=== PATIENT | male | born 1930 | race Caucasian/White ===

== ENCOUNTER 2016-06-22 15:04 | Inpatient (IN) | payer OTHER ==
--- NOTE | 2016-06-22 15:18 | PDOC ---
History of Present Illness - General History Source: Patient Exam Limitations: No Limitations - History of Present Illness Initial Comments: 06/22/16 16:40 Patient is a 85 year old male with a significant past medical history of DM and hypertension who presents to the ED via EMS with complaint of hypoglycemia. As per EMS patient was found to have BGM of 23 after D10 patient went up to 66 BGM. As per EMS, patient was found tachycardic at 120, diaphoretic, unresponsive and BP was fine. after glucose pt was feeling improved and seem at baseline. Patient is A&OX3 in the ED.. As per family, they ran out of blood sugar test strips, so they could not monitor his sugar for a couple of days. Patient reports dry cough and SOB for 1 week. He also reports dizziness. He reports bilateral leg swelling for 3 days. He denies nausea, vomiting, diarrhea, constipation or abdominal pain. SH: former smoker PCP - [facility] <Amber Álvarez - Last Filed: 06/22/16 16:40> <Franky Forte - Last Filed: 06/22/16 17:32> - General Chief Complaint: Blood Sugar Problem Stated Complaint: HYPOGLYCEMIA Time Seen by Provider: 06/22/16 15:18 Past History <Amber Álvarez - Last Filed: 06/22/16 16:40> - Past Medical History Diabetes: Yes HTN: Yes Hypercholesterolemia: Yes - Psycho/Social/Smoking Cessation Hx Suicidal Ideation: No Smoking History: Never smoked <Franky Forte - Last Filed: 06/22/16 17:32> - Past Medical History Allergies/Adverse Reactions: Allergies Allergy/AdvReac Type Severity Reaction Status Date / Time No Known Allergies Allergy Verified 06/22/16 15:18 Home Medications: Ambulatory Orders Enalapril Maleate 5 mg PO DAILY 06/22/16 Glipizide [Glipizide Xl] 10 mg PO DAILY 06/22/16 Insulin Detemir [Levemir Flextouch] 20 unit SQ DAILY 06/22/16 Metformin HCl [Metformin HCl ER] 1,000 mg PO BID 06/22/16 Simvastatin 40 mg PO HS 06/22/16 Review of Systems - Review of Systems Able to Perform ROS?: Yes Comments:: 06/22/16 16:40 CONSTITUTIONAL: No reported: Fever, Chills, Diaphoresis, Generalized Weakness, Malaise, Loss of Appetite HEENT: No reported: Rhinorrhea, Nasal Congestion, Throat Pain, Throat Swelling, Difficulty Swallowing, Mouth Swelling, Ear Pain, Eye Pain, Visual Changes CARDIOVASCULAR: No reported: Chest Pain, Syncope, Palpitations, Irregular Heart Rate, Lightheadedness, Peripheral Edema RESPIRATORY: Reported: cough, sob No reported: SOB with Exertion, Orthopnea, Wheezing, Stridor, Hemoptysis GASTROINTESTINAL: No reported: Abdominal pain, Abdominal Distension, Nausea, Vomiting, Diarrhea, Constipation, Melena, Hematochezia GENITOURINARY: No reported: Dysuria, Frequency, Urgency, Hesitancy, Flank Pain, Genital Pain MUSCULOSKELETAL: Reported: leg swelling No reported: Myalgia, Arthralgia, Joint Swelling, Back pain, Neck Pain SKIN: No reported: Rash, Itching, Pallor HEMEATOLOGIC/IMMUNOLOGIC: No reported: Easy Bleeding, Easy Bruising, Lymphadenopathy, Frequent infections ENDOCRINE: No reported: Unexplained Weight Gain, Unexplained Weight Loss, Heat Intolerance , Cold Intolerance NEUROLOGIC: No reported: Headache, Focal Weakness, Paresthesias, Vertigo, Lightheadedness, Unsteady Gait, Seizure, Mental Status Changes, Incontinence PSYCHIATRIC: No reported: Anxiety, Depression <Amber Álvarez - Last Filed: 06/22/16 16:40> *Physical Exam - Vital Signs Last Vital Signs Temp Pulse Resp BP Pulse Ox 97.3 F L 100 H 18 140/90 93 L 06/22/16 15:16 06/22/16 15:16 06/22/16 15:16 06/22/16 15:16 06/22/16 15:16 - Physical Exam Comments: 06/22/16 16:41 GENERAL: The patient is awake, alert, and fully oriented, Nontoxic - in no acute distress. HEAD: Normocephalic, atraumatic. EYES: extraocular movements intact, sclera anicteric, conjunctiva clear. ENT: Normal voice, Moist mucous membranes. NECK: Normal range of motion, supple LUNGS: rales at the bases r>l HEART: Regular rate and rhythm, normal S1 and S2 without murmur, rub or gallop. ABDOMEN: Soft, nontender, normoactive bowel sounds. No guarding, no rebound. No CVA tenderness +dependent edema in the lower back EXTREMITIES: Normal range of motion, +1 pitting edema in the LE, +2x2cm wound with clean margins on L toe without discharge, warmth, induration, slightly erytyemadous. NEUROLOGICAL: No facial assymetry, Normal speech, moving all 4 extrmitiesi spontaneously and symmetrically PSYCH: Normal mood, normal affect. SKIN: Warm, Dry, normal turgor, <Amber Álvarez - Last Filed: 06/22/16 16:40> - Vital Signs Last Vital Signs Temp Pulse Resp BP Pulse Ox 97.3 F L 100 H 18 140/90 93 L 06/22/16 15:16 06/22/16 15:16 06/22/16 15:16 06/22/16 15:16 06/22/16 15:16 <Franky Forte - Last Filed: 06/22/16 17:32> Heart Score/ECG Review - ECG Impressions Comment:: 06/22/16 17:30 Twelve-lead EKG was performed and reviewed by me. There is normal sinus rhythm with a normal rate. Rate of 99 low voltaege qrs, no signs of electrical alternans abnormal r wave progression <Franky Forte - Last Filed: 06/22/16 17:32> ED Treatment Course - LABORATORY CBC & Chemistry Diagram: 06/22/16 15:19 06/22/16 15:19 - ADDITIONAL ORDERS Additional order review: Laboratory Results 06/22/16 06/22/16 06/22/16 15:19 15:19 15:19 INR 1.26 H Sodium 135 L Potassium 3.5 Chloride 96 L Carbon Dioxide 30 Anion Gap 9 BUN 15 Creatinine 1.0 Creat Clearance w eGFR > 60 Random Glucose 72 L Calcium 7.4 L Total Bilirubin 0.6 AST 23 ALT 16 Alkaline Phosphatase 193 H Creatine Kinase 238 Troponin I 0.02 Total Protein 6.8 Albumin 2.9 L TSH 8.13 H Urine Color Yellow Urine Appearance Clear Urine pH 6.0 Ur Specific [place] 1.010 Urine Protein Negative Urine Glucose (UA) 1+ H Urine Ketones Negative Urine Blood Negative Urine Nitrite Negative Urine Bilirubin Negative Urine Urobilinogen 4.0 e.u/dl Ur Leukocyte Esterase Negative 06/22/16 15:19 RBC 3.95 L MCV 89.5 MCHC 33.0 RDW 14.7 MPV 9.2 Neutrophils % 71.9 Lymphocytes % 16.3 Monocytes % 10.3 H Eosinophils % 1.0 Basophils % 0.5 <Amber Álvarez - Last Filed: 06/22/16 16:40> - LABORATORY CBC & Chemistry Diagram: 06/22/16 15:19 06/22/16 15:19 <Franky Forte - Last Filed: 06/22/16 17:32> Medical Decision Making - Medical Decision Making 06/22/16 16:35 Documentation prepared by MINESH Oneill, acting as medical device sales consultant for Franky Forte MD. <Amber Álvarez - Last Filed: 06/22/16 16:40> - Medical Decision Making 06/22/16 15:33 85y M hx of htn, IDDM, HL, presenting with hypoglycemia. The patient was having a nonproductive cough/lema for about a week w/o and fever/chills, today the pt was found unresponsive, diaphoretic with bgm of 25 by EMS, was gven D10 withimporvement to 66, and received d50 here in the ED. pt is currently alert/ oriented and denies any complaints. pt does have edema in the LE as well as some dependent edema on his lower back. pts vitals noted for hypoxia to 93% no RA, some mild rales noted on his pulm exam suspect hypoglycemia secondary to insulin use in setting of not checking his blood suguar. his hypoxia/rales --> chf, renal failure, will ck labs to r/o anemia, metabolic dernagement, acs will place on quality assurance monitor body 06/22/16 16:53 pt just had an episode of hypoglycemia, bgm in th e50s was diaphoretic, confused pt was given d50 with improvement of sypmtoms will feed the ptaient pts labs reviewed noted for hypothyroidism cxr noted for vsacular congestion in light of pts hypoglycemia, edema, suspet may be related to hypothyroidism will admit for further management and work up. 06/22/16 17:00 CRITICAL CARE DOCUMENTATION: I spent ~35 minutes of Critical Care time, excluding separately billable procedures, involving high complexity decision making to assess, manipulate and support vital system function(s) to treat single or multiple vital organ system failure and/or to prevent further life threatening deterioration of the patient' s condition. <Franky Forte - Last Filed: 06/22/16 17:32> *DC/Admit/Observation/Transfer <Amber Álvarez - Last Filed: 06/22/16 16:40> - Discharge Dispostion Admit: Yes <Franky Forte - Last Filed: 06/22/16 17:32> Diagnosis at time of Disposition: Hypoglycemia Hypothyroid Qualifiers: Hypothyroidism type: unspecified Qualified Code(s): E03.9 - Hypothyroidism, unspecified CHF (congestive heart failure) Qualifiers: Congestive heart failure type: unspecified congestive heart failure type Congestive heart failure chronicity: acute Qualified Code(s): I50.9 - Heart failure, unspecified - Referrals Referrals: Sue Brown MD [Primary Care Provider] -
[2016-06-22 15:21] VITALS: BMI 26.9
[2016-06-22 15:39] LABS: BASOPHIL 0.5 % (0-2.0); MCH 29.5 pg (25.7-33.7); MEAN CELL VOLUME 89.5 fl (80-96); MEAN PLT VOLUME 9.2 fl (7.5-11.1); NEUTROPHILS 71.9 % (42.8-82.8); RDW 14.7 % (11.9-15.9); WHITE BLOOD COUNT 4.5 K/mm3 (4.0-10.0)
[2016-06-22 15:50] LABS: INR 1.26 (0.82-1.09); PROTHROMBIN TIME (PATIENT) 13.9 SEC (9.98-11.88)
[2016-06-22 15:57] LABS: PLATELET COMMENT2 FEW LARGE PLTS; PLATELET ESTIMATE DECREASED (NORMAL)
[2016-06-22 15:58] LABS: PLATELET COUNT 131 K/MM3 (134-434)
[2016-06-22 16:00] LABS: ALBUMIN 2.9 g/dl (3.4-5.0); ANION GAP 9 (8-16); BILIRUBIN,TOTAL 0.6 mg/dL (0.2-1.0); CALCIUM 7.4 mg/dL (8.5-10.1); CO2 30 mmol/L (21-32); COCKROFT - GAULT 54.39; GLUCOSE,RANDOM 72 mg/dL (74-106); SGOT/AST 23 U/L (15-37); SGPT/ALT 16 U/L (12-78); TOT PROT 6.8 g/dl (6.4-8.2)
[2016-06-22 16:05] LABS: URINE APPEARANCE CLEAR; URINE BILIRUBIN NEGATIVE (NEGATIVE); URINE BLOOD NEGATIVE (NEGATIVE); URINE COLOR YELLOW; URINE GLUCOSE (UA) 1+ (NEGATIVE); URINE KETONE NEGATIVE (NEGATIVE); URINE LEUK ESTERASE NEGATIVE (NEGATIVE); URINE NITRITE NEGATIVE (NEGATIVE); URINE PROTEIN NEGATIVE (NEGATIVE); URINE UROBILINOGEN 4.0 E.U/dl E.U./dl (0.2-1.0)
[2016-06-22 16:08] LABS: ALK PHOS 193 U/L (45-117); THYROID STIMULATING HORMONE 8.13 uIU/ml (0.358-3.74); TROPONIN I 0.02 ng/ml (0.00-0.05)
[2016-06-22] MEDS ORDERED: DEXTROSE 50%-WATER 50 ML DISP.SYRIN ONE ×4 (16:45→23:45)
[2016-06-22] MEDS ORDERED: FUROSEMIDE 40 MG/4 ML INJECTABLE VIAL IVPUSH ONE (17:00)
[2016-06-22] MEDS ORDERED: FUROSEMIDE 40 MG/4 ML INJECTABLE VIAL ONE (17:12)
[2016-06-22] MEDS ORDERED: DEXTROSE 50%-WATER 50 ML VIAL IVPUSH ONE (18:00)
[2016-06-22] MEDS ORDERED: HEMOQUE TEST 1 EACH EACH ONE (18:16)
--- NOTE | 2016-06-22 18:28 | HP ---
Addendum entered and electronically signed by [email or web address] 06/24/16 08: 02: Correct physical exam: GENERAL: Awake, alert, and fully oriented, in no acute distress. HEAD: Normal with no signs of trauma. EYES: Pupils equal, round and reactive to light, extraocular movements intact, sclera anicteric, conjunctiva clear. No lid lag. EARS, NOSE, THROAT: oropharynx clear without exudates. Moist mucous membranes. NECK: supple +JVD, LUNGS: bibasilar rales HEART: Regular rate and rhythm, normal S1 and S2 grade 2 systolic murmur, PMI deviated left ABDOMEN: Soft, nontender, mod distended distended, globally redyced bowel sounds , lower abd edema MUSCULOSKELETAL: No CVA tenderness. UPPER EXTREMITIES: 2+ pulses, warm, well-perfused. No cyanosis. No clubbing. No peripheral edema. LOWER EXTREMITIES: notp alpable pulses, cool, 3+ pitting edema. NEUROLOGICAL: Cranial nerves II-XII intact. Normal speech. strength 4+/5 , 1+ reflexes upper and lower extremities, PSYCHIATRIC: Cooperative. Good eye contact. Appropriate mood and affect. SKIN: Warm, dry Original Note: CHIEF COMPLAINT: "I have low blood sugar" PCP:Dr Lacie Ontiveros at [address] [place] [address] HISTORY OF PRESENT ILLNESS: This is an 85 yo M with PMH of IDDM, HTN, HLD, who BBEMS after being found unresponsive by . [place] his BG was 23 and increased to 66 after d50 at which time he regained consciousness with baseline mental status. Per family , he developed a subjective fever 2 w ago w/o associated symptoms of sore throat , rhinorrhea, dysuria, diarrhea. 2 weeks ago he also developed a dry cough, increased exercise intolerance with minimal activity of daily living and difficulty sleeping, possibly due to orthopnea. 1 week ago he developed anorexia. 3 days ago he developed diffuse edema, especially in the lower extremities. He denies chest pain or discomfort, palpitations, loc or dizziness. 3 days ago his metformin dose was doubled to 1000 bid. He does not use glucometer strips, states he only checks sugar at doctors office at which time is is 500 and doesn't know his A1C. He has no electronic warfare officer or personal history of heart disease, however he does admit to b/l calf cramping during activity. History partially obtained from . In Er his bg remains in 50's-60' s despite eating. ER course was notable for: (1)labs (2)ekg, cxr (3)lasix 40, d 50 Recent Travel: denies PAST MEDICAL HISTORY: as above PAST SURGICAL HISTORY: denies Social History: lives with Smoking: past heavy smoker Alcohol: denies Drugs: denies Family History: heart disease in mother Allergies No Known Allergies Allergy (Verified 06/22/16 15:18) HOME MEDICATIONS: Home Medications Medication Instructions Recorded Enalapril Maleate 5 mg PO DAILY 06/22/16 Glipizide [Glipizide Xl] 10 mg PO DAILY 06/22/16 Insulin Detemir [Levemir Flextouch] 20 unit SQ DAILY 06/22/16 Metformin HCl [Metformin HCl ER] 1,000 mg PO BID 06/22/16 Simvastatin 40 mg PO HS 06/22/16 REVIEW OF SYSTEMS CONSTITUTIONAL: Absent: diaphoresis HEENT: Absent: rhinorrhea, nasal congestion, throat pain CARDIOVASCULAR: Absent: chest pain, syncope, palpitations, irregular heart rate, lightheadedness RESPIRATORY: Absent: wheezing, stridor, hemoptysis GASTROINTESTINAL: Absent: abdominal pain, nausea, vomiting, diarrhea, constipation GENITOURINARY: Absent: dysuria, flank pain MUSCULOSKELETAL: Absent: myalgia, arthralgia SKIN: Absent: rash, itching, pallor HEMATOLOGIC/IMMUNOLOGIC: Absent: easy bleeding, easy bruising ENDOCRINE: Absent: heat intolerance, cold intolerance NEUROLOGIC: Absent: headache, focal weakness or paresthesias, seizure PSYCHIATRIC: Absent: anxiety, depression PHYSICAL EXAMINATION Vital Signs - 24 hr 06/22/16 17:55 Pulse Rate [ 92 H Apical] Respiratory 18 Rate Blood Pressure 132/82 [Right Arm] O2 Sat by Pulse 96 Oximetry (%) Laboratory Tests 06/22/16 06/22/16 06/22/16 15:19 15:19 15:19 WBC 4.5 Hgb 11.6 L Hct 35.3 L Plt Count 131 L INR 1.26 H Sodium Potassium Chloride Carbon Dioxide Anion Gap BUN Creatinine Creat Clearance w eGFR POC Glucometer Random Glucose Calcium Total Bilirubin AST ALT Alkaline Phosphatase Creatine Kinase Creatine Kinase Index CK-MB (CK-2) Troponin I B-Natriuretic Peptide Total Protein Albumin TSH Urine Color Yellow Urine Appearance Clear Urine pH 6.0 Ur Specific [place] 1.010 Urine Protein Negative Urine Glucose (UA) 1+ H Urine Ketones Negative Urine Blood Negative Urine Nitrite Negative Urine Bilirubin Negative Urine Urobilinogen 4.0 e.u/dl Ur Leukocyte Esterase Negative 06/22/16 06/22/16 06/22/16 15:19 16:21 16:46 WBC Hgb Hct Plt Count INR Sodium 135 L Potassium 3.5 Chloride 96 L Carbon Dioxide 30 Anion Gap 9 BUN 15 Creatinine 1.0 Creat Clearance w eGFR > 60 POC Glucometer < 50 Random Glucose 72 L Calcium 7.4 L Total Bilirubin 0.6 AST 23 ALT 16 Alkaline Phosphatase 193 H Creatine Kinase 238 Creatine Kinase Index 2.4 CK-MB (CK-2) 5.710 H Troponin I 0.02 B-Natriuretic Peptide 8222.24 H Total Protein 6.8 Albumin 2.9 L TSH 8.13 H Urine Color Urine Appearance Urine pH Ur Specific [place] Urine Protein Urine Glucose (UA) Urine Ketones Urine Blood Urine Nitrite Urine Bilirubin Urine Urobilinogen Ur Leukocyte Esterase GENERAL: Awake, alert, and fully oriented, in no acute distress. HEAD: Normal with no signs of trauma. EYES: Pupils equal, round and reactive to light, extraocular movements intact, sclera anicteric, conjunctiva clear. No lid lag. EARS, NOSE, THROAT: Ears normal, nares patent, oropharynx clear without exudates. Moist mucous membranes. NECK: Normal range of motion, supple without lymphadenopathy, JVD, or masses. LUNGS: Breath sounds equal, clear to auscultation bilaterally. No wheezes, and no crackles. No accessory muscle use. HEART: Regular rate and rhythm, normal S1 and S2 without murmur, rub or gallop. ABDOMEN: Soft, nontender, not distended, normoactive bowel sounds, no guarding, no rebound, no masses. No hepatomegaly or splenomegaly. MUSCULOSKELETAL: Normal range of motion at all joints. No bony deformities or tenderness. No CVA tenderness. UPPER EXTREMITIES: 2+ pulses, warm, well-perfused. No cyanosis. No clubbing. No peripheral edema. LOWER EXTREMITIES: 2+ pulses, warm, well-perfused. No calf tenderness. No peripheral edema. NEUROLOGICAL: Cranial nerves II-XII intact. Normal speech. Normal gait. PSYCHIATRIC: Cooperative. Good eye contact. Appropriate mood and affect. SKIN: Warm, dry, normal turgor, no rashes or lesions noted, normal capillary refill. ASSESSMENT/PLAN: This is an 85 yo M with PMH of IDDM, HTN, HLD, who BBEMS after being found unresponsive by . [place] his BG was 23 and increased to 66 after d50 at which time he regained consciousness with baseline mental status. Acute decompensated CHF -possibly brought on by a febrile illness, r/o flu (check swab) vs progression of likely CAD -volume overloaded -EKG l axis, 1 degree av block, poor rv progression, sonspecif t flattening in inferolateral leads, no ACS -trop negative, check one more -BNP 8222 -tele monitoring -lipid panel -TTE -cardio consult -lasix 40 bid IV -will eventually need beta deepthi -will likely need nuclear stress test Hypoglycemia -due to anorexia associated with chf and increased metformin -hold metformin 100bid, glipizide 10 d and levemir 20 d -D10w @25 -BGM q2H IDDM -A1c -diabetic Na restricted diet Possible Hypothyroid -TSH 8.13 -f/u free t4 HTN -enalapril 5d HLD -atorvastatin 40 hs Suspect PAD -would check ankle brachial index FEN D10W@25 slight hyponatremia, hypochloremia due to vol overload Diabetic na restricted diet Dispo admit tele Problem List - Problem (1) CHF (congestive heart failure) Code(s): I50.9 - HEART FAILURE, UNSPECIFIED Qualifiers: Congestive heart failure type: unspecified congestive heart failure type Congestive heart failure chronicity: acute Qualified Code(s): I50.9 - Heart failure, unspecified (2) Hypoglycemia Code(s): E16.2 - HYPOGLYCEMIA, UNSPECIFIED (3) Hypothyroid Code(s): E03.9 - HYPOTHYROIDISM, UNSPECIFIED Qualifiers: Hypothyroidism type: unspecified Qualified Code(s): E03.9 - Hypothyroidism, unspecified (4) Insulin dependent diabetes mellitus Code(s): E11.9 - TYPE 2 DIABETES MELLITUS WITHOUT COMPLICATIONS Z79.4 - GROUP HOME (CURRENT) USE OF INSULIN (5) HLD (hyperlipidemia) Code(s): E78.5 - HYPERLIPIDEMIA, UNSPECIFIED (6) HTN (hypertension) Code(s): I10 - ESSENTIAL (PRIMARY) HYPERTENSION Visit type - Emergency Visit Emergency Visit: Yes ED Registration Date: 06/22/16 Care time: The patient presented to the Emergency Department on the above date and was hospitalized for further evaluation of their emergent condition. - New Patient This patient is new to me today: Yes Date on this admission: 06/22/16 - Critical Care Critical Care patient: No
[2016-06-22] MEDS ORDERED: DEXTROSE 10%-WATER - 1,000 ML IV SCH ×2 (18:45→23:54)
--- NOTE | 2016-06-22 19:21 | PN ---
Teaching Attending Note Name of Resident: Devika Eric ATTENDING PHYSICIAN STATEMENT I saw and evaluated the patient. I reviewed the resident's note and discussed the case with the resident. I agree with the resident's findings and plan as documented. SUBJECTIVE: 85 yo M with DM presents with hypoglycemia and 1-2 weeks of cough, decreased ET. Patient and his famliy state that he recently refilled his scripts for his medication. He did not see his doctor bu for some readson his metformin increased from 500mg once a day to 1000 BID, in addition to prior glipizide and levemir 20. He was found slumped over this afternoon. EMS was called and fsg ws 27. He was given d50 with improvement in FSG and menatl status. IN addition, over the last 1-2 weeks he has developed a dry cough and bilateral LE edema up to the hip with associated decreased ET, getting SOB gong from room to room. he has not had any chest pain palpitations, nausea, vomiting. OBJECTIVE: Gen: NAD HEENT: (+) JVD cor: RRR no m/r/g Resp: faint crackles at bases abdomen: soft, NT, ND ext: 2(+) edema to the hip labs, CXR, EkG reviewed ASSESSMENT AND PLAN: 85 yo M with DM presents with hypoglycemia and 1-2 weeks of cough, decreased ET. Hypoglycemia in setting of increase in metformin and decrease PO over the the last week is likely responsible for hypoglycemia. Will continue to check FSG, give D10 gtt, hold hypoglycemics and insulin. Once FSG improved may start back home meds. would check hba1c. If acceptable a1c his prior regimen may be sufficient. He appears to be iun decomepnsated heart failure with elevated BNP and peripheral edema. Will begin diuresis. EKG with poor RW progression. Will order TTE. Need to follow lytes closely.
[2016-06-22] MEDS ORDERED: DEXTROSE 50%-WATER 50 ML DISP.SYRIN IVPUSH ONE ×2 (20:17→22:02)
[2016-06-22] MEDS: HEPARIN NA (PORCINE) 5,000 UNITS/ML 1ML VIAL SQ SCH (22:43)
[2016-06-22] MEDS: ATORVASTATIN CA 40 MG TABLET (FP) PO SCH (22:44)
[2016-06-22] MEDS: INSULIN SLIDING SCALE (NOVOLOG) 1 VIAL SQ SCH (22:44)
[2016-06-22] MEDS ORDERED: DEXTROSE 50%-WATER 50 ML VIAL ONE (23:56)
[2016-06-23] MEDS ORDERED: DEXTROSE 50%-WATER 50 ML DISP.SYRIN IVPUSH ONE (00:15)
[2016-06-23] MEDS ORDERED: DEXTROSE 50%-WATER 50 ML VIAL IVPUSH ONE ×7 (01:10→23:59)
[2016-06-23] MEDS ORDERED: DEXTROSE 50%-WATER 50 ML VIAL ONE ×4 (01:42→12:21)
[2016-06-23] MEDS ORDERED: DEXTROSE 10%-WATER - 1,000 ML IV SCH ×5 (01:57→17:00)
[2016-06-23] MEDS ORDERED: WATER IV SCH (04:15)
[2016-06-23] MEDS ORDERED: WATER FOR INJ STERILE DEXTROSE IV SCH (04:15)
[2016-06-23] MEDS ORDERED: FUROSEMIDE 40 MG/4 ML INJECTABLE VIAL IVPUSH SCH (06:00)
[2016-06-23] MEDS: INSULIN SLIDING SCALE (NOVOLOG) 1 VIAL SQ SCH ×3 (06:18→17:19)
[2016-06-23 08:40] LABS: MCH 29.6 pg (25.7-33.7); MCHC 33.1 g/dl (32.0-35.9); MEAN CELL VOLUME 89.6 fl (80-96); MEAN PLT VOLUME 9.3 fl (7.5-11.1); PLATELET COUNT 140 K/MM3 (134-434); RDW 14.7 % (11.9-15.9); WHITE BLOOD COUNT 5.6 K/mm3 (4.0-10.0)
[2016-06-23 08:59] LABS: CALCIUM 7.8 mg/dL (8.5-10.1); MAGNESIUM 1.7 mg/dL (1.8-2.4)
[2016-06-23 09:04] LABS: COCKROFT - GAULT 63.29; CREATININE 0.9 mg/dL (0.7-1.3); FREE T4 1.14 ng/dl (0.76-1.16)
[2016-06-23] MEDS ORDERED: MAGNESIUM SULF 50% (8.12 MEQ/2 ML-1 GM VIAL) IVPB ONE (09:30)
--- NOTE | 2016-06-23 09:37 | CONSULT ---
Consult - text type - Consultation Consultation Note: Cardiology 85 year old male, DM , HTN, lipids exertional dyspnea, fatigue for 3 days, admitted with syncope and low blood sugar. He denies any cardiac symptoms, otherwise. social NA allergy NA Fh NA Surgery NA PMH as above PE: BP high and low normal cardiac exam pulmonary exam fine rales 1/2 up abdomen soft + 3 leg edema EKG NSR, low voltage, low R anteriorly, non-specific T CXR cardiomegaly, CHF Impression: syncope low BG CHF, no SC or arrythmias Evaluate for CAD leg edema, ? due to CHF, but venous disease or other etiology maybe evaluated Rec: Corina Echocardiogram will re-evaluate after Echocardiogram results aspirin 81 mg daily DVT prophylaxis
--- NOTE | 2016-06-23 09:37 | PN ---
Progress Note (short form) - Note Progress Note: Subjective: no cp or SOB , has no fever , no cough, feels " fine ". over night he remained hypoglycemic and required increased rate of his D10 IVF and frequent D50 pushes Objective: Vital Signs: Last Vital Signs Temp Pulse Resp BP Pulse Ox 98.9 F 101 H 20 167/72 98 06/23/16 08:38 06/23/16 08:38 06/23/16 08:38 06/23/16 08:38 06/23/16 04:38 I&O: Intake & Output 06/20/16 06/21/16 06/22/16 06/23/16 23:59 23:59 23:59 23:59 Intake Total 175 290 Balance 175 290 Weight 174 lb 12.8 oz 164 lb 6.4 oz Physical Exam: NAD , Awake , alet , knows he is in a hospital, knows his date of , not current date . HEENT: b/l periorbital edema , round equal pupils , reactive to light , no facial droop, MMM. CV: RRR, no MRG. JVD b/l Lungs " bibasilar crackles Abd :soft, NT, ND , NL BS Ext : 2+ pitting edema on LE , from knee down L > R and on both feet. L medial big toe ulcer with black eschar . evidence of fungal infection among toes b/l Labs: Laboratory Results - last 24 hr 06/22/16 06/22/16 06/22/16 15:19 15:19 15:19 WBC 4.5 RBC 3.95 L Hgb 11.6 L Hct 35.3 L MCV 89.5 MCHC 33.0 RDW 14.7 Plt Count 131 L MPV 9.2 Neutrophils % 71.9 Lymphocytes % 16.3 Monocytes % 10.3 H Eosinophils % 1.0 Basophils % 0.5 Platelet Estimate Decreased Platelet Comment Few large plts INR 1.26 H Sodium Potassium Chloride Carbon Dioxide Anion Gap BUN Creatinine Creat Clearance w eGFR POC Glucometer Random Glucose Hemoglobin A1c % Calcium Phosphorus Magnesium Total Bilirubin AST ALT Alkaline Phosphatase Creatine Kinase Creatine Kinase Index CK-MB (CK-2) CK-MB (CK-2) Rel Index Troponin I B-Natriuretic Peptide Total Protein Albumin TSH Free T4 Urine Color Yellow Urine Appearance Clear Urine pH 6.0 Ur Specific [place] 1.010 Urine Protein Negative Urine Glucose (UA) 1+ H Urine Ketones Negative Urine Blood Negative Urine Nitrite Negative Urine Bilirubin Negative Urine Urobilinogen 4.0 e.u/dl Ur Leukocyte Esterase Negative 06/22/16 06/22/16 06/22/16 15:19 15:19 16:21 WBC RBC Hgb Hct MCV MCHC RDW Plt Count MPV Neutrophils % Lymphocytes % Monocytes % Eosinophils % Basophils % Platelet Estimate Platelet Comment INR Sodium 135 L Potassium 3.5 Chloride 96 L Carbon Dioxide 30 Anion Gap 9 BUN 15 Creatinine 1.0 Creat Clearance w eGFR > 60 POC Glucometer Random Glucose 72 L Hemoglobin A1c % Calcium 7.4 L Phosphorus Magnesium Total Bilirubin 0.6 AST 23 ALT 16 Alkaline Phosphatase 193 H Creatine Kinase 238 Creatine Kinase Index 2.4 CK-MB (CK-2) 5.710 H CK-MB (CK-2) Rel Index Cancelled Troponin I 0.02 B-Natriuretic Peptide 8222.24 H Total Protein 6.8 Albumin 2.9 L TSH 8.13 H Free T4 Urine Color Urine Appearance Urine pH Ur Specific [place] Urine Protein Urine Glucose (UA) Urine Ketones Urine Blood Urine Nitrite Urine Bilirubin Urine Urobilinogen Ur Leukocyte Esterase 06/22/16 06/22/16 06/22/16 16:46 18:20 19:30 WBC RBC Hgb Hct MCV MCHC RDW Plt Count MPV Neutrophils % Lymphocytes % Monocytes % Eosinophils % Basophils % Platelet Estimate Platelet Comment INR Sodium Potassium Chloride Carbon Dioxide Anion Gap BUN Creatinine Creat Clearance w eGFR POC Glucometer < 50 144.64656 Random Glucose Hemoglobin A1c % Calcium Phosphorus Magnesium Total Bilirubin AST ALT Alkaline Phosphatase Creatine Kinase Creatine Kinase Index CK-MB (CK-2) CK-MB (CK-2) Rel Index Troponin I 0.02 B-Natriuretic Peptide Total Protein Albumin TSH Free T4 Urine Color Urine Appearance Urine pH Ur Specific [place] Urine Protein Urine Glucose (UA) Urine Ketones Urine Blood Urine Nitrite Urine Bilirubin Urine Urobilinogen Ur Leukocyte Esterase 06/22/16 06/23/16 06/23/16 22:42 00:43 01:39 WBC RBC Hgb Hct MCV MCHC RDW Plt Count MPV Neutrophils % Lymphocytes % Monocytes % Eosinophils % Basophils % Platelet Estimate Platelet Comment INR Sodium Potassium Chloride Carbon Dioxide Anion Gap BUN Creatinine Creat Clearance w eGFR POC Glucometer 61 58 92 Random Glucose Hemoglobin A1c % Calcium Phosphorus Magnesium Total Bilirubin AST ALT Alkaline Phosphatase Creatine Kinase Creatine Kinase Index CK-MB (CK-2) CK-MB (CK-2) Rel Index Troponin I B-Natriuretic Peptide Total Protein Albumin TSH Free T4 Urine Color Urine Appearance Urine pH Ur Specific [place] Urine Protein Urine Glucose (UA) Urine Ketones Urine Blood Urine Nitrite Urine Bilirubin Urine Urobilinogen Ur Leukocyte Esterase 06/23/16 06/23/16 06/23/16 03:50 04:25 05:20 WBC RBC Hgb Hct MCV MCHC RDW Plt Count MPV Neutrophils % Lymphocytes % Monocytes % Eosinophils % Basophils % Platelet Estimate Platelet Comment INR Sodium Potassium Chloride Carbon Dioxide Anion Gap BUN Creatinine Creat Clearance w eGFR POC Glucometer 55 Random Glucose 69 L 34 L* D Hemoglobin A1c % Calcium Phosphorus Magnesium Total Bilirubin AST ALT Alkaline Phosphatase Creatine Kinase Creatine Kinase Index CK-MB (CK-2) CK-MB (CK-2) Rel Index Troponin I B-Natriuretic Peptide Total Protein Albumin TSH Free T4 Urine Color Urine Appearance Urine pH Ur Specific [place] Urine Protein Urine Glucose (UA) Urine Ketones Urine Blood Urine Nitrite Urine Bilirubin Urine Urobilinogen Ur Leukocyte Esterase 06/23/16 06/23/16 06/23/16 06:26 06:30 06:30 WBC 5.6 RBC 4.03 Hgb 11.9 Hct 36.1 MCV 89.6 MCHC 33.1 RDW 14.7 Plt Count 140 MPV 9.3 Neutrophils % Lymphocytes % Monocytes % Eosinophils % Basophils % Platelet Estimate Platelet Comment INR Sodium 133 L Potassium 3.7 Chloride 93 L Carbon Dioxide 30 Anion Gap 10 BUN 12 Creatinine 0.9 Creat Clearance w eGFR POC Glucometer 62 Random Glucose 23 L* D Hemoglobin A1c % Calcium 7.8 L Phosphorus 4.0 Magnesium 1.7 L Total Bilirubin AST ALT Alkaline Phosphatase Creatine Kinase Creatine Kinase Index CK-MB (CK-2) CK-MB (CK-2) Rel Index Troponin I B-Natriuretic Peptide Total Protein Albumin TSH Free T4 1.14 Urine Color Urine Appearance Urine pH Ur Specific [place] Urine Protein Urine Glucose (UA) Urine Ketones Urine Blood Urine Nitrite Urine Bilirubin Urine Urobilinogen Ur Leukocyte Esterase 06/23/16 06/23/16 06/23/16 06:30 07:00 08:05 WBC RBC Hgb Hct MCV MCHC RDW Plt Count MPV Neutrophils % Lymphocytes % Monocytes % Eosinophils % Basophils % Platelet Estimate Platelet Comment INR Sodium Potassium Chloride Carbon Dioxide Anion Gap BUN Creatinine Creat Clearance w eGFR POC Glucometer 56 40 Random Glucose Hemoglobin A1c % 10.8 H Calcium Phosphorus Magnesium Total Bilirubin AST ALT Alkaline Phosphatase Creatine Kinase Creatine Kinase Index CK-MB (CK-2) CK-MB (CK-2) Rel Index Troponin I B-Natriuretic Peptide Total Protein Albumin TSH Free T4 Urine Color Urine Appearance Urine pH Ur Specific [place] Urine Protein Urine Glucose (UA) Urine Ketones Urine Blood Urine Nitrite Urine Bilirubin Urine Urobilinogen Ur Leukocyte Esterase Imaging: Cxray reviewed. congestion Assessment/Plan: 85 y/o gentleman with h/o IDDM , and HTN, who lives with daughter . He was lynnette here after being found unresponsive and was found to be in Heart failure and hypoglycemia 1- Persistent hypoglycemia : unlcear if patient took more of his glipizide or extra insulin as he injects his own insulin and has mild dementia. also has not been taking goop po in past week probably due to heart failure induced anorexia . Also glipizide might stay in his system for longer time . sugar still 30-40 despite increased rate of D10 . - increase rate of D10 to 65. - give PRN D50 pushes. - d/c diabetic diet until sugar is elevated - cont to hold all diabetic meds - pt is awake , and alert and at his base line mental status - if unable to treat , will consult Endo 2- New onset of acute decompensated heart failure. not celar if systolic or diastolic . not sure of trigger . - increase lasix to 60 BID as I am increasing his D10 rate . can always adjust dose later - I&O not being documented, insert oneill for accuracy - Echo is pending . - cont ACEI - avoid BB in acute phase, until his volume is managed and he is stable - transfer to tele to detect any arrhythmias - Card consult is still pending - trop nl x2 and EKG showed nl sinus rhythm with L axis and no ST.TW changes. has poor R progression - if Ef is low , might need a R , and L heart cath 3- Hyponatremia : likely hypotonic in setting hypervolemia from heart failure monitor 4- HTN: cont ACEI . can increase dose if needed 5- hypomagnesemia : replete DVT px Visit type - Emergency Visit Emergency Visit: Yes ED Registration Date: 06/22/16 Care time: The patient presented to the Emergency Department on the above date and was hospitalized for further evaluation of their emergent condition. - New Patient This patient is new to me today: Yes Date on this admission: 06/23/16 - Critical Care Critical Care patient: No
[2016-06-23] MEDS ORDERED: FUROSEMIDE 40 MG/4 ML INJECTABLE VIAL IVPUSH ONE (10:00)
[2016-06-23] MEDS ORDERED: ENALAPRIL MALEATE 5 MG TABLET (FP) PO SCH (10:00)
[2016-06-23] MEDS: ASPIRIN COATED 81 MG TABLET.EC PO SCH (10:12)
[2016-06-23] MEDS: ENALAPRIL MALEATE 2.5 MG TABLET (FP) PO SCH (10:12)
[2016-06-23] MEDS: HEPARIN NA (PORCINE) 5,000 UNITS/ML 1ML VIAL SQ SCH ×2 (10:12→21:11)
[2016-06-23 11:34] LABS: URINE APPEARANCE CLEAR; URINE BILIRUBIN NEGATIVE (NEGATIVE); URINE BLOOD NEGATIVE (NEGATIVE); URINE COLOR COLORLESS; URINE GLUCOSE (UA) NEGATIVE (NEGATIVE); URINE KETONE NEGATIVE (NEGATIVE); URINE LEUK ESTERASE NEGATIVE (NEGATIVE); URINE NITRITE NEGATIVE (NEGATIVE); URINE PROTEIN NEGATIVE (NEGATIVE); URINE UROBILINOGEN NEGATIVE E.U./dl (0.2-1.0)
--- NOTE | 2016-06-23 12:28 | EKG ---
Test Reason : Blood Pressure : / mmHG Vent. Rate : 099 BPM Atrial Rate : 099 BPM P-R Int : 178 ms QRS Dur : 088 ms QT Int : 310 ms P-R-T Axes : 031 -27 065 degrees QTc Int : 397 ms NORMAL SINUS RHYTHM LOW VOLTAGE QRS CANNOT RULE OUT ANTERIOR INFARCT , AGE UNDETERMINED NONSPECIFIC ST ABNORMALITY ABNORMAL ECG NO PREVIOUS ECGS AVAILABLE Confirmed by AMAIRANI SHAH MD ([id number]) on 06/23/2016 12:28:03 PM Referred By: Confirmed By:AMAIRANI SHAH MD
[2016-06-23] MEDS: FUROSEMIDE 40 MG/4 ML INJECTABLE VIAL IVPUSH SCH (15:06)
[2016-06-23] MEDS: ATORVASTATIN CA 40 MG TABLET (FP) PO SCH (21:11)
[2016-06-24] MEDS: FUROSEMIDE 40 MG/4 ML INJECTABLE VIAL IVPUSH SCH ×2 (06:37→14:56)
[2016-06-24] MEDS: INSULIN SLIDING SCALE (NOVOLOG) 1 VIAL SQ SCH ×4 (06:37→16:41)
[2016-06-24 09:04] LABS: ALBUMIN 2.9 g/dl (3.4-5.0); ANION GAP 10 (8-16); CALCIUM 7.7 mg/dL (8.5-10.1); CO2 33 mmol/L (21-32); GLUCOSE,RANDOM 107 mg/dL (74-106); MAGNESIUM 1.8 mg/dL (1.8-2.4); PHOSPHOROUS 3.7 mg/dL (2.5-4.9)
[2016-06-24 09:07] LABS: ALK PHOS 162 U/L (45-117); BILIRUBIN,TOTAL 0.7 mg/dL (0.2-1.0); COCKROFT - GAULT 56.86; SGOT/AST 24 U/L (15-37); SGPT/ALT 15 U/L (12-78); TOT PROT 6.6 g/dl (6.4-8.2)
[2016-06-24] MEDS: ASPIRIN COATED 81 MG TABLET.EC PO SCH (11:11)
[2016-06-24] MEDS: HEPARIN NA (PORCINE) 5,000 UNITS/ML 1ML VIAL SQ SCH ×2 (11:12→22:22)
[2016-06-24] MEDS: ENALAPRIL MALEATE 2.5 MG TABLET (FP) PO SCH (11:13)
--- NOTE | 2016-06-24 14:18 | PN ---
Teaching Attending Note Name of Resident: Devika Eric ATTENDING PHYSICIAN STATEMENT I saw and evaluated the patient. I reviewed the resident's note and discussed the case with the resident. I agree with the resident's findings and plan as documented. SUBJECTIVE: no fever or chills, no SOB , no REZA . OBJECTIVE: NAD, Awake , alet , knows he is in a hospital, knows his date of , not current date. HEENT: b/l periorbital edema better today , round equal pupils CV: RRR, no MRG. JVD b/l Lungs : bibasilar crackles( improved ) Abd :soft, NT, ND , NL BS Ext: 1+ pitting edema on LE , from knee down L > R and on both feet. L medial big toe ulcer with black eschar . evidence of fungal infection among toes b/ l ASSESSMENT AND PLAN: 85 y/o gentleman with h/o IDDM , and HTN, who lives with daughter . He was lynnette here after being found unresponsive and was found to be in Heart failure and hypoglycemia 1- Hypoglycemia : likely due to decreased po intake, and decreased liver metabolism of his glipizide ( due to heart failure ) Finally GLC has improved - dc D10 . - check BGM q 2 hrs for today. cover only if GlC > 200 fro today - will adjust SSI and might resume levemir tomorrow - change diet to diabetic 2- New onset of acute decompensated heart failure. not celar if systolic or diastolic . - cont lasix at 60 BID - echo pending - cont ACEI , with close monitoring of his bP. might need to decrease enalapril dose - avoid BB in acute phase if has low EF , until stabilized 3- Hyponatremia : likely hypotonic in setting hypervolemia from heart failure monitor 4- HTN: now BP on lower side .cont ACEI . 5- monitor electrolytes DVT px
--- NOTE | 2016-06-24 15:41 | PN ---
Physical Exam: SUBJECTIVE: Patient seen and examined Resting in bed NAD. No acute events, no events on tele. afebrile and hemodynamically stable. BG 96 before breakfast and 118 after. feels well. states he still has poor appetite. no sob, cough, chest pain, n/v or h/a. OBJECTIVE: Vital Signs Period Temp Pulse Resp BP Sys/Arboleda Pulse Ox Last 24 Hr 97.3 F-98.2 F 84-94 18-21 91-102/49-68 94-100 GENERAL: Awake, alert, and fully oriented, in no acute distress. HEAD: Normal with no signs of trauma. EYES: Pupils equal, round and reactive to light, extraocular movements intact, sclera anicteric, conjunctiva clear. No lid lag. EARS, NOSE, THROAT: oropharynx clear without exudates. Moist mucous membranes. NECK: supple +JVD, LUNGS: bibasilar rales HEART: Regular rate and rhythm, normal S1 and S2 grade 2 systolic murmur, PMI deviated left ABDOMEN: Soft, nontender, mod distended distended, globally reduced bowel sounds , no abd edema MUSCULOSKELETAL: No CVA tenderness. UPPER EXTREMITIES: 2+ pulses, warm, well-perfused. No cyanosis. No clubbing. No peripheral edema. LOWER EXTREMITIES: not palpable pulses, cool, 1+ pitting edema, improved. NEUROLOGICAL: Cranial nerves II-XII intact. Normal speech. strength 4+/5 , 1+ reflexes upper and lower extremities, PSYCHIATRIC: Cooperative. Good eye contact. Appropriate mood and affect. SKIN: Warm, dry Laboratory Results - last 24 hr 06/22/16 06/22/16 06/22/16 17:59 20:14 20:22 Sodium Potassium Chloride Carbon Dioxide Anion Gap BUN Creatinine Creat Clearance w eGFR POC Glucometer 51.57629 32 204 Random Glucose Calcium Phosphorus Magnesium Total Bilirubin AST ALT Alkaline Phosphatase Total Protein Albumin 06/22/16 06/22/16 06/23/16 22:00 23:43 01:07 Sodium Potassium Chloride Carbon Dioxide Anion Gap BUN Creatinine Creat Clearance w eGFR POC Glucometer 29 41 45 Random Glucose Calcium Phosphorus Magnesium Total Bilirubin AST ALT Alkaline Phosphatase Total Protein Albumin 06/23/16 06/23/16 06/23/16 02:36 05:19 11:55 Sodium Potassium Chloride Carbon Dioxide Anion Gap BUN Creatinine Creat Clearance w eGFR POC Glucometer 42 45 35 Random Glucose Calcium Phosphorus Magnesium Total Bilirubin AST ALT Alkaline Phosphatase Total Protein Albumin 06/23/16 06/23/16 06/23/16 17:12 19:40 21:08 Sodium Potassium Chloride Carbon Dioxide Anion Gap BUN Creatinine Creat Clearance w eGFR POC Glucometer 102 111 89 Random Glucose Calcium Phosphorus Magnesium Total Bilirubin AST ALT Alkaline Phosphatase Total Protein Albumin 06/23/16 06/24/16 06/24/16 23:55 02:11 03:33 Sodium Potassium Chloride Carbon Dioxide Anion Gap BUN Creatinine Creat Clearance w eGFR POC Glucometer 63 86 91 Random Glucose Calcium Phosphorus Magnesium Total Bilirubin AST ALT Alkaline Phosphatase Total Protein Albumin 06/24/16 06/24/16 06/24/16 05:44 08:00 08:18 Sodium 133 L Potassium 3.8 Chloride 90 L Carbon Dioxide 33 H Anion Gap 10 BUN 15 D Creatinine 1.0 Creat Clearance w eGFR > 60 POC Glucometer 86 118 Random Glucose 107 H D Calcium 7.7 L Phosphorus 3.7 Magnesium 1.8 Total Bilirubin 0.7 AST 24 ALT 15 Alkaline Phosphatase 162 H Total Protein 6.6 Albumin 2.9 L 06/24/16 06/24/16 06/24/16 10:15 11:49 14:03 Sodium Potassium Chloride Carbon Dioxide Anion Gap BUN Creatinine Creat Clearance w eGFR POC Glucometer 149 164 220 Random Glucose Calcium Phosphorus Magnesium Total Bilirubin AST ALT Alkaline Phosphatase Total Protein Albumin Active Medications Generic Name Dose Route Start Last Admin Trade Name Freq PRN Reason Stop Dose Admin Aspirin 81 mg 06/23/16 10:00 06/24/16 11:11 Ecotrin - PO 81 mg DAILY MI Administration Atorvastatin Calcium 40 mg 06/22/16 22:00 06/23/16 21:11 Lipitor - PO 40 mg HS MI Administration Enalapril Maleate 5 mg 06/23/16 10:00 06/24/16 11:13 Vasotec - PO Not Given DAILY MI Furosemide 60 mg 06/23/16 14:00 06/24/16 14:56 Lasix Injection - IVPUSH 60 mg BID@0600,1400 MI Administration Heparin Sodium (Porcine) 5,000 unit 06/22/16 22:00 06/24/16 11:12 Heparin - SQ 5,000 unit BID MI Administration Insulin Aspart 1 vial 06/23/16 11:00 06/24/16 14:14 Novolog Vial Sliding Scale - SQ 2 units TIDAC MI Administration Protocol Nystatin 1 applic 06/24/16 14:15 Nystop Powder - TP DAILY MI ASSESSMENT/PLAN: This is an 85 yo M with PMH of IDDM, HTN, HLD, who BBEMS after being found unresponsive by . [place] his BG was 23 and increased to 66 after d50 at which time he regained consciousness with baseline mental status. Acute decompensated CHF -likely due to CAD; BNP 8222 -EKG l axis, 1 degree av block, poor rv progression, sonspecif t flattening in inferolateral leads, no ACS -volume overload improved with dieresis -tele monitoring no acute events -lipid panel well controlled -TTE p/d -lasix 60 bid IV -asa 81 d -cardio on board -will eventually need beta deepthi -will likely need nuclear stress test Hypoglycemia -due to anorexia associated with chf and liver congestion, slowed glipizide metabolism -hold metformin 100bid, glipizide 10 d and levemir 20 d -D10w @40, switch to d5w if sugars remain adequate -BGM q2H IDDM -poorly controlled, A1c =10.8 -Na restricted diet subclinical vs sick Hypothyroid -TSH 8.13 -free t4 wnl -no treatment indicated HTN -enalapril 5d HLD -atorvastatin 40 hs Suspect PAD -would check ankle brachial index FEN D10W@40 slight hyponatremia, hypochloremia due to vol overload na restricted diet Dispo tele Problem List - Problems (1) CHF (congestive heart failure) Code(s): I50.9 - HEART FAILURE, UNSPECIFIED Qualifiers: Congestive heart failure type: unspecified congestive heart failure type Congestive heart failure chronicity: acute Qualified Code(s): I50.9 - Heart failure, unspecified (2) Hypoglycemia Code(s): E16.2 - HYPOGLYCEMIA, UNSPECIFIED (3) Hypothyroid Code(s): E03.9 - HYPOTHYROIDISM, UNSPECIFIED Qualifiers: Hypothyroidism type: unspecified Qualified Code(s): E03.9 - Hypothyroidism, unspecified (4) Insulin dependent diabetes mellitus Code(s): E11.9 - TYPE 2 DIABETES MELLITUS WITHOUT COMPLICATIONS Z79.4 - CUSTODIAL (CURRENT) USE OF INSULIN (5) HLD (hyperlipidemia) Code(s): E78.5 - HYPERLIPIDEMIA, UNSPECIFIED (6) HTN (hypertension) Code(s): I10 - ESSENTIAL (PRIMARY) HYPERTENSION Visit type - Emergency Visit Emergency Visit: Yes ED Registration Date: 06/22/16 Care time: The patient presented to the Emergency Department on the above date and was hospitalized for further evaluation of their emergent condition. - New Patient This patient is new to me today: No - Critical Care Critical Care patient: No - Discharge Referral Referred to [facility] No
[2016-06-24] MEDS: NYSTATIN POWDER 100,000 UNITS/GM - 15 GM TOPICAL POWDER TP SCH (17:16)
--- NOTE | 2016-06-24 18:54 | CONSULT ---
Consult - text type - Consultation Consultation Note: Cardiology symptoms better PE: vitals stable normal cardio-pulmonary symptoms abdomen soft +3 leg edema Impression: acute systolic CHF, severely reduced EF, moderate MR and TR, mild aortic sclerosis Rec: lisinopril/hctz /.5 digoxin 0.125 mg daily aldactone 25 mg daily metoprolol 25 mg daily Aspirin optimize form CHF can be discharged if asymptomatic close outpatient cardiac follow-up
[2016-06-24] MEDS: SPIRONOLACTONE 25 MG TABLET (FP) PO SCH (22:22)
[2016-06-24] MEDS: DIGOXIN 0.125 MG TABLET (FP) PO SCH (22:22)
[2016-06-24] MEDS: ATORVASTATIN CA 40 MG TABLET (FP) PO SCH (22:22)
[2016-06-24] MEDS: METOPROLOL TARTRATE 25 MG TABLET (FP) PO SCH (22:23)
[2016-06-24] MEDS: LISINOPRIL 10 MG TABLET (FP) PO SCH (22:23)
[2016-06-25] MEDS: CIPROFLOXACIN HCL 0.3% OPHTH 2.5ML BOTTLE OU SCH ×4 (06:51→17:51)
[2016-06-25] MEDS: INSULIN SLIDING SCALE (NOVOLOG) 1 VIAL SQ SCH ×3 (06:52→16:50)
[2016-06-25] MEDS: FUROSEMIDE 40 MG/4 ML INJECTABLE VIAL IVPUSH SCH ×2 (06:52→13:31)
[2016-06-25 07:58] LABS: CALCIUM 7.4 mg/dL (8.5-10.1); MAGNESIUM 1.8 mg/dL (1.8-2.4)
[2016-06-25 07:59] LABS: COCKROFT - GAULT 71.89; CREATININE 0.8 mg/dL (0.7-1.3); PHOSPHOROUS 3.7 mg/dL (2.5-4.9)
[2016-06-25] MEDS: ENALAPRIL MALEATE 2.5 MG TABLET (FP) PO SCH (09:15)
[2016-06-25] MEDS: LISINOPRIL 10 MG TABLET (FP) PO SCH (09:15)
[2016-06-25] MEDS: METOPROLOL TARTRATE 25 MG TABLET (FP) PO SCH (09:15)
[2016-06-25] MEDS: ASPIRIN COATED 81 MG TABLET.EC PO SCH (09:16)
[2016-06-25] MEDS: SPIRONOLACTONE 25 MG TABLET (FP) PO SCH (09:16)
[2016-06-25] MEDS: DIGOXIN 0.125 MG TABLET (FP) PO SCH (09:16)
[2016-06-25] MEDS: HEPARIN NA (PORCINE) 5,000 UNITS/ML 1ML VIAL SQ SCH ×2 (09:16→22:41)
[2016-06-25] MEDS: NYSTATIN POWDER 100,000 UNITS/GM - 15 GM TOPICAL POWDER TP SCH (11:29)
[2016-06-25] MEDS: CARVEDILOL 12.5 MG TABLET (FP) PO SCH ×2 (11:30→22:41)
--- NOTE | 2016-06-25 13:30 | PN ---
Teaching Attending Note Name of Resident: eDvika Eric ATTENDING PHYSICIAN STATEMENT I saw and evaluated the patient. I reviewed the resident's note and discussed the case with the resident. I agree with the resident's findings and plan as documented. SUBJECTIVE: no fever or chills, no abd pain. no SOB , feels better . over night was started on ophthalmic Abx drops for bacterial conjunctivitis OBJECTIVE: NAD, Awake , alet HEENT: b/l periorbital edema better resolved , round equal pupils . slightly erythematous congested conjunctivae CV: RRR, no MRG. JVD b/l Lungs : bibasilar crackles, half way down Abd :soft, NT, ND , NL BS Ext: 1+ pitting edema on LE , from knee down L > R and on both feet. L medial big toe ulcer with black eschar . evidence of fungal infection among toes b/ l ASSESSMENT AND PLAN: 85 y/o gentleman with h/o IDDM , and HTN, who lives with daughter . He was lynnette here after being found unresponsive and was found to be in Heart failure and hypoglycemia 1- Hypoglycemia : likely due to decreased po intake, and decreased liver metabolism of his glipizide ( due to heart failure ) now off D10. - SSI TIA AC - cont hold other diabetic meds. - probably tomorrow can start low dose lantus ( 4-5 units ) - will not resume glipizide at dc - will not resume metformin after dc due to heart failure 2- New onset of acute decompensated systolic heart failure. - Cont lasix at 60 BID , cont to be in volume overload - started on lisinopril yesterday, but currently on enalapril. will dc lisinopril - dc digoxin due to risk of toxicity in elderly patients . - change metorpolol to coreg 12.5 BID . can increase dose if tolerated - rest of work up as outpt 3- Hyponatremia : likely hypotonic in setting hypervolemia from heart failure monitor 4- HTN: monitor in the setting of newly added medications 5- monitor electrolytes DVT px
--- NOTE | 2016-06-25 13:59 | PN ---
Physical Exam: SUBJECTIVE: Patient seen and examined Resting in bed NAD. No acute events, a few PVCs on tele. afebrile and hemodynamically stable. BG mid 100's-low 200's. feels well. appetite improved. no sob, cough, chest pain, n/v or h/a. OBJECTIVE: Vital Signs Period Temp Pulse Resp BP Sys/Arboleda Pulse Ox Last 24 Hr 97.7 F-99.2 F 70-92 18-20 98-114/59-68 94-97 GENERAL: Awake, alert, and fully oriented, in no acute distress. HEAD: Normal with no signs of trauma. EYES: Pupils equal, round and reactive to light, extraocular movements intact, sclera anicteric, conjunctiva clear. No lid lag. EARS, NOSE, THROAT: oropharynx clear without exudates. Moist mucous membranes. NECK: supple mild JVD, LUNGS: bibasilar rales unchanged from yesterday HEART: Regular rate and rhythm, normal S1 and S2 grade 2 systolic murmur, PMI deviated left ABDOMEN: Soft, nontender, mod distended distended, globally reduced bowel sounds , no abd edema MUSCULOSKELETAL: No CVA tenderness. UPPER EXTREMITIES: 2+ pulses, warm, well-perfused. No cyanosis. No clubbing. No peripheral edema. LOWER EXTREMITIES: not palpable pulses, cool, 1+ pitting edema, improved from yesterday. NEUROLOGICAL: Cranial nerves II-XII intact. Normal speech. strength 4+/5 , 1+ reflexes upper and lower extremities, PSYCHIATRIC: Cooperative. Good eye contact. Appropriate mood and affect. SKIN: Warm, dry Laboratory Results - last 24 hr 06/24/16 06/24/16 06/24/16 14:03 16:35 18:09 Sodium Potassium Chloride Carbon Dioxide Anion Gap BUN Creatinine POC Glucometer 220 140 140 Random Glucose Calcium Phosphorus Magnesium 06/24/16 06/24/16 06/25/16 20:18 22:13 00:28 Sodium Potassium Chloride Carbon Dioxide Anion Gap BUN Creatinine POC Glucometer 164 165 152 Random Glucose Calcium Phosphorus Magnesium 06/25/16 06/25/16 06/25/16 03:05 05:35 05:42 Sodium 133 L Potassium 4.1 Chloride 92 L Carbon Dioxide 32 Anion Gap 9 BUN 19 H D Creatinine 0.8 POC Glucometer 139 137 Random Glucose 140 H D Calcium 7.4 L Phosphorus 3.7 Magnesium 1.8 06/25/16 06/25/16 06/25/16 07:03 08:43 11:23 Sodium Potassium Chloride Carbon Dioxide Anion Gap BUN Creatinine POC Glucometer 135 138 176 Random Glucose Calcium Phosphorus Magnesium Active Medications Generic Name Dose Route Start Last Admin Trade Name Freq PRN Reason Stop Dose Admin Aspirin 81 mg 06/23/16 10:00 06/25/16 09:16 Ecotrin - PO 81 mg DAILY MI Administration Atorvastatin Calcium 40 mg 06/22/16 22:00 06/24/16 22:22 Lipitor - PO 40 mg HS MI Administration Carvedilol 12.5 mg 06/25/16 10:00 06/25/16 11:30 Coreg - PO 12.5 mg BID MI Administration Ciprofloxacin 2 drop 06/25/16 00:30 06/25/16 11:32 Ciloxan 0.3% Eye Drops - OU 2 drop Q6HPO MI Administration Enalapril Maleate 5 mg 06/23/16 10:00 06/25/16 09:15 Vasotec - PO 5 mg DAILY MI Administration Furosemide 60 mg 06/23/16 14:00 06/25/16 13:31 Lasix Injection - IVPUSH 60 mg BID@0600,1400 MI Administration Heparin Sodium (Porcine) 5,000 unit 06/22/16 22:00 06/25/16 09:16 Heparin - SQ 5,000 unit BID MI Administration Insulin Aspart 1 vial 06/23/16 11:00 06/25/16 11:29 Novolog Vial Sliding Scale - SQ Not Given TIDAC [facility] Protocol Nystatin 1 applic 06/24/16 14:15 06/25/16 11:29 Nystop Powder - TP 1 applic DAILY MI Administration Spironolactone 25 mg 06/24/16 19:00 06/25/16 09:16 Aldactone - PO 25 mg DAILY MI Administration ASSESSMENT/PLAN: This is an 85 yo M with PMH of IDDM, HTN, HLD, who BBEMS after being found unresponsive by . [place] his BG was 23 and increased to 66 after d50 at which time he regained consciousness with baseline mental status. Acute decompensated CHF -likely due to CAD; admission BNP 8222 and congested CXR -EKG L axis, 1 degree av block, poor rv progression, sonspecif t flattening in inferolateral leads, no ACS -volume overload improved with dieresis, however not euvolemic yet -TTE severely reduced EF -evaluated by cardiology -lasix 60 bid IV, enalapril 5 will titrate up, coreg 12.5 bid will titrate up, aldactone 25 d -asa 81 d -will likely need nuclear stress test or cath outpatient Hypoglycemia -due to anorexia associated with chf and liver congestion, slowed glipizide metabolism -resolved IDDM -poorly controlled, A1c =10.8 -on d/c will stop glipizide 10 d. For now hold metformin 100bid and levemir 20 d -BGM TIDAC -sliding scale -Diabetic Na restricted diet subclinical vs sick Hypothyroid -TSH 8.13 -free t4 wnl -no treatment indicated HTN -meds as above HLD -atorvastatin 40 hs Suspect PAD -would check ankle brachial index FEN no ivf lytes stable Diabetic na restricted diet Dispo tele Problem List - Problems (1) CHF (congestive heart failure) Code(s): I50.9 - HEART FAILURE, UNSPECIFIED Qualifiers: Congestive heart failure type: unspecified congestive heart failure type Congestive heart failure chronicity: acute Qualified Code(s): I50.9 - Heart failure, unspecified (2) Hypoglycemia Code(s): E16.2 - HYPOGLYCEMIA, UNSPECIFIED (3) Hypothyroid Code(s): E03.9 - HYPOTHYROIDISM, UNSPECIFIED Qualifiers: Hypothyroidism type: unspecified Qualified Code(s): E03.9 - Hypothyroidism, unspecified (4) Insulin dependent diabetes mellitus Code(s): E11.9 - TYPE 2 DIABETES MELLITUS WITHOUT COMPLICATIONS Z79.4 - CUSTODIAL (CURRENT) USE OF INSULIN (5) HLD (hyperlipidemia) Code(s): E78.5 - HYPERLIPIDEMIA, UNSPECIFIED (6) HTN (hypertension) Code(s): I10 - ESSENTIAL (PRIMARY) HYPERTENSION (7) Systolic and diastolic CHF w/reduced LV function, NYHA class 4 Code(s): I50.40 - UNSP COMBINED SYSTOLIC AND DIASTOLIC (CONGESTIVE) HRT FAIL Visit type - Emergency Visit Emergency Visit: Yes ED Registration Date: 06/22/16 Care time: The patient presented to the Emergency Department on the above date and was hospitalized for further evaluation of their emergent condition. - New Patient This patient is new to me today: No - Critical Care Critical Care patient: No - Discharge Referral Referred to [facility] No
[2016-06-25] MEDS: ATORVASTATIN CA 40 MG TABLET (FP) PO SCH (22:41)
[2016-06-26] MEDS: CIPROFLOXACIN HCL 0.3% OPHTH 2.5ML BOTTLE OU SCH ×4 (06:54→18:11)
[2016-06-26] MEDS: INSULIN SLIDING SCALE (NOVOLOG) 1 VIAL SQ SCH ×3 (07:01→18:10)
[2016-06-26] MEDS: FUROSEMIDE 40 MG/4 ML INJECTABLE VIAL IVPUSH SCH ×2 (07:24→13:04)
[2016-06-26] MEDS: INSULIN DETEMIR 100 UNITS/ML MDV SQ SCH (07:25)
[2016-06-26 09:10] LABS: CALCIUM 7.7 mg/dL (8.5-10.1); COCKROFT - GAULT 46.77; CREATININE 1.2 mg/dL (0.7-1.3); MAGNESIUM 1.8 mg/dL (1.8-2.4)
[2016-06-26] MEDS: CARVEDILOL 12.5 MG TABLET (FP) PO SCH ×2 (09:59→23:34)
[2016-06-26] MEDS: ASPIRIN COATED 81 MG TABLET.EC PO SCH (09:59)
[2016-06-26] MEDS: HEPARIN NA (PORCINE) 5,000 UNITS/ML 1ML VIAL SQ SCH ×2 (09:59→23:34)
[2016-06-26] MEDS: NYSTATIN POWDER 100,000 UNITS/GM - 15 GM TOPICAL POWDER TP SCH (09:59)
[2016-06-26] MEDS: SPIRONOLACTONE 25 MG TABLET (FP) PO SCH (10:00)
[2016-06-26] MEDS: ENALAPRIL MALEATE 2.5 MG TABLET (FP) PO SCH (10:00)
--- NOTE | 2016-06-26 10:00 | CONSULT ---
Consult - text type - Consultation Consultation Note: Cardiology symptoms better, frail and lethargic PE: vitals stable normal cardio-pulmonary symptoms abdomen soft +3 leg edema, better Impression: acute systolic CHF, severely reduced EF, moderate MR and TR, mild aortic sclerosis large left plural effusion, most likely due to CHF, but pulmonary evaluation helpful ARF BP low lipids within target hypothyroid, ? need for treatment Rec: optimize CHF can be discharged if asymptomatic close outpatient cardiac follow-up hold diuretics due to BP digoxin 0.125 mg daily
[2016-06-26] MEDS: DIGOXIN 0.125 MG TABLET (FP) PO SCH (11:29)
--- NOTE | 2016-06-26 12:20 | PN ---
Teaching Attending Note Name of Resident: Devika Eric ATTENDING PHYSICIAN STATEMENT I saw and evaluated the patient. I reviewed the resident's note and discussed the case with the resident. I agree with the resident's findings and plan as documented. SUBJECTIVE:currently asymptomatic. denies CP, SOB,fever, chills, cough. OBJECTIVE: Last Vital Signs Temp Pulse Resp BP Pulse Ox 97.8 F 72 22 109/67 97 06/26/16 10:00 06/26/16 11:29 06/26/16 10:00 06/26/16 10:00 06/25/16 21:00 Intake & Output 06/23/16 06/24/16 06/25/16 06/26/16 23:59 23:59 23:59 23:59 Intake Total 1462 650 520 Output Total 2800 4350 2670 100 Balance -1338 -3700 -2150 -100 Weight 164 lb 6.4 oz 164 lb 2 oz 166 lb 162 lb General NAD CV S1 S2 RRR no murmur/rub/gallop Lungs CTA B/L no wheezing/rales/rhonchi Extremities 1+pitting edema ASSESSMENT AND PLAN: 85yo M with PMH DM, HTN and dyslipidemia presented to the ER and was admitted for further evalaution of their emergent condition 1. Acute systolic CHF- newly diagnosed. appears near-euvloemic at this time. on high doses of lasix IV. will d/c a this time and convert to po tomorrow. metoprolol switched to coreg. on acei. cont asa/spiroloactone/statin/digoxin. cardio on board 2. Hypoglycema- now WNL. A1c 10.8. was on oral agent which were likely being slowly metabolized in setting of kidney failure. now on levemir 5 units. will monitor sugars. will hold oral agents on discharge 3. DEBBIE- likely induced from lasix. holding lasix iv. will convert to po in AM 4. Hyponatremia- likely due to volume overload. now resolved 5. HTN- now hypotensive. monitor closely 6. DVT ppx- hep sq 7. PT evaluation. will likely benefit from MARI. will assess today. should be medically optimized for discharge tomorrow
--- NOTE | 2016-06-26 14:22 | PN ---
Physical Exam: SUBJECTIVE: Patient seen and examined Resting in bed NAD. No acute events, a few PVCs on tele. afebrile and hemodynamically stable. Blood pressure 80's 90's systolic w/o symptoms. HR 70' s. BG mid 100's-low 200's. feels well. appetite improved. no sob, weakness, dizziness, cough, chest pain, n/v or h/a. OBJECTIVE: Vital Signs Period Temp Pulse Resp BP Sys/Arboleda Pulse Ox Last 24 Hr 97.8 F-98.7 F 70-88 20-22 80-109/40-67 97-97 GENERAL: Awake, alert, and fully oriented, in no acute distress. HEAD: Normal with no signs of trauma. EYES: Pupils equal, round and reactive to light, extraocular movements intact, sclera anicteric, conjunctiva clear. No lid lag. EARS, NOSE, THROAT: oropharynx clear without exudates. Moist mucous membranes. NECK: supple mild JVD, LUNGS: bibasilar crackles, improved HEART: Regular rate and rhythm, normal S1 and S2 grade 2 systolic murmur, PMI deviated left ABDOMEN: Soft, nontender, mod distended distended, globally reduced bowel sounds , no abd edema MUSCULOSKELETAL: No CVA tenderness. UPPER EXTREMITIES: 2+ pulses, warm, well-perfused. No cyanosis. No clubbing. No peripheral edema. LOWER EXTREMITIES: not palpable pulses, cool, 1+ pitting edema, improved from yesterday. NEUROLOGICAL: Cranial nerves II-XII intact. Normal speech. strength 4+/5 , 1+ reflexes upper and lower extremities, PSYCHIATRIC: Cooperative. Good eye contact. Appropriate mood and affect. SKIN: Warm, dry Laboratory Results - last 24 hr 06/25/16 06/25/16 06/25/16 14:13 16:42 21:52 Sodium Potassium Chloride Carbon Dioxide Anion Gap BUN Creatinine POC Glucometer 224 226 54 Random Glucose Calcium Phosphorus Magnesium 06/25/16 06/26/16 06/26/16 22:37 00:45 05:25 Sodium Potassium Chloride Carbon Dioxide Anion Gap BUN Creatinine POC Glucometer 110 107 127 Random Glucose Calcium Phosphorus Magnesium 06/26/16 06/26/16 05:40 11:09 Sodium 136 Potassium 4.5 Chloride 90 L Carbon Dioxide 32 Anion Gap 14 BUN 30 H D Creatinine 1.2 D POC Glucometer 195 Random Glucose 116 H Calcium 7.7 L Phosphorus 4.0 Magnesium 1.8 Active Medications Generic Name Dose Route Start Last Admin Trade Name Freq PRN Reason Stop Dose Admin Aspirin 81 mg 06/23/16 10:00 06/26/16 09:59 Ecotrin - PO 81 mg DAILY MI Administration Atorvastatin Calcium 40 mg 06/22/16 22:00 06/25/16 22:41 Lipitor - PO 40 mg HS MI Administration Carvedilol 12.5 mg 06/25/16 10:00 06/26/16 09:59 Coreg - PO Not Given BID [facility] Ciprofloxacin 2 drop 06/25/16 00:30 06/26/16 11:29 Ciloxan 0.3% Eye Drops - OU 2 drop Q6HPO MI Administration Digoxin 0.125 mg 06/26/16 10:15 06/26/16 11:29 Lanoxin - PO 0.125 mg DAILY MI Administration Enalapril Maleate 5 mg 06/23/16 10:00 06/26/16 10:00 Vasotec - PO Not Given DAILY MI Furosemide 40 mg 06/26/16 10:02 06/26/16 13:04 Lasix Injection - IVPUSH 40 mg BID@0600,1400 MI Administration Heparin Sodium (Porcine) 5,000 unit 06/22/16 22:00 06/26/16 09:59 Heparin - SQ 5,000 unit BID MI Administration Insulin Aspart 1 vial 06/23/16 11:00 06/26/16 11:30 Novolog Vial Sliding Scale - SQ Not Given TIDAC [facility] Protocol Insulin Detemir 5 units 06/26/16 07:00 06/26/16 07:25 Levemir Vial SQ Not Given AM [facility] Nystatin 1 applic 06/24/16 14:15 06/26/16 09:59 Nystop Powder - TP 1 applic DAILY MI Administration Spironolactone 25 mg 06/24/16 19:00 06/26/16 10:00 Aldactone - PO Not Given DAILY [facility] ASSESSMENT/PLAN: This is an 85 yo M with PMH of IDDM, HTN, HLD, who BBEMS after being found unresponsive by . [place] his BG was 23 and increased to 66 after d50 at which time he regained consciousness with baseline mental status. Acute decompensated CHF -likely due to CAD; admission BNP 8222 and congested CXR -EKG L axis, 1 degree av block, poor rv progression, sonspecif t flattening in inferolateral leads, no ACS -volume overload improved with dieresis, almost euvolemic (diuresed 6 L over past 2 days, lost 12 lb since admission) -TTE severely reduced EF -evaluated by cardiology -lasix 40 bid IV, enalapril 5 will titrate up, coreg 12.5 bid will titrate up, aldactone 25 d, digoxin 0.125 -will switch to po lasix tomorrow -asa 81 d -will likely need nuclear stress test or cath outpatient -will need [employer] wearable defibrillator on dc -PT eval Hypoglycemia -due to anorexia associated with chf and liver congestion, slowed glipizide metabolism -resolved IDDM -poorly controlled, A1c =10.8 -on d/c will stop glipizide 10 d and metformin 100bid. Hold levemir 20 d -BGM TIDAC -sliding scale -levemir 5 u AM -Diabetic Na restricted diet subclinical vs sick Hypothyroid -TSH 8.13 -free t4 wnl -no treatment indicated HTN -meds as above HLD -atorvastatin 40 hs Suspect PAD -would check ankle brachial index FEN no ivf lytes stable Diabetic na restricted diet Dispo tele Problem List - Problems (1) CHF (congestive heart failure) Code(s): I50.9 - HEART FAILURE, UNSPECIFIED Qualifiers: Congestive heart failure type: unspecified congestive heart failure type Congestive heart failure chronicity: acute Qualified Code(s): I50.9 - Heart failure, unspecified (2) Hypoglycemia Code(s): E16.2 - HYPOGLYCEMIA, UNSPECIFIED (3) Hypothyroid Code(s): E03.9 - HYPOTHYROIDISM, UNSPECIFIED Qualifiers: Hypothyroidism type: unspecified Qualified Code(s): E03.9 - Hypothyroidism, unspecified (4) Insulin dependent diabetes mellitus Code(s): E11.9 - TYPE 2 DIABETES MELLITUS WITHOUT COMPLICATIONS Z79.4 - [facility] (CURRENT) USE OF INSULIN (5) HLD (hyperlipidemia) Code(s): E78.5 - HYPERLIPIDEMIA, UNSPECIFIED (6) HTN (hypertension) Code(s): I10 - ESSENTIAL (PRIMARY) HYPERTENSION (7) Systolic and diastolic CHF w/reduced LV function, NYHA class 4 Code(s): I50.40 - UNSP COMBINED SYSTOLIC AND DIASTOLIC (CONGESTIVE) HRT FAIL Visit type - Emergency Visit Emergency Visit: Yes ED Registration Date: 06/22/16 Care time: The patient presented to the Emergency Department on the above date and was hospitalized for further evaluation of their emergent condition. - New Patient This patient is new to me today: No - Critical Care Critical Care patient: No - Discharge Referral Referred to [facility] No
[2016-06-26] MEDS ORDERED: PT OWN MED DRAWER 7, Y5N ONE (18:13)
[2016-06-26] MEDS: ATORVASTATIN CA 40 MG TABLET (FP) PO SCH (23:34)
[2016-06-27] MEDS: FUROSEMIDE 40 MG/4 ML INJECTABLE VIAL IVPUSH SCH (07:00)
[2016-06-27] MEDS: INSULIN SLIDING SCALE (NOVOLOG) 1 VIAL SQ SCH ×3 (07:00→17:35)
[2016-06-27] MEDS: CIPROFLOXACIN HCL 0.3% OPHTH 2.5ML BOTTLE OU SCH ×5 (07:01→22:31)
[2016-06-27 08:14] LABS: CALCIUM 7.5 mg/dL (8.5-10.1); COCKROFT - GAULT 43.28; CREATININE 1.3 mg/dL (0.7-1.3); MAGNESIUM 1.8 mg/dL (1.8-2.4); PHOSPHOROUS 4.6 mg/dL (2.5-4.9)
[2016-06-27] MEDS: INSULIN DETEMIR 100 UNITS/ML MDV SQ SCH (10:08)
[2016-06-27] MEDS: NYSTATIN POWDER 100,000 UNITS/GM - 15 GM TOPICAL POWDER TP SCH (10:09)
[2016-06-27] MEDS: ASPIRIN COATED 81 MG TABLET.EC PO SCH (10:09)
[2016-06-27] MEDS: DIGOXIN 0.125 MG TABLET (FP) PO SCH (10:09)
[2016-06-27] MEDS: CARVEDILOL 12.5 MG TABLET (FP) PO SCH ×2 (10:09→22:26)
[2016-06-27] MEDS: HEPARIN NA (PORCINE) 5,000 UNITS/ML 1ML VIAL SQ SCH ×2 (10:09→22:26)
[2016-06-27] MEDS: ENALAPRIL MALEATE 2.5 MG TABLET (FP) PO SCH (10:09)
[2016-06-27] MEDS: SPIRONOLACTONE 25 MG TABLET (FP) PO SCH (10:09)
[2016-06-27] MEDS ORDERED: MAGNESIUM SULF 50% (8.12 MEQ/2 ML-1 GM VIAL) IVPB ONE (11:45)
--- NOTE | 2016-06-27 14:41 | PN ---
Addendum entered and electronically signed by Devika Eric RES 06/27/16 14: 52: p: Endocrinology consult placed Original Note: Physical Exam: SUBJECTIVE: Patient seen and examined Resting in bed NAD. No acute events, a run of 10 v tach and PVCs on tele. afebrile and hemodynamically stable. Blood pressure 100/61 HR 67. BG mid 100's- low 200's. feels well. appetite improved. Feels stronger. Ambulated 85ft with pt using walker, wabbling gait noted. no sob, weakness, dizziness, cough, chest pain, n/v or h/a. OBJECTIVE: Vital Signs Period Temp Pulse Resp BP Sys/Arboleda Pulse Ox Last 24 Hr 97.8 F-98.3 F 67-88 18-22 95-122/54-75 94-97 GENERAL: Awake, alert, and fully oriented, in no acute distress. HEAD: Normal with no signs of trauma. EYES: Pupils equal, round and reactive to light, extraocular movements intact, sclera anicteric, conjunctiva clear. No lid lag. EARS, NOSE, THROAT: oropharynx clear without exudates. Moist mucous membranes. NECK: supple mild JVD, LUNGS: bibasilar crackles, improved HEART: Regular rate and rhythm, normal S1 and S2 grade 2 systolic murmur, PMI deviated left ABDOMEN: Soft, nontender, mod distended distended, globally reduced bowel sounds , no abd edema MUSCULOSKELETAL: No CVA tenderness. UPPER EXTREMITIES: 2+ pulses, warm, well-perfused. No cyanosis. No clubbing. No peripheral edema. LOWER EXTREMITIES: not palpable pulses, cool, 1+ pitting edema, improved from yesterday. NEUROLOGICAL: Cranial nerves II-XII intact. Normal speech. strength 4+/5 , 1+ reflexes upper and lower extremities, PSYCHIATRIC: Cooperative. Good eye contact. Appropriate mood and affect. SKIN: Warm, dry Laboratory Results - last 24 hr 06/26/16 06/26/16 06/27/16 15:40 23:18 05:35 Sodium 132 L Potassium 4.4 Chloride 87 L Carbon Dioxide 31 Anion Gap 14 BUN 38 H D Creatinine 1.3 POC Glucometer 224 143 Random Glucose 150 H D Calcium 7.5 L Phosphorus 4.6 Magnesium 1.8 06/27/16 06/27/16 06/27/16 06:09 11:25 14:12 Sodium Potassium Chloride Carbon Dioxide Anion Gap BUN Creatinine POC Glucometer 149 217 123 Random Glucose Calcium Phosphorus Magnesium Active Medications Generic Name Dose Route Start Last Admin Trade Name Carla PRN Reason Stop Dose Admin Aspirin 81 mg 06/23/16 10:00 06/27/16 10:09 Ecotrin - PO 81 mg DAILY MI Administration Atorvastatin Calcium 40 mg 06/22/16 22:00 06/26/16 23:34 Lipitor - PO 40 mg HS MI Administration Carvedilol 12.5 mg 06/25/16 10:00 06/27/16 10:09 Coreg - PO Not Given BID MI Ciprofloxacin 2 drop 06/25/16 00:30 06/27/16 11:30 Ciloxan 0.3% Eye Drops - OU 2 drop Q6HPO MI Administration Enalapril Maleate 5 mg 06/23/16 10:00 06/27/16 10:09 Vasotec - PO Not Given DAILY MI Furosemide 40 mg 06/28/16 10:00 Lasix - PO DAILY MI Heparin Sodium (Porcine) 5,000 unit 06/22/16 22:00 06/27/16 10:09 Heparin - SQ 5,000 unit BID MI Administration Insulin Aspart 1 vial 06/23/16 11:00 06/27/16 11:30 Novolog Vial Sliding Scale - SQ 2 units TIDAC MI Administration Protocol Insulin Detemir 5 units 06/26/16 07:00 06/27/16 10:08 Levemir Vial SQ 5 units AM MI Administration Nystatin 1 applic 06/24/16 14:15 06/27/16 10:09 Nystop Powder - TP 1 applic DAILY MI Administration Spironolactone 25 mg 06/24/16 19:00 06/27/16 10:09 Aldactone - PO 25 mg DAILY MI Administration ASSESSMENT/PLAN: This is an 85 yo M with PMH of IDDM, HTN, HLD, who BBEMS after being found unresponsive by . [place] his BG was 23 and increased to 66 after d50 at which time he regained consciousness with baseline mental status. Acute decompensated CHF -likely due to CAD; admission BNP 8222 and congested CXR -EKG L axis, 1 degree av block, poor rv progression, sonspecif t flattening in inferolateral leads, no ACS -TTE severely reduced EF -evaluated by cardiology -euvolemic. Stop IV lasix. Start lasix 40 po daily tomorrow -enalapril 5 will titrate up, coreg 12.5 bid will titrate up, aldactone 25 d -stop digoxin, not indicated; patient not tachycardic and BP wnl -asa 81 d -nuclear stress test tomorrow -EP eval for defibrillator -cont PT Hypoglycemia -due to anorexia associated with chf and liver congestion, slowed glipizide metabolism -resolved IDDM -poorly controlled, A1c =10.8 -on d/c will stop glipizide 10 d and metformin 100bid. Hold levemir 20 d -BGM TIDAC -sliding scale requires 2 u /day -levemir 5 u AM -Diabetic Na restricted diet subclinical vs sick Hypothyroid -TSH 8.13 -free t4 wnl -no treatment indicated HTN -meds as above HLD -atorvastatin 40 hs Suspect PAD -would check ankle brachial index FEN no ivf lytes stable Diabetic na restricted diet Dispo tele Problem List - Problems (1) CHF (congestive heart failure) Code(s): I50.9 - HEART FAILURE, UNSPECIFIED Qualifiers: Congestive heart failure type: unspecified congestive heart failure type Congestive heart failure chronicity: acute Qualified Code(s): I50.9 - Heart failure, unspecified (2) Hypoglycemia Code(s): E16.2 - HYPOGLYCEMIA, UNSPECIFIED (3) Hypothyroid Code(s): E03.9 - HYPOTHYROIDISM, UNSPECIFIED Qualifiers: Hypothyroidism type: unspecified Qualified Code(s): E03.9 - Hypothyroidism, unspecified (4) Insulin dependent diabetes mellitus Code(s): E11.9 - TYPE 2 DIABETES MELLITUS WITHOUT COMPLICATIONS Z79.4 - ASSISTED (CURRENT) USE OF INSULIN (5) HLD (hyperlipidemia) Code(s): E78.5 - HYPERLIPIDEMIA, UNSPECIFIED (6) HTN (hypertension) Code(s): I10 - ESSENTIAL (PRIMARY) HYPERTENSION (7) Systolic and diastolic CHF w/reduced LV function, NYHA class 4 Code(s): I50.40 - UNSP COMBINED SYSTOLIC AND DIASTOLIC (CONGESTIVE) HRT FAIL Visit type - Emergency Visit Emergency Visit: Yes ED Registration Date: 06/22/16 Care time: The patient presented to the Emergency Department on the above date and was hospitalized for further evaluation of their emergent condition. - New Patient This patient is new to me today: No - Critical Care Critical Care patient: No - Discharge Referral Referred to [facility] No
--- NOTE | 2016-06-27 17:14 | PN ---
Teaching Attending Note Name of Resident: Devika Eric ATTENDING PHYSICIAN STATEMENT I saw and evaluated the patient. I reviewed the resident's note and discussed the case with the resident. I agree with the resident's findings and plan as documented. Vital Signs Temperature 98 F 06/27/16 14:00 Pulse Rate 85 06/27/16 14:00 Respiratory Rate 20 06/27/16 14:00 Blood Pressure 122/75 06/27/16 14:00 O2 Sat by Pulse Oximetry (%) 96 06/27/16 10:21 CBCD WBC 5.6 K/mm3 (4.0-10.0) 06/23/16 06:30 RBC 4.03 M/mm3 (4.00-5.60) 06/23/16 06:30 Hgb 11.9 GM/dL (11.7-16.9) 06/23/16 06:30 Hct 36.1 % (35.4-49) 06/23/16 06:30 MCV 89.6 fl (80-96) 06/23/16 06:30 MCHC 33.1 g/dl (32.0-35.9) 06/23/16 06:30 RDW 14.7 % (11.9-15.9) 06/23/16 06:30 Plt Count 140 K/MM3 (134-434) 06/23/16 06:30 MPV 9.3 fl (7.5-11.1) 06/23/16 06:30 CMP Sodium 132 mmol/L (136-145) L 06/27/16 05:35 Potassium 4.4 mmol/L (3.5-5.1) 06/27/16 05:35 Chloride 87 mmol/L (98-107) L 06/27/16 05:35 Carbon Dioxide 31 mmol/L (21-32) 06/27/16 05:35 Anion Gap 14 (8-16) 06/27/16 05:35 BUN 38 mg/dL (7-18) H D 06/27/16 05:35 Creatinine 1.3 mg/dL (0.7-1.3) 06/27/16 05:35 Creat Clearance w eGFR > 60 (>60) 06/24/16 08:18 Random Glucose 150 mg/dL (74-106) H D 06/27/16 05:35 Calcium 7.5 mg/dL (8.5-10.1) L 06/27/16 05:35 Total Bilirubin 0.7 mg/dL (0.2-1.0) 06/24/16 08:18 AST 24 U/L (15-37) 06/24/16 08:18 ALT 15 U/L (12-78) 06/24/16 08:18 Alkaline Phosphatase 162 U/L (45-117) H 06/24/16 08:18 Total Protein 6.6 g/dl (6.4-8.2) 06/24/16 08:18 Albumin 2.9 g/dl (3.4-5.0) L 06/24/16 08:18 CARDIAC ENZYMES Creatine Kinase 238 IU/L (39-308) 06/22/16 15:19 Troponin I 0.02 ng/ml (0.00-0.05) 06/22/16 19:30 Current Medications Generic Name Dose Route Start Last Admin Trade Name Freq PRN Reason Stop Dose Admin Aspirin 81 mg 06/23/16 10:00 06/27/16 10:09 Ecotrin - PO 81 mg DAILY MI Administration Atorvastatin Calcium 40 mg 06/22/16 22:00 06/26/16 23:34 Lipitor - PO 40 mg HS MI Administration Carvedilol 12.5 mg 06/25/16 10:00 06/27/16 10:09 Coreg - PO Not Given BID [facility] Ciprofloxacin 2 drop 06/25/16 00:30 06/27/16 11:30 Ciloxan 0.3% Eye Drops - OU 2 drop Q6HPO MI Administration Enalapril Maleate 5 mg 06/23/16 10:00 06/27/16 10:09 Vasotec - PO Not Given DAILY MI Furosemide 40 mg 06/28/16 10:00 Lasix - PO DAILY [facility] Heparin Sodium (Porcine) 5,000 unit 06/22/16 22:00 06/27/16 10:09 Heparin - SQ 5,000 unit BID MI Administration Insulin Aspart 1 vial 06/23/16 11:00 06/27/16 11:30 Novolog Vial Sliding Scale - SQ 2 units TIDAC [facility] Administration Protocol Insulin Detemir 5 units 06/26/16 07:00 06/27/16 10:08 Levemir Vial SQ 5 units AM MI Administration Nystatin 1 applic 06/24/16 14:15 06/27/16 10:09 Nystop Powder - TP 1 applic DAILY MI Administration Spironolactone 25 mg 06/24/16 19:00 06/27/16 10:09 Aldactone - PO 25 mg DAILY MI Administration Home Medications Medication Instructions Recorded Enalapril Maleate 5 mg PO DAILY 06/22/16 Insulin Detemir [Levemir Flextouch] 20 unit SQ DAILY 06/22/16 Simvastatin 40 mg PO HS 06/22/16 Laboratory Tests 06/22/16 06/23/16 06/24/16 15:19 06:30 08:18 Creatinine 1.0 0.9 1.0 06/25/16 06/26/16 06/27/16 05:35 05:40 05:35 Creatinine 0.8 1.2 D 1.3 General NAD CV S1 S2 RRR no murmur/rub/gallop Lungs CTA B/L no wheezing/rales/rhonchi Extremities 1+pitting edema ECHO: LV systolic function severely reduced, severe global hypokinesis ASSESSMENT AND PLAN: 85yo M with PMH DM, HTN and dyslipidemia presented to the ER for Acute hypoglycemia and was admitted for further evaluation of their emergent condition # VTs in Telemetry unit will maximize the mag level to 2.0 , ernie get ( [employer]) to evaluate the patient # Severe global hypokinesis with severely reduced LV systolic function ; will order Persantine thalium stress test for am # Acute systolic CHF- newly diagnosed.on IV lasix , will switch to po lasix now , metoprolol switched to coreg. on acei. cont asa/spiroloactone/statin will discontinue digoxin. # Acute Hypoglycema improved with A1c 10.8. will discontinue po meds. will place her on levemir 5 units for consult. # DEBBIE will switch to po lasix today # Acute hyponatremia will monitor DVT ppx- hep sq PT evaluation
[2016-06-27] MEDS ORDERED: SODIUM CHLORIDE 500 ML IV STA (17:43)
--- NOTE | 2016-06-27 18:04 | CONSULT ---
Consult Consult Specialty:: Endocrinology Referred by:: Dr ortiz Reason for Consultation:: Hypoglycemia - History of Present Illness Chief Complaint: Hypoglycemia History of Present Illness: This is an 85 year old man with history of DM for about 10 years, on Insulin for around 3 and hypertension who presents to the ED via EMS after patient found unresponsive by around 3 p.m. As per EMS patient was found to have BGM of 23 which went up to 66 BGM after D50. Patient was also tachycardic at 120, diaphoretic, unresponsive and BP was fine. after glucose pt was feeling improved and seem at baseline. Patient was A&OX3 in the ED.. As per family, they ran out of blood sugar test strips, so they could not monitor his sugar for a couple of days. Patient reported dry cough and SOB for 1 week and swelling of legs for 3 days. He had not eaten much the day of the event. No polyuria, polydipsia,Has nocturia, doesn't sleep much at night. Has not had eye exam for many years. Denies any visual symptoms or paresthesia. No previous hospitalization for hypo or hyperglycemia. - History Source History Provided By: Patient, Family Member, Medical Record Limitations to Obtaining History: Poor Historian - Past Medical History Endocrine: Yes: Diabetes Mellitus - Alcohol/Substance Use Hx Alcohol Use: No - Smoking History Smoking history: Never smoked Home Medications - Allergies Allergies/Adverse Reactions: Allergies Allergy/AdvReac Type Severity Reaction Status Date / Time No Known Allergies Allergy Verified 06/22/16 15:18 - Home Medications Home Medications: Ambulatory Orders Enalapril Maleate 5 mg PO DAILY 06/22/16 Insulin Detemir [Levemir Flextouch] 20 unit SQ DAILY 06/22/16 Simvastatin 40 mg PO HS 06/22/16 Family Disease History - Family Disease History Other Family History: No family h/o DM Review of Systems - Review of Systems Constitutional: reports: No Symptoms Eyes: reports: No Symptoms HENT: reports: No Symptoms Neck: reports: No Symptoms Cardiovascular: reports: No Symptoms Gastrointestinal: reports: No Symptoms Genitourinary: reports: Other (Nocturia) Musculoskeletal: reports: No Symptoms Neurological: reports: No Symptoms Endocrine: reports: No Symptoms Physical Exam Vital Signs: Vital Signs Temperature 98 F 06/27/16 14:00 Pulse Rate 85 06/27/16 14:00 Respiratory Rate 20 06/27/16 14:00 Blood Pressure 122/75 06/27/16 14:00 O2 Sat by Pulse Oximetry (%) 96 06/27/16 10:21 Constitutional: Yes: No Distress, Calm Eyes: Yes: Conjunctiva Clear, EOM Intact HENT: Yes: Atraumatic, Normocephalic Neck: Yes: Supple, Trachea Midline Cardiovascular: Yes: Regular Rate and Rhythm Respiratory: Yes: Regular, CTA Bilaterally Gastrointestinal: Yes: Normal Bowel Sounds, Soft Musculoskeletal: Yes: WNL Extremities: Yes: WNL Edema: Yes Neurological: Yes: Alert Labs: CBC, BMP 06/23/16 06:30 06/27/16 05:35 Assessment/Plan AP; Hypoglycemia T2DM HTN CHF HLD Abnormal TFT Hypoglycemia sec to prolonged action of Glipizide and poor food intake. BGM QACHS Agree with Levemnicky, and Novolog SS No Glipizide now No Metformin b/o decompensated CHF Repeat TSH Will F/U
[2016-06-27] MEDS: ATORVASTATIN CA 40 MG TABLET (FP) PO SCH (22:27)
--- NOTE | 2016-06-27 22:46 | HOSP ---
Subjective - Review of Symptoms Events since last encounter: Called by nursing for swelling, erythema & moderate tenderness to palpation/ movement at left elbow. IV was previously placed at site but removed earlier. Patient/family unsure how long ago erythema presented. On physical exam, there is a [id number] area on erythema, increased warmth, induration, swelling & tenderness at anterior left elbow (site of former IV placement). Patient describes the pain as 5/10. There is very limited grayish discharge from the center of the erythematous area. Ordered ultrasound of area to assess for abscess formation. Wound culture also ordered of drainage. CBC to look for changes in WBC count (last taken 06/23). Will f/u with results. Started patient on Cefazolin q8h for cellulitis w/ possible underlying abscess. ID consult placed as well. Update 12:40AM. Ultrasound shows 2.8 x 0.5cm abscess formation. Started Vancomycin for MRSA coverage. Physical Examination Vital Signs: Vital Signs Temperature 97.8 F 06/27/16 18:00 Pulse Rate 71 06/27/16 18:00 Respiratory Rate 20 06/27/16 18:00 Blood Pressure 94/56 06/27/16 18:00 O2 Sat by Pulse Oximetry (%) 96 06/27/16 10:21 Labs: CBC, BMP 06/23/16 06:30 06/27/16 05:35 Visit type - Emergency Visit Emergency Visit: Yes ED Registration Date: 06/22/16 Care time: The patient presented to the Emergency Department on the above date and was hospitalized for further evaluation of their emergent condition. - New Patient This patient is new to me today: No - Critical Care Critical Care patient: No
[2016-06-28] MEDS: CEFAZOLIN (PRE-DOCKED) 50 ML IVPB SCH ×2 (00:13→10:29)
[2016-06-28] MEDS: CIPROFLOXACIN HCL 0.3% OPHTH 2.5ML BOTTLE OU SCH ×5 (00:14→23:20)
[2016-06-28] MEDS: ACETAMINOPHEN 325 MG TABLET (FP) PO PRN (00:15)
[2016-06-28] MEDS ORDERED: VANCOMYCIN 1 GRAM (PRE-DOCKED) 1,000 MG/250 ML BAG IVPB SCH (00:45)
[2016-06-28 00:52] LABS: BASOPHIL 0.2 % (0-2.0); EOSINOPHIL 0.4 % (0-4.5); MCH 29.2 pg (25.7-33.7); MEAN CELL VOLUME 88.4 fl (80-96); MEAN PLT VOLUME 9.8 fl (7.5-11.1); NEUTROPHILS 79.4 % (42.8-82.8); PLATELET COUNT 143 K/MM3 (134-434); RDW 14.9 % (11.9-15.9); WHITE BLOOD COUNT 8.2 K/mm3 (4.0-10.0)
[2016-06-28] MEDS ORDERED: VANCOMYCIN 1 GRAM (PRE-DOCKED) 1,000 MG/250 ML BAG IVPB ONE (01:15)
[2016-06-28] MEDS: INSULIN DETEMIR 100 UNITS/ML MDV SQ SCH (06:10)
[2016-06-28] MEDS: INSULIN SLIDING SCALE (NOVOLOG) 1 VIAL SQ SCH ×3 (06:11→17:12)
[2016-06-28 08:26] LABS: CALCIUM 7.2 mg/dL (8.5-10.1); MAGNESIUM 2.1 mg/dL (1.8-2.4)
[2016-06-28 08:41] LABS: COCKROFT - GAULT 46.89; CREATININE 1.2 mg/dL (0.7-1.3); PHOSPHOROUS 4.3 mg/dL (2.5-4.9); THYROID STIMULATING HORMONE 5.33 uIU/ml (0.358-3.74)
--- NOTE | 2016-06-28 09:12 | PN ---
Progress Note (short form) - Note Progress Note: Pain and redness at left antecubital fossa Blood sugar stable Vital Signs Period Temp Pulse Resp BP Sys/Arboleda Pulse Ox Last 24 Hr 97.8 F-98.4 F 60-88 20-22 80-122/40-75 95-97 PE: AOx3 HEENT: PERRL, EOMI Neck: Supple, No JVD Lungs: CTA CVS: S1S2 Abd: Benign EXt: + edema Neuro: No focal deficit CMP Sodium 132 mmol/L (136-145) L 06/28/16 05:38 Potassium 3.8 mmol/L (3.5-5.1) 06/28/16 05:38 Chloride 88 mmol/L (98-107) L 06/28/16 05:38 Carbon Dioxide 34 mmol/L (21-32) H 06/28/16 05:38 Anion Gap 10 (8-16) 06/28/16 05:38 BUN 41 mg/dL (7-18) H 06/28/16 05:38 Creatinine 1.2 mg/dL (0.7-1.3) 06/28/16 05:38 Creat Clearance w eGFR > 60 (>60) 06/24/16 08:18 POC Glucometer 92 UNITS (()) 06/28/16 11:38 Random Glucose 103 mg/dL (74-106) D 06/28/16 05:38 Hemoglobin A1c % 10.8 % (4.8-6.0) H 06/23/16 06:30 Free Insulin 4.7 uU/mL (.) 06/23/16 06:30 Total Insulin 4.7 uU/mL (.) 06/23/16 06:30 Calcium 7.2 mg/dL (8.5-10.1) L 06/28/16 05:38 Phosphorus 4.3 mg/dL (2.5-4.9) 06/28/16 05:38 Magnesium 2.1 mg/dL (1.8-2.4) 06/28/16 05:38 Total Bilirubin 0.7 mg/dL (0.2-1.0) 06/24/16 08:18 AST 24 U/L (15-37) 06/24/16 08:18 ALT 15 U/L (12-78) 06/24/16 08:18 Alkaline Phosphatase 162 U/L (45-117) H 06/24/16 08:18 Creatine Kinase 238 IU/L (39-308) 06/22/16 15:19 Creatine Kinase Index 2.4 % (0.0-5.0) 06/22/16 15:19 CK-MB (CK-2) 5.710 ng/ml (0.5-3.6) H 06/22/16 15:19 CK-MB (CK-2) Rel Index Cancelled 06/22/16 15:19 Troponin I 0.02 ng/ml (0.00-0.05) 06/22/16 19:30 B-Natriuretic Peptide 8222.24 pg/ml (5-450) H 06/22/16 16:21 Total Protein 6.6 g/dl (6.4-8.2) 06/24/16 08:18 Albumin 2.9 g/dl (3.4-5.0) L 06/24/16 08:18 Triglycerides 51 mg/dL (35-160) 06/23/16 06:30 Cholesterol 108 mg/dL (50-200) 06/23/16 06:30 Total LDL Cholesterol 27 mg/dl 06/23/16 06:30 HDL Cholesterol 71 mg/dL (40-60) H 06/23/16 06:30 TSH 5.33 uIU/ml (0.358-3.74) H D 06/28/16 05:38 Free T4 1.14 ng/dl (0.76-1.16) 06/23/16 06:30 Current Medications Generic Name Dose Route Start Last Admin Trade Name Jonaq PRN Reason Stop Dose Admin Acetaminophen 650 mg 06/27/16 22:41 06/28/16 00:15 Tylenol - PO 650 mg Q6H PRN Administration FEVER OR PAIN Aspirin 81 mg 06/23/16 10:00 06/28/16 12:10 Ecotrin - PO 81 mg DAILY MI Administration Atorvastatin Calcium 40 mg 06/22/16 22:00 06/27/16 22:27 Lipitor - PO 40 mg HS MI Administration Carvedilol 12.5 mg 06/25/16 10:00 06/28/16 12:10 Coreg - PO Not Given BID MI Cefepime HCl 1 gm 06/28/16 13:30 06/28/16 13:41 Maxipime 1gm Ivpb Pre-Docked IVPB 1 gm BID MI Administration Protocol Ciprofloxacin 2 drop 06/25/16 00:30 06/28/16 12:11 Ciloxan 0.3% Eye Drops - OU 2 drop Q6HPO MI Administration Enalapril Maleate 5 mg 06/23/16 10:00 06/28/16 12:14 Vasotec - PO Not Given DAILY MI Furosemide 40 mg 06/28/16 10:10 06/28/16 13:40 Lasix Injection - IVPUSH 40 mg BID@0600,1400 MI Administration Heparin Sodium (Porcine) 5,000 unit 06/22/16 22:00 06/28/16 12:10 Heparin - SQ 5,000 unit BID MI Administration Vancomycin HCl 250 mls @ 200 mls/hr 06/28/16 13:30 06/28/16 13:40 Vancomycin (Pre-Docked) IVPB 200 mls/hr Q24H MI Administration Insulin Aspart 1 vial 06/23/16 11:00 06/28/16 11:46 Novolog Vial Sliding Scale - SQ Not Given TIDAC [facility] Protocol Insulin Detemir 5 units 06/26/16 07:00 06/28/16 06:10 Levemir Vial SQ Not Given AM [facility] Nystatin 1 applic 06/24/16 14:15 06/28/16 10:29 Nystop Powder - TP 1 applic DAILY MI Administration Spironolactone 25 mg 06/24/16 19:00 06/28/16 12:09 Aldactone - PO Not Given DAILY [facility] AP: Left antecubital fossa cellulitis ?abscess Hypoglycemia T2DM HTN CHF HLD Abnormal TFT IV abx as per ID, ?I and D Hypoglycemia sec to prolonged action of Glipizide and poor food intake. Blood sugar stable on current Insulin regimen BGM QACHS Levemir 5 units daily in a.m. and Novolog SS Change Insulin dose as necessary No Glipizide now No Metformin b/o decompensated CHF Repeat TSH 5.33, no need for LT4 replacement at this point Most patient with abnormal TFT during hospitalization have normal levels after discharge Repeat TFT as outpt. Will F/U
[2016-06-28] MEDS ORDERED: DIPYRIDAMOLE STRESS TEST 42 MG in DEXTROSE 5%-WATER - 33.6 ML IVPB ONE ×2 (09:15→10:00)
[2016-06-28] MEDS ORDERED: FUROSEMIDE 40 MG TABLET (FP) PO SCH (10:00)
[2016-06-28] MEDS ORDERED: DEXTROSE 5% IVPB ONE (10:00)
[2016-06-28] MEDS ORDERED: DIPYRIDAMOLE STRESS TEST IVPB ONE (10:00)
[2016-06-28] MEDS ORDERED: WATER IVPB ONE (10:00)
[2016-06-28] MEDS: NYSTATIN POWDER 100,000 UNITS/GM - 15 GM TOPICAL POWDER TP SCH (10:29)
[2016-06-28] MEDS ORDERED: POTASSIUM CHLORIDE TABS 20 MEQ TABLET.ER (FP) PO ONE (10:45)
[2016-06-28] MEDS: SPIRONOLACTONE 25 MG TABLET (FP) PO SCH (12:09)
[2016-06-28] MEDS: HEPARIN NA (PORCINE) 5,000 UNITS/ML 1ML VIAL SQ SCH ×2 (12:10→21:40)
[2016-06-28] MEDS: CARVEDILOL 12.5 MG TABLET (FP) PO SCH ×2 (12:10→21:40)
[2016-06-28] MEDS: ASPIRIN COATED 81 MG TABLET.EC PO SCH (12:10)
[2016-06-28] MEDS: FUROSEMIDE 40 MG/4 ML INJECTABLE VIAL IVPUSH SCH ×2 (12:12→13:40)
[2016-06-28] MEDS: ENALAPRIL MALEATE 2.5 MG TABLET (FP) PO SCH (12:14)
--- NOTE | 2016-06-28 12:47 | PN ---
Progress Note (short form) - Note Progress Note: ID Consult dictated Catheter-related phlebitis/ soft tissue abscess Await c/s Surgical evaluation for I&D Empiric vancomycin/ cefepime
--- NOTE | 2016-06-28 13:15 | PN ---
Physical Exam: SUBJECTIVE: Patient seen and examined Resting in bed NAD. No acute events, no more v tach, still PVCs on tele. afebrile and hemodynamically stable. Blood pressure 92/41 HR 67. BG mid 100's- low 200's. feels well. good appetite. no sob, weakness, dizziness, cough, chest pain, n/v or h/a. OBJECTIVE: Vital Signs Period Temp Pulse Resp BP Sys/Arboleda Pulse Ox Last 24 Hr 97.8 F-98.4 F 60-85 20-20 80-122/40-75 95-97 GENERAL: Awake, alert, and fully oriented, in no acute distress. HEAD: Normal with no signs of trauma. EYES: Pupils equal, round and reactive to light, extraocular movements intact, sclera anicteric, conjunctiva clear. No lid lag. EARS, NOSE, THROAT: oropharynx clear without exudates. Moist mucous membranes. NECK: supple mild JVD, LUNGS: bibasilar crackles HEART: Regular rate and rhythm, normal S1 and S2 grade 2 systolic murmur, PMI deviated left ABDOMEN: Soft, nontender, mod distended distended, globally reduced bowel sounds , no abd edema MUSCULOSKELETAL: No CVA tenderness. UPPER EXTREMITIES: 2+ pulses, warm, well-perfused. No cyanosis. No clubbing. No peripheral edema. LOWER EXTREMITIES: not palpable pulses, cool, 1+ pitting edema, improved from yesterday. NEUROLOGICAL: Cranial nerves II-XII intact. Normal speech. strength 4+/5 , 1+ reflexes upper and lower extremities, PSYCHIATRIC: Cooperative. Good eye contact. Appropriate mood and affect. SKIN: Warm, dry Laboratory Results - last 24 hr 06/23/16 06/27/16 06/27/16 06:30 14:12 15:46 WBC RBC Hgb Hct MCV MCHC RDW Plt Count MPV Neutrophils % Lymphocytes % Monocytes % Eosinophils % Basophils % Sodium Potassium Chloride Carbon Dioxide Anion Gap BUN Creatinine POC Glucometer 123 104 Random Glucose Free Insulin 4.7 Total Insulin 4.7 Calcium Phosphorus Magnesium TSH 06/27/16 06/28/16 06/28/16 22:10 00:05 05:36 WBC 8.2 D RBC 3.73 L Hgb 10.9 L Hct 33.0 L MCV 88.4 MCHC 33.0 RDW 14.9 Plt Count 143 MPV 9.8 Neutrophils % 79.4 Lymphocytes % 10.2 D Monocytes % 9.8 Eosinophils % 0.4 Basophils % 0.2 Sodium Potassium Chloride Carbon Dioxide Anion Gap BUN Creatinine POC Glucometer 101 111 Random Glucose Free Insulin Total Insulin Calcium Phosphorus Magnesium TSH 06/28/16 06/28/16 05:38 11:38 WBC RBC Hgb Hct MCV MCHC RDW Plt Count MPV Neutrophils % Lymphocytes % Monocytes % Eosinophils % Basophils % Sodium 132 L Potassium 3.8 Chloride 88 L Carbon Dioxide 34 H Anion Gap 10 BUN 41 H Creatinine 1.2 POC Glucometer 92 Random Glucose 103 D Free Insulin Total Insulin Calcium 7.2 L Phosphorus 4.3 Magnesium 2.1 TSH 5.33 H D Active Medications Generic Name Dose Route Start Last Admin Trade Name Freq PRN Reason Stop Dose Admin Acetaminophen 650 mg 06/27/16 22:41 06/28/16 00:15 Tylenol - PO 650 mg Q6H PRN Administration FEVER OR PAIN Aspirin 81 mg 06/23/16 10:00 06/28/16 12:10 Ecotrin - PO 81 mg DAILY [place] Administration Atorvastatin Calcium 40 mg 06/22/16 22:00 06/27/16 22:27 Lipitor - PO 40 mg HS [facility] Administration Carvedilol 12.5 mg 06/25/16 10:00 06/28/16 12:10 Coreg - PO Not Given BID [facility] Cefepime HCl 1 gm 06/28/16 13:00 Maxipime (Restricted To Id) - IVPB BID [facility] Protocol Ciprofloxacin 2 drop 06/25/16 00:30 06/28/16 12:11 Ciloxan 0.3% Eye Drops - OU 2 drop Q6HPO [facility] Administration Enalapril Maleate 5 mg 06/23/16 10:00 06/28/16 12:14 Vasotec - PO Not Given DAILY [facility] Furosemide 40 mg 06/28/16 10:10 06/28/16 12:12 Lasix Injection - IVPUSH Not Given BID@0600,1400 [facility] Heparin Sodium (Porcine) 5,000 unit 06/22/16 22:00 06/28/16 12:10 Heparin - SQ 5,000 unit BID [facility] Administration Vancomycin HCl 1,000 mg/ 250 mls @ 200 mls/hr 06/28/16 13:00 Dextrose IVPB Q24H [facility] Insulin Aspart 1 vial 06/23/16 11:00 06/28/16 11:46 Novolog Vial Sliding Scale - SQ Not Given TIDAC [facility] Protocol Insulin Detemir 5 units 06/26/16 07:00 06/28/16 06:10 Levemir Vial SQ Not Given AM [facility] Nystatin 1 applic 06/24/16 14:15 06/28/16 10:29 Nystop Powder - TP 1 applic DAILY [place] Administration Spironolactone 25 mg 06/24/16 19:00 06/28/16 12:09 Aldactone - PO Not Given DAILY [place] ASSESSMENT/PLAN: This is an 85 yo M with PMH of IDDM, HTN, HLD, who BBEMS after being found unresponsive by . [place] ambulance his BG was 23 and increased to 66 after d50 at which time he regained consciousness with baseline mental status. Acute decompensated CHF -likely due to CAD; admission BNP 8222 and congested CXR -EKG L axis, 1 degree av block, poor rv progression, sonspecif t flattening in inferolateral leads, no ACS -TTE severely reduced EF, global LV hypokinesis -evaluated by cardiology -evaluated by EP -requires further diuresis. IV lasix 40 bid. -enalapril 5 will titrate up, coreg 12.5 bid will titrate up, aldactone 25 d -asa 81 d -dobutamine stress test mon; if + will xfer to [facility] for cath. If negative will optimize medically and send home with zoll defibrillator vest -cont PT Gram Positive bacteremia -source Left antecubital phlebitis/abscess -gram culture p/d -blood gram + cocci -angelica for i and d -ID: vanco, cefepime -warm compresses to area -repeat cultures tomorrow -will need picc. Bacteremia will delay cardiac cath. Hypoglycemia -due to anorexia associated with chf and liver congestion, slowed glipizide metabolism -resolved IDDM -poorly controlled, A1c = 10.8 -on d/c will stop glipizide 10 d and metformin 100bid. Hold levemir 20 d -BGM TIDAC -sliding scale requires 2 u /day -levemir 5 u AM -Diabetic Na restricted diet subclinical vs sick Hypothyroid -TSH 5.33 -free t4 wnl -no treatment indicated HTN -meds as above HLD -atorvastatin 40 hs Suspect PAD -would check ankle brachial index FEN no ivf optimize k and mag Diabetic na restricted diet Dispo tele Problem List - Problems (1) CHF (congestive heart failure) Code(s): I50.9 - HEART FAILURE, UNSPECIFIED Qualifiers: Congestive heart failure type: unspecified congestive heart failure type Congestive heart failure chronicity: acute Qualified Code(s): I50.9 - Heart failure, unspecified (2) Hypoglycemia Code(s): E16.2 - HYPOGLYCEMIA, UNSPECIFIED (3) Hypothyroid Code(s): E03.9 - HYPOTHYROIDISM, UNSPECIFIED Qualifiers: Hypothyroidism type: unspecified Qualified Code(s): E03.9 - Hypothyroidism, unspecified (4) Insulin dependent diabetes mellitus Code(s): E11.9 - TYPE 2 DIABETES MELLITUS WITHOUT COMPLICATIONS Z79.4 - DIGITAL PRODUCTION OPERATOR (CURRENT) USE OF INSULIN (5) HLD (hyperlipidemia) Code(s): E78.5 - HYPERLIPIDEMIA, UNSPECIFIED (6) HTN (hypertension) Code(s): I10 - ESSENTIAL (PRIMARY) HYPERTENSION (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 - New Patient This patient is new to me today: No - Critical Care Critical Care patient: No - Discharge Referral Referred to [facility] Med P.C.: No
[2016-06-28] MEDS: VANCOMYCIN 1 GRAM (PRE-DOCKED) 250 ML IVPB SCH (13:40)
[2016-06-28] MEDS: CEFEPIME 1 GM/100 ML BAG PRE-DOCKED IVPB SCH ×2 (13:41→21:40)
[2016-06-28] MEDS ORDERED: FUROSEMIDE 40 MG/4 ML INJECTABLE VIAL IVPUSH SCH (14:00)
--- NOTE | 2016-06-28 15:12 | CONS ---
DATE OF CONSULTATION: 06/28/2016 The patient is an 85-year-old male evaluated for catheter-related phlebitis and soft tissue abscess of the left antecubital fossa. He was admitted to the hospital on June 22, 2016, with symptomatic hypoglycemia. He was found to have a blood sugar of 23. EMS arrived and found him to be diaphoretic, poorly responsive, and tachycardic. He was brought to the emergency room. He was given D-10. The patient was admitted to the telemetry unit with hypoglycemia and decompensated congestive heart failure. On or about June 28, 2016, he was noted to have developed erythema, warmth, and swelling of the antecubital fossa at a previous IV site. He was noted to have a fluctuant area with expressible pus. A sonogram was performed and showed a soft tissue abscess. He has no complaints of pain at the present time, although he does appear to have discomfort when the left upper extremity is flexed. He has been afebrile with a normal white blood cell count. PAST MEDICAL HISTORY: Positive for diabetes mellitus, hypertension, hyperlipidemia. ALLERGIES: No known allergies. MEDICATIONS: Glipizide, metformin, insulin, simvastatin. SOCIAL HISTORY: Lives at home with family members. Former smoker. REVIEW OF SYSTEMS: Neurologic: No loss of consciousness, seizure activity, focal weakness. Cardiac: Negative chest pain or palpitations. Respiratory: Negative cough or sputum production. Gastrointestinal: Negative vomiting or diarrhea. Genitourinary: Negative for urinary tract infection. LABORATORY DATA: White count 8.2, hematocrit 33.0, platelet count 143. BUN 41, creatinine 1.2. Urinalysis: Negative leukocyte esterase. Sonogram of the left upper extremity shows diffuse soft tissue swelling with a hypoechoic density compatible with an abscess measuring 2.8 x 0.5 cm. PHYSICAL EXAMINATION: General: He is awake and alert. He is not acutely toxic appearing, in no acute distress. Vital Signs: Temperature 98.0, blood pressure 98/57, pulse 65, regular. Respirations 18 per minute. HEENT: Sclerae are anicteric. Cardiovascular: Heart sounds S1, S2. Lungs: Clear. Abdomen: Soft. No tenderness elicited. No mass, rebound, or rigidity. Extremities: Pedal edema 1+. Examination of the left upper extremity, there is an area of phlebitis present in the left antecubital fossa. There is a fluctuant area approximately 2 cm in diameter which is tender. There is no expressible pus. It is erythematous. No lymphangitic streaking, no axillary adenopathy. IMPRESSION: Catheter-related phlebitis/soft tissue abscess. PLAN: Await blood and wound culture results. Surgical evaluation for incision and drainage. Empiric antibiotic therapy for nosocomial skin pathogens with vancomycin and cefepime pending cultures. Thank you for the kind referral. AMAIRANI FRANKLIN M.D. RYAN/[id number]
--- NOTE | 2016-06-28 19:04 | PN ---
Teaching Attending Note Name of Resident: Devika Eric ATTENDING PHYSICIAN STATEMENT I saw and evaluated the patient. I reviewed the resident's note and discussed the case with the resident. I agree with the resident's findings and plan as documented. Patient is comfortable with no acute distress, LUE positive for redness and positive for discharge and hard. Vital Signs Temperature 98.9 F 06/28/16 18:00 Pulse Rate 68 06/28/16 18:00 Respiratory Rate 20 06/28/16 18:00 Blood Pressure 101/56 06/28/16 18:00 O2 Sat by Pulse Oximetry (%) 97 06/28/16 07:56 CBCD WBC 8.2 K/mm3 (4.0-10.0) D 06/28/16 00:05 RBC 3.73 M/mm3 (4.00-5.60) L 06/28/16 00:05 Hgb 10.9 GM/dL (11.7-16.9) L 06/28/16 00:05 Hct 33.0 % (35.4-49) L 06/28/16 00:05 MCV 88.4 fl (80-96) 06/28/16 00:05 MCHC 33.0 g/dl (32.0-35.9) 06/28/16 00:05 RDW 14.9 % (11.9-15.9) 06/28/16 00:05 Plt Count 143 K/MM3 (134-434) 06/28/16 00:05 MPV 9.8 fl (7.5-11.1) 06/28/16 00:05 CMP Sodium 132 mmol/L (136-145) L 06/28/16 05:38 Potassium 3.8 mmol/L (3.5-5.1) 06/28/16 05:38 Chloride 88 mmol/L (98-107) L 06/28/16 05:38 Carbon Dioxide 34 mmol/L (21-32) H 06/28/16 05:38 Anion Gap 10 (8-16) 06/28/16 05:38 BUN 41 mg/dL (7-18) H 06/28/16 05:38 Creatinine 1.2 mg/dL (0.7-1.3) 06/28/16 05:38 Creat Clearance w eGFR > 60 (>60) 06/24/16 08:18 Random Glucose 103 mg/dL (74-106) D 06/28/16 05:38 Calcium 7.2 mg/dL (8.5-10.1) L 06/28/16 05:38 Total Bilirubin 0.7 mg/dL (0.2-1.0) 06/24/16 08:18 AST 24 U/L (15-37) 06/24/16 08:18 ALT 15 U/L (12-78) 06/24/16 08:18 Alkaline Phosphatase 162 U/L (45-117) H 06/24/16 08:18 Total Protein 6.6 g/dl (6.4-8.2) 06/24/16 08:18 Albumin 2.9 g/dl (3.4-5.0) L 06/24/16 08:18 CARDIAC ENZYMES Creatine Kinase 238 IU/L (39-308) 06/22/16 15:19 Troponin I 0.02 ng/ml (0.00-0.05) 06/22/16 19:30 Current Medications Generic Name Dose Route Start Last Admin Trade Name Freq PRN Reason Stop Dose Admin Acetaminophen 650 mg 06/27/16 22:41 06/28/16 00:15 Tylenol - PO 650 mg Q6H PRN Administration FEVER OR PAIN Aspirin 81 mg 06/23/16 10:00 06/28/16 12:10 Ecotrin - PO 81 mg DAILY MI Administration Atorvastatin Calcium 40 mg 06/22/16 22:00 06/27/16 22:27 Lipitor - PO 40 mg HS MI Administration Carvedilol 12.5 mg 06/25/16 10:00 06/28/16 12:10 Coreg - PO Not Given BID MI Cefepime HCl 1 gm 06/28/16 13:30 06/28/16 13:41 Maxipime 1gm Ivpb Pre-Docked IVPB 1 gm BID MI Administration Protocol Ciprofloxacin 2 drop 06/25/16 00:30 06/28/16 17:14 Ciloxan 0.3% Eye Drops - OU 2 drop Q6HPO MI Administration Enalapril Maleate 5 mg 06/23/16 10:00 06/28/16 12:14 Vasotec - PO Not Given DAILY MI Furosemide 40 mg 06/28/16 10:10 06/28/16 13:40 Lasix Injection - IVPUSH 40 mg BID@0600,1400 [facility] Administration Heparin Sodium (Porcine) 5,000 unit 06/22/16 22:00 06/28/16 12:10 Heparin - SQ 5,000 unit BID MI Administration Vancomycin HCl 250 mls @ 200 mls/hr 06/28/16 13:30 06/28/16 13:40 Vancomycin (Pre-Docked) IVPB 200 mls/hr Q24H MI Administration Insulin Aspart 1 vial 06/23/16 11:00 06/28/16 17:12 Novolog Vial Sliding Scale - SQ Not Given TIDAC [facility] Protocol Insulin Detemir 5 units 06/26/16 07:00 06/28/16 06:10 Levemir Vial SQ Not Given AM [facility] Nystatin 1 applic 06/24/16 14:15 06/28/16 10:29 Nystop Powder - TP 1 applic DAILY [facility] Administration Spironolactone 25 mg 06/24/16 19:00 06/28/16 12:09 Aldactone - PO Not Given DAILY [facility] Home Medications Medication Instructions Recorded Enalapril Maleate 5 mg PO DAILY 06/22/16 Insulin Detemir [Levemir Flextouch] 20 unit SQ DAILY 06/22/16 Simvastatin 40 mg PO HS 06/22/16 Laboratory Tests 06/22/16 06/23/16 06/24/16 15:19 06:30 08:18 Creatinine 1.0 0.9 1.0 06/25/16 06/26/16 06/27/16 05:35 05:40 05:35 Creatinine 0.8 1.2 D 1.3 Microbiology 06/22/16 19:30 Nasopharyngeal Swab Respiratory Virus Panel - Preliminary 06/28/16 00:05 Blood - Peripheral Venous Blood Culture - Preliminary Pending Organism 06/28/16 00:05 Blood - Peripheral Venous Blood Culture - Preliminary Pending Organism 06/23/16 10:55 Urine - Urine - Catheterized Urine Culture - Final NO GROWTH OBTAINED 06/22/16 19:30 Nasopharyngeal Swab Influenza Types A,B Antigen (ISACC) - Final 06/22/16 19:30 Nasopharyngeal Swab - Final LUE: positive for erythema and hard , positive for discharge ECHO: LV systolic function severely reduced, severe global hypokinesis ASSESSMENT AND PLAN: 85yo M with PMH DM, HTN and dyslipidemia presented to the ER for Acute hypoglycemia and was admitted for further evaluation of their emergent condition #Catheter-related phlebitis of LUE anticubital area / soft tissue abscess ID consult for IV antibiotic, Blood culture is pending, will follow. Surgical consult for possbile debridment # VTs in Telemetry unit will maximize the mag level to 2.0 , ernie get ( Blood Bank Coordinator) to evaluate the patient # Severe global hypokinesis with severely reduced LV systolic function ; Persantine thalium stress test was csncelled today due to having low blood pressure # Acute systolic CHF newly diagnosed.on IV lasix 20mg Iv Bid , metoprolol switched to coreg. on acei. cont asa/spiroloactone/statin will discontinue digoxin. # Acute Hypoglycema improved with A1c 10.8. will discontinue po meds. will place her on levemir 5 units for consult. # DEBBIE 1.2 today , will continue IV lasix but 20mg IV Bid vs 40mg IV daily # Acute hyponatremia will monitor DVT ppx- hep sq PT evaluation
[2016-06-28] MEDS: ATORVASTATIN CA 40 MG TABLET (FP) PO SCH (21:40)
[2016-06-29] MEDS: FUROSEMIDE 40 MG/4 ML INJECTABLE VIAL IVPUSH SCH ×2 (05:36→13:49)
[2016-06-29] MEDS: CIPROFLOXACIN HCL 0.3% OPHTH 2.5ML BOTTLE OU SCH ×2 (05:36→12:03)
[2016-06-29] MEDS: INSULIN DETEMIR 100 UNITS/ML MDV SQ SCH (06:01)
[2016-06-29] MEDS: INSULIN SLIDING SCALE (NOVOLOG) 1 VIAL SQ SCH ×3 (06:04→16:58)
[2016-06-29 07:54] LABS: MCH 29.3 pg (25.7-33.7); MCHC 32.9 g/dl (32.0-35.9); PLATELET COUNT 129 K/MM3 (134-434); RDW 14.6 % (11.9-15.9); WHITE BLOOD COUNT 10.4 K/mm3 (4.0-10.0)
--- NOTE | 2016-06-29 07:54 | PN ---
Physical Exam: SUBJECTIVE: Patient seen and examined Patient has no fever or chills, no shortness of breath, LUE increased redness, able to move his fingers, family at bedside, son at bedside who speaks Divehi. OBJECTIVE: Vital Signs Temperature 98.4 F 06/29/16 05:56 Pulse Rate 71 06/29/16 05:56 Respiratory Rate 18 06/29/16 05:56 Blood Pressure 102/60 06/29/16 05:56 O2 Sat by Pulse Oximetry (%) 97 06/28/16 20:18 GENERAL: The patient is awake, alert, and fully oriented, in no acute distress. Nice gentleman. HEAD: Normal with no signs of trauma. EYES: PERRL, extraocular movements intact, sclera anicteric, conjunctiva clear. ENT: Ears normal, oropharynx clear without exudates, moist mucous membranes. NECK: Trachea midline, full range of motion, supple. LUNGS: decreased Breath sounds at bases , no wheezes, no crackles, no accessory muscle use. HEART: Regular rate and rhythm, S1, S2 positive, SEM2/6 , no S3, no gallop. ABDOMEN: Soft, nontender, nondistended, normoactive bowel sounds, no guarding, no rebound, no hepatosplenomegaly, no masses appreciated. EXTREMITIES: 2+ pulses, warm, well-perfused, no edema. LUE: + erythema with tenderness L antecubital fossa ; No expressible pus. NEUROLOGICAL: Cranial nerves II through XII grossly intact. Normal speech, gait not observed. PSYCH: Normal mood, normal affect. SKIN: Warm, dry, normal turgor, no rashes or lesions noted CBCD WBC 10.4 K/mm3 (4.0-10.0) H 06/29/16 06:00 RBC 3.74 M/mm3 (4.00-5.60) L 06/29/16 06:00 Hgb 10.9 GM/dL (11.7-16.9) L 06/29/16 06:00 Hct 33.2 % (35.4-49) L 06/29/16 06:00 MCV 89.0 fl (80-96) 06/29/16 06:00 MCHC 32.9 g/dl (32.0-35.9) 06/29/16 06:00 RDW 14.6 % (11.9-15.9) 06/29/16 06:00 Plt Count 129 K/MM3 (134-434) L 06/29/16 06:00 MPV 9.0 fl (7.5-11.1) 06/29/16 06:00 CMP Sodium 132 mmol/L (136-145) L 06/29/16 06:00 Potassium 4.4 mmol/L (3.5-5.1) 06/29/16 06:00 Chloride 87 mmol/L (98-107) L 06/29/16 06:00 Carbon Dioxide 32 mmol/L (21-32) 06/29/16 06:00 Anion Gap 13 (8-16) 06/29/16 06:00 BUN 36 mg/dL (7-18) H 06/29/16 06:00 Creatinine 1.2 mg/dL (0.7-1.3) 06/29/16 06:00 Creat Clearance w eGFR 57.54 (>60) 06/29/16 06:00 Random Glucose 138 mg/dL (74-106) H D 06/29/16 06:00 Calcium 7.4 mg/dL (8.5-10.1) L 06/29/16 06:00 Total Bilirubin 0.8 mg/dL (0.2-1.0) 06/29/16 06:00 AST 34 U/L (15-37) D 06/29/16 06:00 ALT 24 U/L (12-78) D 06/29/16 06:00 Alkaline Phosphatase 403 U/L (45-117) H D 06/29/16 06:00 Total Protein 6.1 g/dl (6.4-8.2) L 06/29/16 06:00 Albumin 2.5 g/dl (3.4-5.0) L 06/29/16 06:00 CARDIAC ENZYMES Creatine Kinase 238 IU/L (39-308) 06/22/16 15:19 Troponin I 0.02 ng/ml (0.00-0.05) 06/22/16 19:30 Active Medications Generic Name Dose Route Start Last Admin Trade Name Freq PRN Reason Stop Dose Admin Acetaminophen 650 mg 06/27/16 22:41 06/28/16 00:15 Tylenol - PO 650 mg Q6H PRN Administration FEVER OR PAIN Aspirin 81 mg 06/23/16 10:00 06/28/16 12:10 Ecotrin - PO 81 mg DAILY MI Administration Atorvastatin Calcium 40 mg 06/22/16 22:00 06/28/16 21:40 Lipitor - PO 40 mg HS [facility] Administration Carvedilol 12.5 mg 06/25/16 10:00 06/28/16 21:40 Coreg - PO Not Given BID [facility] Cefepime HCl 1 gm 06/28/16 13:30 06/28/16 21:40 Maxipime 1gm Ivpb Pre-Docked IVPB 1 gm BID [facility] Administration Protocol Ciprofloxacin 2 drop 06/25/16 00:30 06/29/16 05:36 Ciloxan 0.3% Eye Drops - OU 2 drop Q6HPO [facility] Administration Enalapril Maleate 5 mg 06/23/16 10:00 06/28/16 12:14 Vasotec - PO Not Given DAILY [facility] Furosemide 40 mg 06/28/16 10:10 06/29/16 05:36 Lasix Injection - IVPUSH 40 mg BID@0600,1400 [facility] Administration Heparin Sodium (Porcine) 5,000 unit 06/22/16 22:00 06/28/16 21:40 Heparin - SQ 5,000 unit BID [facility] Administration Vancomycin HCl 250 mls @ 200 mls/hr 06/28/16 13:30 06/28/16 13:40 Vancomycin (Pre-Docked) IVPB 200 mls/hr Q24H MI Administration Insulin Aspart 1 vial 06/23/16 11:00 06/29/16 06:04 Novolog Vial Sliding Scale - SQ Not Given TIDAC [facility] Protocol Insulin Detemir 5 units 06/26/16 07:00 06/29/16 06:01 Levemir Vial SQ 5 units AM MI Administration Nystatin 1 applic 06/24/16 14:15 06/28/16 10:29 Nystop Powder - TP 1 applic DAILY [facility] Administration Spironolactone 25 mg 06/24/16 19:00 06/28/16 12:09 Aldactone - PO Not Given DAILY [facility] Home Medications Medication Instructions Recorded Enalapril Maleate 5 mg PO DAILY 06/22/16 Insulin Detemir [Levemir Flextouch] 20 unit SQ DAILY 06/22/16 Simvastatin 40 mg PO HS 06/22/16 Microbiology 06/22/16 19:30 Nasopharyngeal Swab Respiratory Virus Panel - Preliminary 06/28/16 00:05 Blood - Peripheral Venous Blood Culture - Preliminary Pending Organism 06/28/16 00:05 Blood - Peripheral Venous Blood Culture - Preliminary Pending Organism 06/23/16 10:55 Urine - Urine - Catheterized Urine Culture - Final NO GROWTH OBTAINED 06/22/16 19:30 Nasopharyngeal Swab Influenza Types A,B Antigen (ISACC) - Final 06/22/16 19:30 Nasopharyngeal Swab - Final ECHO: LV systolic function severely reduced, severe global hypokinesis ASSESSMENT AND PLAN: Patient is a 85yo M with PMHx DM, HTN and dyslipidemia presented to the ER for Acute hypoglycemia and was admitted for further evaluation of their emergent condition. #Catheter-related phlebitis of LUE anticubital area / with an abscess, on IV antibiotic, Blood culture is pending, Vascular surgery consult, discussed with Dr.Nirav Joe ,will see the patient today . Warm compresses ordered, pillow under the arm to elevate the arm. # No VTs overnight on the monitor , ( Sales Support Associate) seen the patient will call to arrange if there is a need for a defibrillator. discussed the plan with (as per Dr.Doshi Zaragoza the plate grinder on the case didn't want to Tx the patient until patient gets stress test done in the hospital to check whether ischemic or not) . # Severe global hypokinesis with severely reduced LV systolic function ; Persantine thalium stress test was cancelled due to having low blood pressure, possible on Dobutamine stress test on Friday. Manager Of Financial on the case. # Acute systolic CHF newly diagnosed.on IV lasix 40mg Iv Bid , metoprolol switched to coreg. on acei. cont asa/spiroloactone/statin will discontinue digoxin for now # Acute Hypoglycema improved ; hemoglobin A1c 10.8. will [address] her on levemir 5 units for consult. # DEBBIE 1.2 today # Acute hyponatremia will monitor DVT px- hep sq; PT evaluation Visit type - Emergency Visit Emergency Visit: Yes ED Registration Date: 06/22/16 Care time: The patient presented to the Emergency Department on the above date and was hospitalized for further evaluation of their emergent condition. - New Patient This patient is new to me today: No - Critical Care Critical Care patient: No
[2016-06-29 08:22] LABS: ALBUMIN 2.5 g/dl (3.4-5.0); CALCIUM 7.4 mg/dL (8.5-10.1); MAGNESIUM 2.1 mg/dL (1.8-2.4)
[2016-06-29 08:26] LABS: BILIRUBIN,TOTAL 0.8 mg/dL (0.2-1.0); COCKROFT - GAULT 47.35; CREATININE 1.2 mg/dL (0.7-1.3); PHOSPHOROUS 3.4 mg/dL (2.5-4.9); TOT PROT 6.1 g/dl (6.4-8.2)
[2016-06-29] MEDS: ASPIRIN COATED 81 MG TABLET.EC PO SCH (09:12)
[2016-06-29] MEDS: HEPARIN NA (PORCINE) 5,000 UNITS/ML 1ML VIAL SQ SCH ×2 (09:12→22:03)
[2016-06-29] MEDS: CEFEPIME 1 GM/100 ML BAG PRE-DOCKED IVPB SCH (09:12)
[2016-06-29] MEDS: SPIRONOLACTONE 25 MG TABLET (FP) PO SCH (09:12)
[2016-06-29] MEDS: CARVEDILOL 12.5 MG TABLET (FP) PO SCH (09:12)
[2016-06-29] MEDS: NYSTATIN POWDER 100,000 UNITS/GM - 15 GM TOPICAL POWDER TP SCH (09:12)
[2016-06-29] MEDS: ENALAPRIL MALEATE 2.5 MG TABLET (FP) PO SCH (09:13)
--- NOTE | 2016-06-29 11:14 | PN ---
Progress Note, Physician History of Present Illness: Awake, alert Via hot tamale worker- no c/o L UE pain No fever/ chills Blood. wound c/s presumed MSSA - Current Medication List Current Medications: Active Medications Acetaminophen (Tylenol -) 650 mg PO Q6H PRN PRN Reason: FEVER OR PAIN Last Admin: 06/28/16 00:15 Dose: 650 mg Aspirin (Ecotrin -) 81 mg PO DAILY [facility] Last Admin: 06/29/16 09:12 Dose: 81 mg Atorvastatin Calcium (Lipitor -) 40 mg PO HS [facility] Last Admin: 06/28/16 21:40 Dose: 40 mg Carvedilol (Coreg -) 12.5 mg PO BID [facility] Last Admin: 06/29/16 09:12 Dose: 12.5 mg Ciprofloxacin (Ciloxan 0.3% Eye Drops -) 2 drop OU Q6HPO [facility] Last Admin: 06/29/16 05:36 Dose: 2 drop Enalapril Maleate (Vasotec -) 5 mg PO DAILY [facility] Last Admin: 06/29/16 09:13 Dose: 5 mg Furosemide (Lasix Injection -) 40 mg IVPUSH BID@0600,1400 [facility] Last Admin: 06/29/16 05:36 Dose: 40 mg Heparin Sodium (Porcine) (Heparin -) 5,000 unit SQ BID [facility] Last Admin: 06/29/16 09:12 Dose: 5,000 unit Vancomycin HCl (Vancomycin (Pre-Docked)) 250 mls @ 200 mls/hr IVPB Q24H [facility] Last Admin: 06/28/16 13:40 Dose: 200 mls/hr Cefazolin Sodium 1 gm/ (Dextrose) 50 mls @ 100 mls/hr IVPB Q8H-IV [facility] Insulin Aspart (Novolog Vial Sliding Scale -) 1 vial SQ TIDAC [facility] PRN Reason: Protocol Last Admin: 06/29/16 06:04 Dose: Not Given Insulin Detemir (Levemir Vial) 5 units SQ AM [facility] Last Admin: 06/29/16 06:01 Dose: 5 units Nystatin (Nystop Powder -) 1 applic TP DAILY [facility] Last Admin: 06/29/16 09:12 Dose: 1 applic Spironolactone (Aldactone -) 25 mg PO DAILY [facility] Last Admin: 06/29/16 09:12 Dose: 25 mg - Objective Vital Signs: Vital Signs Temperature 98.4 F 06/29/16 05:56 Pulse Rate 71 06/29/16 05:56 Respiratory Rate 18 06/29/16 05:56 Blood Pressure 102/60 06/29/16 05:56 O2 Sat by Pulse Oximetry (%) 97 06/28/16 20:18 Constitutional: Yes: No Distress Eyes: Yes: Conjunctiva Clear Cardiovascular: Yes: Regular Rate and Rhythm, S1, S2 Respiratory: Yes: CTA Bilaterally Gastrointestinal: Yes: Normal Bowel Sounds, Soft, Abdomen, Obese. No: Tenderness Extremities: Yes: Other (+ erythema/ induration/ tenderness L antecubital fossa No expressible pus) Labs: CBC, BMP 06/29/16 06:00 06/29/16 06:00 INR, PTT INR 1.26 (0.82-1.09) H 06/22/16 15:19 Assessment/Plan Catheter- related phlebitis/ cellulitis/ abscess L antecubital fossa Await cuture results Continue vanco D/C cefepime; substitute cefazolin Surgical evaluation
[2016-06-29] MEDS: CEFAZOLIN (PRE-DOCKED) 50 ML IVPB SCH ×2 (12:00→20:24)
[2016-06-29] MEDS: VANCOMYCIN 1 GRAM (PRE-DOCKED) 250 ML IVPB SCH (13:49)
--- NOTE | 2016-06-29 15:18 | PN ---
Progress Note (short form) - Note Progress Note: VAscular Surgery Pt seen and examined. Celluliits from IV insertion in past. Right antecubital space with erythema, pain. Area squeezed and could not express much drainage. Removed the eschar from wound and no pus found. Would do warm compresses twice a hour for 10-15 min Cont antibiotics. If does not get better might need I&D. Spoke to family bedside. Hitesh Joe DO
[2016-06-29] MEDS: ACETAMINOPHEN 325 MG TABLET (FP) PO PRN (15:40)
[2016-06-29] MEDS ORDERED: PHENYLEPHRINE HCL 10,000 MCG in DEXTROSE 5%-WATER - 499 ML IV SCH (17:45)
--- NOTE | 2016-06-29 18:02 | HOSP ---
Subjective - Review of Symptoms Events since last encounter: RR was called since Blood pressure was found to be in 60/30s. Patient was found to be in CHF, s/p Vancomycin. Patient transferred to ICU. Called who will see the patient at 7pm tonight. Patient was placed on Bipap, Neosynephrine titrate to SBP of 95. CXR stat. will get CE q6x 2sets , EKG stat, CxR now .lactic acid stat. #[facility]F exacerbation critical care time of 35 minutes \ Physical Examination Vital Signs: Vital Signs Temperature 98.9 F 06/29/16 15:23 Pulse Rate 83 06/29/16 15:23 Respiratory Rate 18 06/29/16 15:23 Blood Pressure 137/82 06/29/16 15:23 O2 Sat by Pulse Oximetry (%) 95 06/29/16 09:00 Labs: CBC, BMP 06/29/16 06:00 06/29/16 06:00
[2016-06-29] MEDS ORDERED: PHENYLEPHRINE HCL 10 MG/1 ML SINGLE DOSE VIAL ONE ×2 (18:04→18:06)
[2016-06-29 19:25] LABS: TROPONIN I 0.03 ng/ml (0.00-0.05)
--- NOTE | 2016-06-29 19:57 | CONSULT ---
Consult - text type - Consultation Consultation Note: Cardiology not in distress, seems stable PE: vitals stable normal cardio-pulmonary symptoms abdomen soft +3 leg edema, better Impression: acute systolic CHF, severely reduced EF, moderate MR and TR, mild aortic sclerosis large left plural effusion, most likely due to CHF, but pulmonary evaluation helpful mild ARF lipids within target hypothyroid, ? need for treatment episode of hypotension, with maybe dyspnea; STEWARD/STEWARDESS SECOND, transferred to ICU, on neosynephrine discussed with EP, recpommended ischemia evaluation; patient not a candidate for left heart catheterization just lifevest when discharge with EF re-eval in 3 months Rec: aspirin, heparin, atorvastatin hold lasix and ACEI and coreg taper down neosynephrine, and observe BP off Bipap when oxygen stable
--- NOTE | 2016-06-29 20:09 | CONSULT ---
Consult Consult Specialty:: Pulm/CCM Reason for Consultation:: hypotension requiring vasopressors - History of Present Illness Chief Complaint: hypotension History of Present Illness: Briefly Mr Kim is an 85 y/o man with hx of DDM, HTN, HLD and ? new dx CHF who was admitted approximately one week ago with hypoglycemia and weakness. Was being manage on floor, with workup of new heart failure, diuresis, and optimization of glucose. He was doing relatively well on floor with good response to diuretics and his Cr was stable at ~ 1.0. Two days ago he was noted to have an infiltrated IV in L antecubital space, redness, induration and with US showing small pocket. There was some pus expressed. He subsquently had postive Bcxl with presumptive MSSA. ID has followed and is currently on cefzolin. Today a Rapid Response was called for BP 60/30, decreased mental status, and diaphoresis. He was hypoxic and required NIVPPV. He was brought to ICU where peripheral neosynepherine was started. His BP responded well and oxygenation improved. - History Source History Provided By: Family Member, Medical Record Limitations to Obtaining History: Language Barrier - Past Medical History Cardio/Vascular: Yes: CHF Endocrine: Yes: Diabetes Mellitus - Alcohol/Substance Use Hx Alcohol Use: No - Smoking History Smoking history: Never smoked Home Medications - Allergies Allergies/Adverse Reactions: Allergies Allergy/AdvReac Type Severity Reaction Status Date / Time No Known Allergies Allergy Verified 06/22/16 15:18 - Home Medications Home Medications: Ambulatory Orders Enalapril Maleate 5 mg PO DAILY 06/22/16 Insulin Detemir [Levemir Flextouch] 20 unit SQ DAILY 06/22/16 Simvastatin 40 mg PO HS 06/22/16 Family Disease History - Family Disease History Family History: Unremarkable Other Family History: No family h/o DM. Noncontrib Review of Systems Unable to obtain ROS, reason: language barrier, Findings/Remarks: As per HPI. no other new complaints. Physical Exam Vital Signs: Vital Signs Temperature 98.9 F 06/29/16 15:23 Pulse Rate 61 06/29/16 18:47 Respiratory Rate 18 06/29/16 15:23 Blood Pressure 137/82 06/29/16 15:23 O2 Sat by Pulse Oximetry (%) 100 06/29/16 18:47 Constitutional: Yes: No Distress Eyes: Yes: Conjunctiva Clear, PERRL HENT: Yes: WNL Neck: Yes: Trachea Midline Cardiovascular: Yes: Bradycardia, Murmur, S1, S2 Respiratory: Yes: On BiPap, Rales (few basilar rales). No: Accessory Muscle Use Gastrointestinal: Yes: Normal Bowel Sounds, Soft. No: Ascites, Tenderness ...Rectal Exam: Yes: Deferred Renal/: Yes: WNL Breast(s): Yes: WNL Musculoskeletal: Yes: WNL Extremities: Yes: WNL Edema: Yes Integumentary: Yes: Venous Stasis Changes, Other (L swollen and reddened areas approx 2 x3 cm at L AC fossa, ? induration but unable to express any pus) Wound/Incision: Yes: Reddened Neurological: Yes: Alert, Cran Nerves II-XII Intact ...Motor Strength: WNL Psychiatric: Yes: WNL Labs: CBC, BMP 06/29/16 06:00 06/29/16 06:00 Imaging - Results Chest X-ray: Image Reviewed (mild pulm vascular congestion, small effusion, no focal infiltrate) EKG: Image Reviewed (Sinus simon with occ pvc, poor R wave progression, no acute ST changes unchanged with compared to 06/24) Problem List - Problems (1) CHF (congestive heart failure) Code(s): I50.9 - HEART FAILURE, UNSPECIFIED Qualifiers: Congestive heart failure type: unspecified congestive heart failure type Congestive heart failure chronicity: acute Qualified Code(s): I50.9 - Heart failure, unspecified (2) Gram-positive bacteremia Code(s): A49.9 - BACTERIAL INFECTION, UNSPECIFIED (3) Hypoglycemia Code(s): E16.2 - HYPOGLYCEMIA, UNSPECIFIED (4) Soft tissue abscess Code(s): L02.91 - CUTANEOUS ABSCESS, UNSPECIFIED (5) Hypotension Code(s): I95.9 - HYPOTENSION, UNSPECIFIED Assessment/Plan Pulm/CCM A/ 85 y/o man with hx of DM, HTN, HL and new CHF now admitted to ICU with hypotension from likely over diuresis and some septic physiology in setting of presumptive MSSA bacteremia from cellulitis/soft tissue abscess P/ -hold diuresis and anti htns -wean vasopressors, if uptirating significantly will place central access -wean NIV back to supplemental O2 -serial trop, bnp -cont statin, hep sq -cont cefazolin, no indication to broaden -glucose control -maintain in ICU tonight, reeval in am if stablizes Tomy Draper ACNP [id number] I spent ~35 minutes of Critical Care time, excluding separately billable procedures, involving high complexity decision making to assess, manipulate and support vital system function(s) to treat single or multiple vital organ system failure and/or to prevent further life threatening deterioration of the patient' s condition.
[2016-06-29] MEDS ORDERED: CEFAZOLIN (PRE-DOCKED) 50 ML IVPB ONE (20:22)
[2016-06-29] MEDS: ATORVASTATIN CA 40 MG TABLET (FP) PO SCH (22:00)
[2016-06-30 00:37] LABS: TROPONIN I 0.02 ng/ml (0.00-0.05)
[2016-06-30] MEDS: CIPROFLOXACIN HCL 0.3% OPHTH 2.5ML BOTTLE OU SCH ×6 (02:32→23:48)
[2016-06-30] MEDS: CEFAZOLIN (PRE-DOCKED) 50 ML IVPB SCH ×2 (02:32→09:29)
[2016-06-30] MEDS: FUROSEMIDE 40 MG/4 ML INJECTABLE VIAL IVPUSH SCH ×2 (06:35→13:37)
[2016-06-30] MEDS: INSULIN SLIDING SCALE (NOVOLOG) 1 VIAL SQ SCH ×3 (06:42→16:04)
[2016-06-30] MEDS: INSULIN DETEMIR 100 UNITS/ML MDV SQ SCH (06:45)
[2016-06-30 06:58] LABS: BASOPHIL 0.4 % (0-2.0); MCHC 32.7 g/dl (32.0-35.9); MEAN CELL VOLUME 88.6 fl (80-96); MEAN PLT VOLUME 9.8 fl (7.5-11.1); NEUTROPHILS 78.5 % (42.8-82.8); PLATELET COUNT 122 K/MM3 (134-434); RDW 14.7 % (11.9-15.9); WHITE BLOOD COUNT 9.1 K/mm3 (4.0-10.0)
[2016-06-30 07:41] LABS: ALBUMIN 2.1 g/dl (3.4-5.0); ANION GAP 12 (8-16); CALCIUM 7.3 mg/dL (8.5-10.1); CO2 31 mmol/L (21-32); COCKROFT - GAULT 61; CREATININE 0.9 mg/dL (0.7-1.3); GLUCOSE,RANDOM 83 mg/dL (74-106); SGPT/ALT 16 U/L (12-78)
[2016-06-30 07:50] LABS: ALK PHOS 347 U/L (45-117); BILIRUBIN,TOTAL 0.5 mg/dL (0.2-1.0); SGOT/AST 26 U/L (15-37); TOT PROT 5.6 g/dl (6.4-8.2); TROPONIN I 0.02 ng/ml (0.00-0.05)
[2016-06-30] MEDS: HEPARIN NA (PORCINE) 5,000 UNITS/ML 1ML VIAL SQ SCH ×2 (09:29→21:28)
[2016-06-30] MEDS: SPIRONOLACTONE 25 MG TABLET (FP) PO SCH (09:29)
--- NOTE | 2016-06-30 09:45 | PN ---
Progress Note (short form) - Note Progress Note: Patient seen and examined in the ICU. Awake and alert. Required Jerome transiently last night. NIPPV overnight. Remains on VM O2. Denies CP. Some dry cough and mildly tachypneic at rest. CHF : No gross change in CHF pattern Intake & Output 06/27/16 06/28/16 06/29/16 06/30/16 23:59 23:59 23:59 23:59 Intake Total 180 920 600 157 Output Total 1050 1750 1400 800 Balance -870 -830 -800 -643 Weight 162 lb 6.4 oz 164 lb 159 lb 2.78 oz Last Vital Signs Temp Pulse Resp BP Pulse Ox 98.0 F 58 L 14 93/56 100 06/30/16 06:32 06/30/16 08:30 06/30/16 09:00 06/30/16 08:30 06/30/16 09:00 Active Medications Acetaminophen (Tylenol -) 650 mg PO Q6H PRN PRN Reason: FEVER OR PAIN Last Admin: 06/29/16 15:40 Dose: 650 mg Atorvastatin Calcium (Lipitor -) 40 mg PO HS MI Ciprofloxacin (Ciloxan 0.3% Eye Drops -) 2 drop OU Q6HPO MI Last Admin: 06/30/16 06:34 Dose: 2 drop Furosemide (Lasix Injection -) 40 mg IVPUSH BID@0600,1400 [facility] Last Admin: 06/30/16 06:35 Dose: Not Given Heparin Sodium (Porcine) (Heparin -) 5,000 unit SQ BID MI Last Admin: 06/30/16 09:29 Dose: 5,000 unit Cefazolin Sodium (Ancef 1gm Ivpb (Pre-Docked)) 50 mls @ 100 mls/hr IVPB Q8H-IV MI Last Admin: 06/30/16 09:29 Dose: 100 mls/hr Insulin Aspart (Novolog Vial Sliding Scale -) 1 vial SQ TIDAC MI PRN Reason: Protocol Insulin Detemir (Levemir Vial) 5 units SQ AM [facility] Last Admin: 06/30/16 06:45 Dose: 5 units Nystatin (Nystop Powder -) 1 applic TP DAILY MI Last Admin: 06/29/16 09:12 Dose: 1 applic Spironolactone (Aldactone -) 25 mg PO DAILY [facility] Last Admin: 06/30/16 09:29 Dose: 25 mg Constitutional: Yes: Mildly tachypneic at rest Eyes: Yes: Conjunctiva Clear HENT: Yes: WNL Neck: Yes: Trachea Midline Cardiovascular: Yes: S1, S2, (+) ESM Respiratory: Yes: Bilateral Rales No: Accessory Muscle Use Gastrointestinal: Yes: Normal Bowel Sounds, Soft. No: Ascites, Tenderness ...Rectal Exam: Yes: Deferred Renal/: Yes: WNL Breast(s): Yes: WNL Musculoskeletal: Yes: WNL Extremities: Yes: WNL Edema: Yes Integumentary: Yes: Venous Stasis Changes, Other (L swollen and reddened areas approx 2 x3 cm at L AC fossa) Wound/Incision: Yes: Reddened Neurological: Yes: Awake, non-focal ...Motor Strength: WNL Psychiatric: Yes: WNL Labs: Laboratory Results - last 24 hr 06/29/16 06/29/16 06/29/16 11:46 16:55 17:27 WBC RBC Hgb Hct MCV MCHC RDW Plt Count MPV Neutrophils % Lymphocytes % Monocytes % Eosinophils % Basophils % Sodium Potassium Chloride Carbon Dioxide Anion Gap BUN Creatinine Creat Clearance w eGFR POC Glucometer 195 175 185 Random Glucose Lactic Acid Calcium Magnesium Total Bilirubin AST ALT Alkaline Phosphatase Creatine Kinase CK-MB (CK-2) CK-MB (CK-2) Rel Index Troponin I Total Protein Albumin 06/29/16 06/29/16 06/29/16 18:50 18:50 18:50 WBC RBC Hgb Hct MCV MCHC RDW Plt Count MPV Neutrophils % Lymphocytes % Monocytes % Eosinophils % Basophils % Sodium Potassium Chloride Carbon Dioxide Anion Gap BUN Creatinine Creat Clearance w eGFR POC Glucometer Random Glucose Lactic Acid 1.103 Calcium Magnesium Total Bilirubin AST ALT Alkaline Phosphatase Creatine Kinase 329 H D CK-MB (CK-2) 1.097 CK-MB (CK-2) Rel Index Cancelled Troponin I 0.03 D Total Protein Albumin 06/29/16 06/30/16 06/30/16 21:55 00:01 00:01 WBC RBC Hgb Hct MCV MCHC RDW Plt Count MPV Neutrophils % Lymphocytes % Monocytes % Eosinophils % Basophils % Sodium Potassium Chloride Carbon Dioxide Anion Gap BUN Creatinine Creat Clearance w eGFR POC Glucometer 170.22512 Random Glucose Lactic Acid Calcium Magnesium Total Bilirubin AST ALT Alkaline Phosphatase Creatine Kinase 342 H CK-MB (CK-2) CK-MB (CK-2) Rel Index Cancelled Troponin I 0.02 D Total Protein Albumin 06/30/16 06/30/16 06/30/16 05:27 05:27 05:27 WBC 9.1 RBC 3.53 L Hgb 10.2 L Hct 31.3 L MCV 88.6 MCHC 32.7 RDW 14.7 Plt Count 122 L MPV 9.8 Neutrophils % 78.5 Lymphocytes % 11.1 Monocytes % 9.0 Eosinophils % 1.0 D Basophils % 0.4 Sodium 132 L Potassium 3.9 Chloride 89 L Carbon Dioxide 31 Anion Gap 12 BUN 31 H Creatinine 0.9 D Creat Clearance w eGFR > 60 POC Glucometer Random Glucose 83 D Lactic Acid Calcium 7.3 L Magnesium 2.0 Total Bilirubin 0.5 D AST 26 D ALT 16 D Alkaline Phosphatase 347 H Creatine Kinase 292 CK-MB (CK-2) CK-MB (CK-2) Rel Index Cancelled Troponin I 0.02 Total Protein 5.6 L Albumin 2.1 L 06/30/16 06:42 WBC RBC Hgb Hct MCV MCHC RDW Plt Count MPV Neutrophils % Lymphocytes % Monocytes % Eosinophils % Basophils % Sodium Potassium Chloride Carbon Dioxide Anion Gap BUN Creatinine Creat Clearance w eGFR POC Glucometer 120.87536 Random Glucose Lactic Acid Calcium Magnesium Total Bilirubin AST ALT Alkaline Phosphatase Creatine Kinase CK-MB (CK-2) CK-MB (CK-2) Rel Index Troponin I Total Protein Albumin Problem List - Problems (1) CHF (congestive heart failure) Code(s): I50.9 - HEART FAILURE, UNSPECIFIED Qualifiers: Congestive heart failure type: unspecified congestive heart failure type Congestive heart failure chronicity: acute Qualified Code(s): I50.9 - Heart failure, unspecified (2) Gram-positive bacteremia Code(s): A49.9 - BACTERIAL INFECTION, UNSPECIFIED (3) Hypoglycemia Code(s): E16.2 - HYPOGLYCEMIA, UNSPECIFIED (4) Soft tissue abscess Code(s): L02.91 - CUTANEOUS ABSCESS, UNSPECIFIED (5) Hypotension Code(s): I95.9 - HYPOTENSION, UNSPECIFIED Assessment/Plan DM HTN HPL CHF Transient hypotension -> due to medications +/- Sepsis Suspected MSSA bacteremia due to cellulitis/soft tissue abscess -Diuresis as tolerated -Monitor off vasopressors -VM O2 alternating with NIPPV as needed -Statin -VTE prophylaxis -ABX per ID -Aspiration precautions -PO as tolerated Dr Peter I spent ~35 minutes of Critical Care time, excluding separately billable procedures, involving high complexity decision making to assess, manipulate and support vital system function(s) to treat single or multiple vital organ system failure and/or to prevent further life threatening deterioration of the patient' s condition.
--- NOTE | 2016-06-30 10:40 | PN ---
Physical Exam: SUBJECTIVE: Patient seen and examined Resting in bed NAD. was xferred ICU due to hypotension 60 systolic. was on phenulephrine but not stable w/o pressirs BP at baseline. afebrile. BG mid 100's -low 200's. feels well. good appetite. no sob, weakness, dizziness, cough, chest pain, n/v or h/a. OBJECTIVE: Vital Signs Period Temp Pulse Resp BP Sys/Arboleda Pulse Ox Last 24 Hr 97.6 F-98.9 F 54-83 14-22 88-137/53-82 100-100 GENERAL: Awake, alert, and fully oriented, in no acute distress. HEAD: Normal with no signs of trauma. EYES: Pupils equal, round and reactive to light, extraocular movements intact, sclera anicteric, conjunctiva clear. No lid lag. EARS, NOSE, THROAT: oropharynx clear without exudates. Moist mucous membranes. NECK: supple mild JVD, LUNGS: bibasilar crackles improved HEART: Regular rate and rhythm, normal S1 and S2 grade 2 systolic murmur, PMI deviated left ABDOMEN: Soft, nontender, mod distended distended, globally reduced bowel sounds , no abd edema MUSCULOSKELETAL: No CVA tenderness. UPPER EXTREMITIES: 2+ pulses, warm, well-perfused. No cyanosis. No clubbing. No peripheral edema. LOWER EXTREMITIES: not palpable pulses, cool, 1+ pitting edema, improved from yesterday. NEUROLOGICAL: Cranial nerves II-XII intact. Normal speech. strength 4+/5 , 1+ reflexes upper and lower extremities, PSYCHIATRIC: Cooperative. Good eye contact. Appropriate mood and affect. SKIN: Warm, dry Laboratory Results - last 24 hr 06/29/16 06/29/16 06/29/16 11:46 16:55 17:27 WBC RBC Hgb Hct MCV MCHC RDW Plt Count MPV Neutrophils % Lymphocytes % Monocytes % Eosinophils % Basophils % Sodium Potassium Chloride Carbon Dioxide Anion Gap BUN Creatinine Creat Clearance w eGFR POC Glucometer 195 175 185 Random Glucose Lactic Acid Calcium Magnesium Total Bilirubin AST ALT Alkaline Phosphatase Creatine Kinase CK-MB (CK-2) CK-MB (CK-2) Rel Index Troponin I Total Protein Albumin 06/29/16 06/29/16 06/29/16 18:50 18:50 18:50 WBC RBC Hgb Hct MCV MCHC RDW Plt Count MPV Neutrophils % Lymphocytes % Monocytes % Eosinophils % Basophils % Sodium Potassium Chloride Carbon Dioxide Anion Gap BUN Creatinine Creat Clearance w eGFR POC Glucometer Random Glucose Lactic Acid 1.103 Calcium Magnesium Total Bilirubin AST ALT Alkaline Phosphatase Creatine Kinase 329 H D CK-MB (CK-2) 1.097 CK-MB (CK-2) Rel Index Cancelled Troponin I 0.03 D Total Protein Albumin 06/29/16 06/30/16 06/30/16 21:55 00:01 00:01 WBC RBC Hgb Hct MCV MCHC RDW Plt Count MPV Neutrophils % Lymphocytes % Monocytes % Eosinophils % Basophils % Sodium Potassium Chloride Carbon Dioxide Anion Gap BUN Creatinine Creat Clearance w eGFR POC Glucometer [phone] Random Glucose Lactic Acid Calcium Magnesium Total Bilirubin AST ALT Alkaline Phosphatase Creatine Kinase 342 H CK-MB (CK-2) CK-MB (CK-2) Rel Index Cancelled Troponin I 0.02 D Total Protein Albumin 06/30/16 06/30/16 06/30/16 05:27 05:27 05:27 WBC 9.1 RBC 3.53 L Hgb 10.2 L Hct 31.3 L MCV 88.6 MCHC 32.7 RDW 14.7 Plt Count 122 L MPV 9.8 Neutrophils % 78.5 Lymphocytes % 11.1 Monocytes % 9.0 Eosinophils % 1.0 D Basophils % 0.4 Sodium 132 L Potassium 3.9 Chloride 89 L Carbon Dioxide 31 Anion Gap 12 BUN 31 H Creatinine 0.9 D Creat Clearance w eGFR > 60 POC Glucometer Random Glucose 83 D Lactic Acid Calcium 7.3 L Magnesium 2.0 Total Bilirubin 0.5 D AST 26 D ALT 16 D Alkaline Phosphatase 347 H Creatine Kinase 292 CK-MB (CK-2) CK-MB (CK-2) Rel Index Cancelled Troponin I 0.02 Total Protein 5.6 L Albumin 2.1 L 06/30/16 06:42 WBC RBC Hgb Hct MCV MCHC RDW Plt Count MPV Neutrophils % Lymphocytes % Monocytes % Eosinophils % Basophils % Sodium Potassium Chloride Carbon Dioxide Anion Gap BUN Creatinine Creat Clearance w eGFR POC Glucometer 120.24153 Random Glucose Lactic Acid Calcium Magnesium Total Bilirubin AST ALT Alkaline Phosphatase Creatine Kinase CK-MB (CK-2) CK-MB (CK-2) Rel Index Troponin I Total Protein Albumin Active Medications Generic Name Dose Route Start Last Admin Trade Name Freq PRN Reason Stop Dose Admin Acetaminophen 650 mg 06/27/16 22:41 06/29/16 15:40 Tylenol - PO 650 mg Q6H PRN Administration FEVER OR PAIN Atorvastatin Calcium 40 mg 06/30/16 22:00 Lipitor - PO HS MI Ciprofloxacin 2 drop 06/25/16 00:30 06/30/16 06:34 Ciloxan 0.3% Eye Drops - OU 2 drop Q6HPO MI Administration Furosemide 40 mg 06/28/16 10:10 06/30/16 06:35 Lasix Injection - IVPUSH Not Given BID@0600,1400 MI Heparin Sodium (Porcine) 5,000 unit 06/30/16 10:00 06/30/16 09:29 Heparin - SQ 5,000 unit BID MI Administration Cefazolin Sodium 50 mls @ 100 mls/hr 06/29/16 11:15 06/30/16 09:29 Ancef 1gm Ivpb (Pre-Docked) IVPB 100 mls/hr Q8H-IV MI Administration Insulin Aspart 1 vial 06/30/16 11:00 Novolog Vial Sliding Scale - SQ TIDAC [facility] Protocol Insulin Detemir 5 units 06/26/16 07:00 06/30/16 06:45 Levemir Vial SQ 5 units AM MI Administration Nystatin 1 applic 06/24/16 14:15 06/29/16 09:12 Nystop Powder - TP 1 applic DAILY MI Administration Spironolactone 25 mg 06/24/16 19:00 06/30/16 09:29 Aldactone - PO 25 mg DAILY MI Administration ASSESSMENT/PLAN: This is an 85 yo M with PMH of IDDM, HTN, HLD, who BBEMS after being found unresponsive by . [place] ambulance his BG was 23 and increased to 66 after d50 at which time he regained consciousness with baseline mental status. Hypotension -due to chf exacerbation -resolved, stable off pressors -cont to hold coreg and enalapril -ICU one more day Acute decompensated CHF -likely due to CAD; admission BNP 8222 and congested CXR -EKG L axis, 1 degree av block, poor rv progression, sonspecif t flattening in inferolateral leads, no ACS -TTE severely reduced EF, global LV hypokinesis -evaluated by cardiology -evaluated by EP -requires further diuresis. IV lasix 40 bid. -hold enalapril 5 and coreg 12.5, will restart tomorrow. -aldactone 25 d -asa 81 d -dobutamine stress test mon; not a cath candidate bc bacteremic. will optimize medically and send home with zoll defibrillator vest -cont PT Gram Positive bacteremia -source Left antecubital phlebitis/abscess -gram culture, blood MSSA -ID: nafcillin -warm compresses to area -will need picc. Bacteremia will delay cardiac cath. Hypoglycemia -due to anorexia associated with chf and liver congestion, slowed glipizide metabolism -resolved IDDM -poorly controlled, A1c = 10.8 -on d/c will stop glipizide 10 d and metformin 100bid. Hold levemir 20 d -BGM TIDAC -sliding scale -levemir 5 u AM -Diabetic Na restricted diet subclinical vs sick Hypothyroid -TSH 5.33 -free t4 wnl -no treatment indicated HTN -meds as above HLD -atorvastatin 40 hs Suspect PAD -would check ankle brachial index FEN no ivf optimize k and mag Diabetic na restricted diet Dispo icu Problem List - Problems (1) CHF (congestive heart failure) Code(s): I50.9 - HEART FAILURE, UNSPECIFIED Qualifiers: Congestive heart failure type: unspecified congestive heart failure type Congestive heart failure chronicity: acute Qualified Code(s): I50.9 - Heart failure, unspecified (2) Hypoglycemia Code(s): E16.2 - HYPOGLYCEMIA, UNSPECIFIED (3) Hypothyroid Code(s): E03.9 - HYPOTHYROIDISM, UNSPECIFIED Qualifiers: Hypothyroidism type: unspecified Qualified Code(s): E03.9 - Hypothyroidism, unspecified (4) Insulin dependent diabetes mellitus Code(s): E11.9 - TYPE 2 DIABETES MELLITUS WITHOUT COMPLICATIONS Z79.4 - NURSING HOME (CURRENT) USE OF INSULIN (5) HLD (hyperlipidemia) Code(s): E78.5 - HYPERLIPIDEMIA, UNSPECIFIED (6) HTN (hypertension) Code(s): I10 - ESSENTIAL (PRIMARY) HYPERTENSION (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 - New Patient This patient is new to me today: No - Critical Care Critical Care patient: Yes Total Critical Care Time (in minutes): 45 Critical Care Statement: The care of this patient involved high complexity decision making to prevent further life threatening deterioration of the patient 's condition and/or to evalute & treat vital organ system(s) failure or risk of failure. - Discharge Referral Referred to [facility] No
--- NOTE | 2016-06-30 10:45 | PN ---
Teaching Attending Note Name of Resident: Devika Eric ATTENDING PHYSICIAN STATEMENT I saw and evaluated the patient. I reviewed the resident's note and discussed the case with the resident. I agree with the resident's findings and plan as documented. Patient is feeling better, in ICU, off bipap and Neosynephrine ggt. No fever or chills, no shortness of breath Vital Signs Temperature 98.0 F 06/30/16 06:32 Pulse Rate 60 06/30/16 10:00 Respiratory Rate 14 06/30/16 10:00 Blood Pressure 104/53 06/30/16 10:00 O2 Sat by Pulse Oximetry (%) 100 06/30/16 09:00 GENERAL: The patient is awake, alert, and fully oriented, in no acute distress. Nice gentleman. HEAD: Normal with no signs of trauma. EYES: PERRL, extraocular movements intact, sclera anicteric, conjunctiva clear. ENT: Ears normal, oropharynx clear without exudates, moist mucous membranes. NECK: Trachea midline, full range of motion, supple. LUNGS: decreased Breath sounds at bases , no rales or rhochi, no crackles, no accessory muscle use. HEART: Regular rate and rhythm, S1, S2 positive, SEM2/6 , no S3, no gallop. ABDOMEN: Soft, nontender, nondistended, normoactive bowel sounds, no guarding, no rebound, no hepatosplenomegaly, no masses appreciated. EXTREMITIES: 2+ pulses, warm, well-perfused, no edema. LUE: + erythema with tenderness L antecubital fossa ; No expressible pus. NEUROLOGICAL: Cranial nerves II through XII grossly intact. Normal speech, gait not observed. PSYCH: Normal mood, normal affect. SKIN: Warm, dry, normal turgor, no rashes or lesions noted CBCD WBC 9.1 K/mm3 (4.0-10.0) 06/30/16 05:27 RBC 3.53 M/mm3 (4.00-5.60) L 06/30/16 05:27 Hgb 10.2 GM/dL (11.7-16.9) L 06/30/16 05:27 Hct 31.3 % (35.4-49) L 06/30/16 05:27 MCV 88.6 fl (80-96) 06/30/16 05:27 MCHC 32.7 g/dl (32.0-35.9) 06/30/16 05:27 RDW 14.7 % (11.9-15.9) 06/30/16 05:27 Plt Count 122 K/MM3 (134-434) L 06/30/16 05:27 MPV 9.8 fl (7.5-11.1) 06/30/16 05:27 CMP Sodium 132 mmol/L (136-145) L 06/30/16 05:27 Potassium 3.9 mmol/L (3.5-5.1) 06/30/16 05:27 Chloride 89 mmol/L (98-107) L 06/30/16 05:27 Carbon Dioxide 31 mmol/L (21-32) 06/30/16 05:27 Anion Gap 12 (8-16) 06/30/16 05:27 BUN 31 mg/dL (7-18) H 06/30/16 05:27 Creatinine 0.9 mg/dL (0.7-1.3) D 06/30/16 05:27 Creat Clearance w eGFR > 60 (>60) 06/30/16 05:27 Random Glucose 83 mg/dL (74-106) D 06/30/16 05:27 Calcium 7.3 mg/dL (8.5-10.1) L 06/30/16 05:27 Total Bilirubin 0.5 mg/dL (0.2-1.0) D 06/30/16 05:27 AST 26 U/L (15-37) D 06/30/16 05:27 ALT 16 U/L (12-78) D 06/30/16 05:27 Alkaline Phosphatase 347 U/L (45-117) H 06/30/16 05:27 Total Protein 5.6 g/dl (6.4-8.2) L 06/30/16 05:27 Albumin 2.1 g/dl (3.4-5.0) L 06/30/16 05:27 CARDIAC ENZYMES Creatine Kinase 292 IU/L (39-308) 06/30/16 05:27 Troponin I 0.02 ng/ml (0.00-0.05) 06/30/16 05:27 Current Medications Generic Name Dose Route Start Last Admin Trade Name Freq PRN Reason Stop Dose Admin Acetaminophen 650 mg 06/27/16 22:41 06/29/16 15:40 Tylenol - PO 650 mg Q6H PRN Administration FEVER OR PAIN Atorvastatin Calcium 40 mg 06/30/16 22:00 Lipitor - PO [facility] Ciprofloxacin 2 drop 06/25/16 00:30 06/30/16 06:34 Ciloxan 0.3% Eye Drops - OU 2 drop Q6HPO MI Administration Furosemide 40 mg 06/28/16 10:10 06/30/16 06:35 Lasix Injection - IVPUSH Not Given BID@0600,1400 [facility] Heparin Sodium (Porcine) 5,000 unit 06/30/16 10:00 06/30/16 09:29 Heparin - SQ 5,000 unit BID [facility] Administration Cefazolin Sodium 50 mls @ 100 mls/hr 06/29/16 11:15 06/30/16 09:29 Ancef 1gm Ivpb (Pre-Docked) IVPB 100 mls/hr Q8H-IV MI Administration Insulin Aspart 1 vial 06/30/16 11:00 Novolog Vial Sliding Scale - SQ TIDAC [facility] Protocol Insulin Detemir 5 units 06/26/16 07:00 06/30/16 06:45 Levemir Vial SQ 5 units AM [facility] Administration Nystatin 1 applic 06/24/16 14:15 06/29/16 09:12 Nystop Powder - TP 1 applic DAILY [facility] Administration Spironolactone 25 mg 06/24/16 19:00 06/30/16 09:29 Aldactone - PO 25 mg DAILY IM Administration Home Medications Medication Instructions Recorded Enalapril Maleate 5 mg PO DAILY 06/22/16 Insulin Detemir [Levemir Flextouch] 20 unit SQ DAILY 06/22/16 Simvastatin 40 mg PO HS 06/22/16 Microbiology 06/28/16 01:30 Wound Gram Stain - Final 06/28/16 01:30 Wound Wound Culture - Preliminary Staphylococcus Aureus 06/28/16 00:05 Blood - Peripheral Venous Blood Culture - Final Staphylococcus Aureus 06/28/16 00:05 Blood - Peripheral Venous Blood Culture - Preliminary Presumptive Mssa (Pbp2a Neg) 06/22/16 19:30 Nasopharyngeal Swab Respiratory Virus Panel - Preliminary 06/23/16 10:55 Urine - Urine - Catheterized Urine Culture - Final NO GROWTH OBTAINED 06/22/16 19:30 Nasopharyngeal Swab Influenza Types A,B Antigen (ISACC) - Final 06/22/16 19:30 Nasopharyngeal Swab - Final ECHO: LV systolic function severely reduced, severe global hypokinesis ASSESSMENT AND PLAN: Patient is a 85yo M with PMHx DM, HTN and dyslipidemia presented to the ER for Acute hypoglycemia and was admitted for further evaluation of their emergent condition. # Acute systolic/diastolic CHF exacerbation , Lasix is on Hold since patient developed acute hypotension and was started on IV Jerome-synephrine ggt, off the drip for now, once more stable will restart his IV lasix will reduce the rate to 20mg IV BID. # Acute bacteremia staph aureus (MSSA) ID on the case, started the patient on IV nafcillin 2gm IVPB q4h. s/p vancomycin,ancef #Catheter-related phlebitis of LUE anticubital area / with an abscess not draining at this time will continue warm compressors , Dr.Nirav Joe (Vascular surgeon) seen the patient, Nothing to be done surgical glass ,just to add warm compressors. # s/p VTs but no VTs overnight on the monitor , ( Electric Meter Setter) seen the patient, need to call him in am to arrange lifevest defibrillator upon discharge and EF needs to be re-evaluated in 3 months period . discussed the plan with (as per ; the produce laborer on the case didn't want to Tx the patient to another facility until patient gets stress test done in the hospital to check whether ischemic or not). As per 's note, patient is not a candidate for any catheterization at this time due to his bacteremia. # Severe global hypokinesis with severely reduced LV systolic function ; Persantine thalium stress test was cancelled due to having low blood pressure, possible on Dobutamine stress test once patient is more stable. [employer] on the case. # Acute Hypoglycema improved ; hemoglobin A1c 10.8. will place her on levemir 5 units for consult. # DEBBIE ,resolved 1.2 -->0.9 today # Acute hyponatremia looks like dilutional due to his CHF DVT px- hep sq; PT evaluation
--- NOTE | 2016-06-30 10:52 | PN ---
Progress Note, Physician History of Present Illness: Transferred to ICU after hypotension, rapid response Awake, responsive No focal complaint Afebrile MSSA - Current Medication List Current Medications: Active Medications Acetaminophen (Tylenol -) 650 mg PO Q6H PRN PRN Reason: FEVER OR PAIN Last Admin: 06/29/16 15:40 Dose: 650 mg Atorvastatin Calcium (Lipitor -) 40 mg PO HS MI Ciprofloxacin (Ciloxan 0.3% Eye Drops -) 2 drop OU Q6HPO [facility] Last Admin: 06/30/16 06:34 Dose: 2 drop Furosemide (Lasix Injection -) 40 mg IVPUSH BID@0600,1400 [facility] Last Admin: 06/30/16 06:35 Dose: Not Given Heparin Sodium (Porcine) (Heparin -) 5,000 unit SQ BID [facility] Last Admin: 06/30/16 09:29 Dose: 5,000 unit Cefazolin Sodium (Ancef 1gm Ivpb (Pre-Docked)) 50 mls @ 100 mls/hr IVPB Q8H-IV [facility] Last Admin: 06/30/16 09:29 Dose: 100 mls/hr Insulin Aspart (Novolog Vial Sliding Scale -) 1 vial SQ TIDAC [facility] PRN Reason: Protocol Insulin Detemir (Levemir Vial) 5 units SQ AM [facility] Last Admin: 06/30/16 06:45 Dose: 5 units Nystatin (Nystop Powder -) 1 applic TP DAILY [facility] Last Admin: 06/29/16 09:12 Dose: 1 applic Spironolactone (Aldactone -) 25 mg PO DAILY [facility] Last Admin: 06/30/16 09:29 Dose: 25 mg - Objective Vital Signs: Vital Signs Temperature 98.0 F 06/30/16 06:32 Pulse Rate 60 06/30/16 10:00 Respiratory Rate 14 06/30/16 10:00 Blood Pressure 104/53 06/30/16 10:00 O2 Sat by Pulse Oximetry (%) 100 06/30/16 09:00 Constitutional: Yes: No Distress Eyes: Yes: Conjunctiva Clear Cardiovascular: Yes: Regular Rate and Rhythm, S1, S2 Respiratory: Yes: CTA Bilaterally Gastrointestinal: Yes: Normal Bowel Sounds, Soft, Abdomen, Obese. No: Tenderness Extremities: Yes: Other (+ induration/ swelling, erythema, tenderness L antecubital fossa) Labs: CBC, BMP 06/30/16 05:27 06/30/16 05:27 INR, PTT INR 1.26 (0.82-1.09) H 06/22/16 15:19 Assessment/Plan Catheter- related phlebitis/ cellulitis/ abscess L antecubital fossa + Blood c/s MSSA Substitute nafcillin 2gm IVPB q4h Repeat BC am
[2016-06-30] MEDS: NAFCILLIN - 2 GM in DEXTROSE 5%-WATER - 100 ML IVPB SCH ×3 (11:13→21:27)
[2016-06-30] MEDS: NYSTATIN POWDER 100,000 UNITS/GM - 15 GM TOPICAL POWDER TP SCH (11:13)
[2016-06-30] MEDS ORDERED: PT OWN MED DRAWER 7, Y5N ONE ×3 (13:34→20:43)
--- NOTE | 2016-06-30 19:57 | PN ---
Progress Note (short form) - Note Progress Note: Events noted Transferred to ICU b/o hypotension Blood sugar stable Vital Signs Period Temp Pulse Resp BP Sys/Arboleda Pulse Ox Last 24 Hr 97.6 F-98.2 F 54-66 14-24 88-104/53-64 98-100 PE: Awake alert HEENT: PERRL, EOMI Neck: Supple, No JVD Lungs: CTA CVS: S1S2 Abd: Benign EXt: + edema Neuro: No focal deficit CMP Sodium 132 mmol/L (136-145) L 06/30/16 05:27 Potassium 3.9 mmol/L (3.5-5.1) 06/30/16 05:27 Chloride 89 mmol/L (98-107) L 06/30/16 05:27 Carbon Dioxide 31 mmol/L (21-32) 06/30/16 05:27 Anion Gap 12 (8-16) 06/30/16 05:27 BUN 31 mg/dL (7-18) H 06/30/16 05:27 Creatinine 0.9 mg/dL (0.7-1.3) D 06/30/16 05:27 Creat Clearance w eGFR > 60 (>60) 06/30/16 05:27 POC Glucometer 167.21789 UNITS (()) 06/30/16 15:58 Random Glucose 83 mg/dL (74-106) D 06/30/16 05:27 Hemoglobin A1c % 10.8 % (4.8-6.0) H 06/23/16 06:30 Free Insulin 4.7 uU/mL (.) 06/23/16 06:30 Total Insulin 4.7 uU/mL (.) 06/23/16 06:30 Lactic Acid 1.103 mmol/L (0.4-2.0) 06/29/16 18:50 Calcium 7.3 mg/dL (8.5-10.1) L 06/30/16 05:27 Phosphorus 3.4 mg/dL (2.5-4.9) D 06/29/16 06:00 Magnesium 2.0 mg/dL (1.8-2.4) 06/30/16 05:27 Total Bilirubin 0.5 mg/dL (0.2-1.0) D 06/30/16 05:27 AST 26 U/L (15-37) D 06/30/16 05:27 ALT 16 U/L (12-78) D 06/30/16 05:27 Alkaline Phosphatase 347 U/L (45-117) H 06/30/16 05:27 Creatine Kinase 292 IU/L (39-308) 06/30/16 05:27 Creatine Kinase Index 2.4 % (0.0-5.0) 06/22/16 15:19 CK-MB (CK-2) 1.097 ng/ml (0.5-3.6) 06/29/16 18:50 CK-MB (CK-2) Rel Index Cancelled 06/22/16 15:19 Troponin I 0.02 ng/ml (0.00-0.05) 06/30/16 05:27 B-Natriuretic Peptide 8222.24 pg/ml (5-450) H 06/22/16 16:21 Total Protein 5.6 g/dl (6.4-8.2) L 06/30/16 05:27 Albumin 2.1 g/dl (3.4-5.0) L 06/30/16 05:27 Triglycerides 51 mg/dL (35-160) 06/23/16 06:30 Cholesterol 108 mg/dL (50-200) 06/23/16 06:30 Total LDL Cholesterol 27 mg/dl 06/23/16 06:30 HDL Cholesterol 71 mg/dL (40-60) H 06/23/16 06:30 TSH 5.33 uIU/ml (0.358-3.74) H D 06/28/16 05:38 Free T4 1.14 ng/dl (0.76-1.16) 06/23/16 06:30 Current Medications Generic Name Dose Route Start Last Admin Trade Name Freq PRN Reason Stop Dose Admin Acetaminophen 650 mg 06/27/16 22:41 06/29/16 15:40 Tylenol - PO 650 mg Q6H PRN Administration FEVER OR PAIN Atorvastatin Calcium 40 mg 06/30/16 22:00 Lipitor - PO HS MI Ciprofloxacin 2 drop 06/25/16 00:30 06/30/16 13:38 Ciloxan 0.3% Eye Drops - OU 2 drop Q6HPO MI Administration Furosemide 40 mg 06/28/16 10:10 06/30/16 13:37 Lasix Injection - IVPUSH 40 mg BID@0600,1400 MI Administration Heparin Sodium (Porcine) 5,000 unit 06/30/16 10:00 06/30/16 09:29 Heparin - SQ 5,000 unit BID MI Administration Nafcillin Sodium 2 gm/ 100 mls @ 100 mls/hr 06/30/16 11:00 06/30/16 17:12 Dextrose IVPB 100 mls/hr Q4H-IV MI Administration Protocol Insulin Aspart 1 vial 06/30/16 11:00 06/30/16 16:04 Novolog Vial Sliding Scale - SQ Not Given TIDAC [facility] Protocol Insulin Detemir 5 units 06/26/16 07:00 06/30/16 06:45 Levemir Vial SQ 5 units AM MI Administration Nystatin 1 applic 06/24/16 14:15 06/30/16 11:13 Nystop Powder - TP 1 applic DAILY MI Administration Spironolactone 25 mg 06/24/16 19:00 06/30/16 09:29 Aldactone - PO 25 mg DAILY MI Administration AP: Hypotension Left antecubital fossa cellulitis ?abscess Hypoglycemia T2DM HTN CHF HLD Abnormal TFT Transferred to ICU: Off vasopressors now IV abx Nafcillin, Cipro Hypoglycemia sec to prolonged action of Glipizide and poor food intake. Blood sugar stable on current Insulin regimen BGM QACHS Levemir 5 units daily in a.m. and Novolog SS Change Insulin dose as necessary No Glipizide now No Metformin b/o decompensated CHF Repeat TSH 5.33, no need for LT4 replacement at this point Most patient with abnormal TFT during hospitalization have normal levels after discharge Repeat TFT as outpt. Will F/U
[2016-06-30] MEDS ORDERED: ATORVASTATIN CA 40 MG TABLET (FP) PO SCH (22:00)
--- NOTE | 2016-07-01 00:08 | EKG ---
Test Reason : Blood Pressure : / mmHG Vent. Rate : 059 BPM Atrial Rate : 059 BPM P-R Int : 192 ms QRS Dur : 088 ms QT Int : 446 ms P-R-T Axes : 018 -42 070 degrees QTc Int : 441 ms SINUS BRADYCARDIA WITH OCCASIONAL PREMATURE VENTRICULAR COMPLEXES LEFT AXIS DEVIATION LOW VOLTAGE QRS CANNOT RULE OUT ANTERIOR INFARCT (CITED ON OR BEFORE 22-JUN-2016) ABNORMAL ECG WHEN COMPARED WITH ECG OF 22-JUN-2016 17:09, PREMATURE VENTRICULAR COMPLEXES ARE NOW PRESENT VENT. RATE HAS DECREASED BY 40 BPM T WAVE INVERSION NOW EVIDENT IN ANTERIOR LEADS Confirmed by BHARGAV EM MD ([id number]) on 07/01/2016 12:07:38 AM Referred By: CATRINA Confirmed By:BHARGAV EM MD
[2016-07-01] MEDS: NAFCILLIN - 2 GM in DEXTROSE 5%-WATER - 100 ML IVPB SCH ×7 (01:10→21:46)
[2016-07-01] MEDS: CIPROFLOXACIN HCL 0.3% OPHTH 2.5ML BOTTLE OU SCH ×3 (05:31→17:05)
[2016-07-01 06:12] LABS: MCHC 32.9 g/dl (32.0-35.9); MEAN CELL VOLUME 88.3 fl (80-96); MEAN PLT VOLUME 9.3 fl (7.5-11.1); PLATELET COUNT 157 K/MM3 (134-434); RDW 14.6 % (11.9-15.9); WHITE BLOOD COUNT 8.4 K/mm3 (4.0-10.0)
[2016-07-01] MEDS: FUROSEMIDE 40 MG/4 ML INJECTABLE VIAL IVPUSH SCH (06:49)
[2016-07-01] MEDS: INSULIN SLIDING SCALE (NOVOLOG) 1 VIAL SQ SCH ×3 (06:51→16:17)
[2016-07-01] MEDS: INSULIN DETEMIR 100 UNITS/ML MDV SQ SCH (06:54)
[2016-07-01 06:57] LABS: ALBUMIN 1.9 g/dl (3.4-5.0); ANION GAP 10 (8-16); CALCIUM 7.3 mg/dL (8.5-10.1); CO2 34 mmol/L (21-32); GLUCOSE,RANDOM 151 mg/dL (74-106); MAGNESIUM 2.1 mg/dL (1.8-2.4)
[2016-07-01 07:03] LABS: ALK PHOS 363 U/L (45-117); BILIRUBIN,TOTAL 0.9 mg/dL (0.2-1.0); COCKROFT - GAULT 68.86; CREATININE 0.8 mg/dL (0.7-1.3); PHOSPHOROUS 2.9 mg/dL (2.5-4.9); SGOT/AST 21 U/L (15-37); SGPT/ALT 8 U/L (12-78); TOT PROT 5.3 g/dl (6.4-8.2)
[2016-07-01] MEDS ORDERED: ALTEPLASE 2 MG VIAL IVPUSH ONE (07:09)
--- NOTE | 2016-07-01 07:55 | PN ---
Physical Exam: SUBJECTIVE: Patient seen and examined at bed side in ICU. NAD, feels much better than yesterday. denies, fevers, chills,N/V/D, Cp, palpitations, sob. Left arm induration and swelling has increased significantly since this am. Sent patient for CT arm to r/o Gas or abscess. and vascular consult. Borderline hypotensive. Stress test today, OBJECTIVE: Vital Signs Period Temp Pulse Resp BP Sys/Arboleda Pulse Ox Last 24 Hr 97.7 F-98.7 F 58-67 14-24 92-107/49-62 98-100 GENERAL: Awake, alert, and fully oriented, in no acute distress. HEAD: Normal with no signs of trauma. EYES: extraocular movements intact, sclera anicteric, conjunctiva clear. EARS, NOSE, THROAT: oropharynx clear without exudates. Moist mucous membranes. NECK: supple mild JVD, LUNGS: good air entry bilaterally, decreased BS at baseses, bibasilar crackles HEART: distant heart sounds, Regular rate and rhythm, normal S1 and S2. no murmur appreciated. ABDOMEN: Soft, nontender, mod distended distended, globally reduced bowel sounds , no abd edema MUSCULOSKELETAL: No CVA tenderness. UPPER EXTREMITIES: 2+ pulses, warm, well-perfused. No cyanosis. No clubbing. No peripheral edema. LOWER EXTREMITIES: not palpable pulses, cool, 1+ pitting edema, improved from yesterday. NEUROLOGICAL: Cranial nerves II-XII intact. Normal speech. strength 4+/5 , 1+ reflexes upper and lower extremities, PSYCHIATRIC: Cooperative. Good eye contact. Appropriate mood and affect. SKIN: Warm, dry, Left arm induration, swelling, erythema has increased significantly since this am, induration and swelling 10ccmx 14 cm irregular borders. Laboratory Results - last 24 hr 06/30/16 06/30/16 06/30/16 05:27 11:02 15:58 WBC RBC Hgb Hct MCV MCHC RDW Plt Count MPV Sodium Potassium Chloride Carbon Dioxide Anion Gap BUN Creatinine Creat Clearance w eGFR POC Glucometer 134.05677 167.62322 Random Glucose Calcium Phosphorus Magnesium Total Bilirubin AST ALT Alkaline Phosphatase CK-MB (CK-2) Rel Index Cancelled Total Protein Albumin 07/01/16 07/01/16 07/01/16 05:20 05:20 05:47 WBC 8.4 RBC 3.64 L Hgb 10.6 L Hct 32.2 L MCV 88.3 MCHC 32.9 RDW 14.6 Plt Count 157 D MPV 9.3 Sodium 133 L Potassium 4.0 Chloride 89 L Carbon Dioxide 34 H Anion Gap 10 BUN 29 H Creatinine 0.8 Creat Clearance w eGFR > 60 POC Glucometer 188.92346 Random Glucose 151 H D Calcium 7.3 L Phosphorus 2.9 Magnesium 2.1 Total Bilirubin 0.9 D AST 21 ALT 8 L D Alkaline Phosphatase 363 H CK-MB (CK-2) Rel Index Total Protein 5.3 L Albumin 1.9 L Active Medications Generic Name Dose Route Start Last Admin Trade Name Freq PRN Reason Stop Dose Admin Acetaminophen 650 mg 06/27/16 22:41 06/29/16 15:40 Tylenol - PO 650 mg Q6H PRN Administration FEVER OR PAIN Atorvastatin Calcium 40 mg 06/30/16 22:00 06/30/16 21:33 Lipitor - PO 40 mg HS MI Administration Ciprofloxacin 2 drop 06/25/16 00:30 07/01/16 05:31 Ciloxan 0.3% Eye Drops - OU 2 drop Q6HPO MI Administration Furosemide 40 mg 06/28/16 10:10 07/01/16 06:49 Lasix Injection - IVPUSH Not Given BID@0600,1400 [facility] Heparin Sodium (Porcine) 5,000 unit 06/30/16 10:00 06/30/16 21:28 Heparin - SQ 5,000 unit BID MI Administration Nafcillin Sodium 2 gm/ 100 mls @ 100 mls/hr 06/30/16 11:00 07/01/16 05:32 Dextrose IVPB 100 mls/hr Q4H-IV MI Administration Protocol Insulin Aspart 1 vial 06/30/16 11:00 07/01/16 06:51 Novolog Vial Sliding Scale - SQ Not Given TIDAC [facility] Protocol Insulin Detemir 5 units 06/26/16 07:00 07/01/16 06:54 Levemir Vial SQ 5 units AM MI Administration Nystatin 1 applic 06/24/16 14:15 06/30/16 11:13 Nystop Powder - TP 1 applic DAILY MI Administration Spironolactone 25 mg 06/24/16 19:00 06/30/16 09:29 Aldactone - PO 25 mg DAILY MI Administration Continue IV Lasix today and anticipate conversion to PO tomorrow morning Will need picc line placement prior to discharge for assisted antibiotic treatment Will follow blood cultures See resident note for full details Microbiology 06/22/16 19:30 Nasopharyngeal Swab Respiratory Virus Panel - Final 06/28/16 00:05 Blood - Peripheral Venous Blood Culture - Final Staphylococcus Aureus 06/28/16 01:30 Wound Gram Stain - Final 06/28/16 01:30 Wound Wound Culture - Final Staphylococcus Aureus 06/28/16 00:05 Blood - Peripheral Venous Blood Culture - Final Staphylococcus Aureus 06/23/16 10:55 Urine - Urine - Catheterized Urine Culture - Final NO GROWTH OBTAINED 06/22/16 19:30 Nasopharyngeal Swab Influenza Types A,B Antigen (ISACC) - Final 06/22/16 19:30 Nasopharyngeal Swab - Final ASSESSMENT/PLAN: 85 y/o gentleman with h/o IDDM , and HTN, who lives with daughter . He was lynnette here after being found unresponsive and was found to be in Heart failure and hypoglycemia. Acute decompensated CHF: Awaiting dobutamine stress test: EF 34%. small zone of infero lateral fixed defect compatible with diaphragmatic attenuation. -likely due to CAD; admission BNP 8222 and congested CXR. -EKG L axis, 1 degree av block, poor rv progression, sonspecif t flattening in inferolateral leads, no ACS -TTE severely reduced EF, global LV hypokinesis -PO lasix BID -enalapril, aldactone, coreg, as BP tolerates. -asa 81 d -monitor urine output, creatinine -O2 to keep SpO2 >90% -cardiology on board, will fit for life vest tomorrow MSSA bacteremia with phlebitis: Gram Positive bacteremia. Left antecubital phlebitis/abscess. blood MSSA. nafcillin abx day 4 f/u gram culture, -warm compresses to area. c/u CT for r/o gas less likely from MSSA organism, possible abscess. If abscess, vascular will I and D tomorrow. discussed with ID and recommends for vascular to be notified. ID and Vascular made aware. Warm compresses and elevation of Left arm per Vascular surgery. Hypoglycemia: Resolved IDDM: A1c = 10.8 uncontrolled levemir 5 u AMISS -BGM TIDAC subclinical vs sick Hypothyroid-TSH 5.33 -free t4 wnl -follow up as outpatient HTN: hold Meds. HLD:Lipitor PAD -arterial duplex looks like L sfa, R and L pop disease, hold cath until treated for bacteremia -vascular f/u outpatient. Prophylaxes DVT: heparin units sq tid Prophylaxes GI: not indicated at this time. FEN -Diabetic Na restricted diet -strict I/O, fluid restriction -replete electrolytes as needed -Diabetic Na restricted diet Dispo: transfer to tele floor. Visit type - Emergency Visit Emergency Visit: Yes ED Registration Date: 06/22/16 Care time: The patient presented to the Emergency Department on the above date and was hospitalized for further evaluation of their emergent condition. - New Patient This patient is new to me today: Yes Date on this admission: 06/22/16 - Critical Care Critical Care patient: Yes Total Critical Care Time (in minutes): 53 Critical Care Statement: The care of this patient involved high complexity decision making to prevent further life threatening deterioration of the patient 's condition and/or to evalute & treat vital organ system(s) failure or risk of failure.
[2016-07-01] MEDS ORDERED: PT OWN MED DRAWER 7, Y5N ONE ×3 (08:49→17:00)
[2016-07-01] MEDS ORDERED: ACETAMINOPHEN 325 MG TABLET (FP) PO PRN (09:19)
[2016-07-01] MEDS: HEPARIN NA (PORCINE) 5,000 UNITS/ML 1ML VIAL SQ SCH ×2 (09:48→21:45)
[2016-07-01] MEDS: SPIRONOLACTONE 25 MG TABLET (FP) PO SCH (09:48)
[2016-07-01] MEDS: NYSTATIN POWDER 100,000 UNITS/GM - 15 GM TOPICAL POWDER TP SCH (09:49)
[2016-07-01] MEDS ORDERED: DOBUTAMINE HCL 100,000 MCG in DEXTROSE 5%-WATER - 92 ML IVPB ONE (10:00)
--- NOTE | 2016-07-01 10:44 | PN ---
Progress Note, Physician Chief Complaint: ID Nafcillin - Current Medication List Current Medications: Active Medications Acetaminophen (Tylenol -) 650 mg PO Q6H PRN PRN Reason: FEVER OR PAIN Atorvastatin Calcium (Lipitor -) 40 mg PO HS [facility] Ciprofloxacin (Ciloxan 0.3% Eye Drops -) 2 drop OU Q6HPO MI Furosemide (Lasix Injection -) 40 mg IVPUSH BID@0600,1400 MI Heparin Sodium (Porcine) (Heparin -) 5,000 unit SQ BID [facility] Last Admin: 07/01/16 09:48 Dose: 5,000 unit Nafcillin Sodium 2 gm/ (Dextrose) 100 mls @ 100 mls/hr IVPB Q4H-IV MI PRN Reason: Protocol Last Admin: 07/01/16 09:48 Dose: 100 mls/hr Dobutamine HCl 100,000 mcg/ (Dextrose) 100 mls @ 21.63 mls/hr IVPB ONCE ONE; 5 MCG/KG/MIN PRN Reason: Protocol Stop: 07/01/16 14:37 Insulin Aspart (Novolog Vial Sliding Scale -) 1 vial SQ TIDAC [facility] PRN Reason: Protocol Insulin Detemir (Levemir Vial) 5 units SQ AM [facility] Nystatin (Nystop Powder -) 1 applic TP DAILY [facility] Last Admin: 07/01/16 09:49 Dose: 1 applic Spironolactone (Aldactone -) 25 mg PO DAILY [facility] Last Admin: 07/01/16 09:48 Dose: 25 mg - Objective Vital Signs: Vital Signs Temperature 99.2 F 07/01/16 09:48 Pulse Rate 67 07/01/16 09:55 Respiratory Rate 20 07/01/16 09:00 Blood Pressure 99/59 07/01/16 10:23 O2 Sat by Pulse Oximetry (%) 100 07/01/16 09:55 Cardiovascular: Yes: Regular Rate and Rhythm, S1, S2 Respiratory: Yes: WNL, Regular, CTA Bilaterally Gastrointestinal: Yes: WNL, Normal Bowel Sounds, Soft Extremities: Yes: Other (phlebitis) Labs: CBC, BMP 07/01/16 05:20 07/01/16 05:20 INR, PTT INR 1.26 (0.82-1.09) H 06/22/16 15:19 Assessment/Plan Microbiology 06/28/16 01:30 Wound Gram Stain - Final 06/28/16 01:30 Wound Wound Culture - Final Staphylococcus Aureus 06/28/16 00:05 Blood - Peripheral Venous Blood Culture - Final Staphylococcus Aureus 06/28/16 00:05 Blood - Peripheral Venous Blood Culture - Final Staphylococcus Aureus Laboratory Tests 07/01/16 07/01/16 05:20 05:20 WBC 8.4 Hgb 10.6 L Hct 32.2 L Plt Count 157 D BUN 29 H Creatinine 0.8 Creat Clearance w eGFR > 60 Assessment MSSA bacteremia with phlebitis Plan Recent ECHO no vegetation Blood cultures pending ESR CRP Ousmane BLANCHARD
[2016-07-01] MEDS ORDERED: PICC LINE 8 ML FLUSH PROTOCOL IVPUSH PRN (10:49)
--- NOTE | 2016-07-01 10:57 | PN ---
Teaching Attending Note Name of Resident: Devika Eric ATTENDING PHYSICIAN STATEMENT I saw and evaluated the patient. I reviewed the resident's note and discussed the case with the resident. I agree with the resident's findings and plan as documented. SUBJECTIVE: He is comfortable and without complaint. OBJECTIVE: Vitals noted ASSESSMENT AND PLAN: Much improved Appreciate customer relations consultant care and input Can be transfered to Telemetry Anticipate stress test today To be fitted with life vest Friday Continue IV Lasix today and anticipate conversion to PO tomorrow morning Will need picc line placement prior to discharge for half-way antibiotic treatment Will follow blood cultures See resident note for full details
--- NOTE | 2016-07-01 13:14 | PN ---
Addendum entered and electronically signed by Devika Eric RES 07/01/16 15: 48: dobutamine stress test: ef 34%. small zone of inferolat fixed defect compatible with diaphragmatic attenuation patients L antecubital abscess increased in size, erythema marked. vascular and ID called Original Note: Physical Exam: SUBJECTIVE: Patient seen and examined Resting in bed NAD. afebrile and hemodynamically stable. BG mid 100's-low 200' s. feels well. good appetite. dobutamine stress test done this am. no sob, weakness, dizziness, cough, chest pain, n/v or h/a. OBJECTIVE: Vital Signs Period Temp Pulse Resp BP Sys/Arboleda Pulse Ox Last 24 Hr 97.7 F-99.2 F 60-69 18-24 92-133/49-62 100-100 GENERAL: Awake, alert, and fully oriented, in no acute distress. HEAD: Normal with no signs of trauma. EYES: Pupils equal, round and reactive to light, extraocular movements intact, sclera anicteric, conjunctiva clear. No lid lag. EARS, NOSE, THROAT: oropharynx clear without exudates. Moist mucous membranes. NECK: supple mild JVD, LUNGS: bibasilar crackles improved HEART: Regular rate and rhythm, normal S1 and S2 grade 2 systolic murmur, PMI deviated left ABDOMEN: Soft, nontender, mod distended distended, globally reduced bowel sounds , no abd edema MUSCULOSKELETAL: No CVA tenderness. UPPER EXTREMITIES: 2+ pulses, warm, well-perfused. No cyanosis. No clubbing. No peripheral edema. LOWER EXTREMITIES: not palpable pulses, cool, 1+ pitting edema, improved from yesterday. NEUROLOGICAL: Cranial nerves II-XII intact. Normal speech. strength 4+/5 , 1+ reflexes upper and lower extremities, PSYCHIATRIC: Cooperative. Good eye contact. Appropriate mood and affect. SKIN: Warm, dry Laboratory Results - last 24 hr 06/30/16 07/01/16 07/01/16 15:58 05:20 05:20 WBC 8.4 RBC 3.64 L Hgb 10.6 L Hct 32.2 L MCV 88.3 MCHC 32.9 RDW 14.6 Plt Count 157 D MPV 9.3 Sodium 133 L Potassium 4.0 Chloride 89 L Carbon Dioxide 34 H Anion Gap 10 BUN 29 H Creatinine 0.8 Creat Clearance w eGFR > 60 POC Glucometer 167.83038 Random Glucose 151 H D Calcium 7.3 L Phosphorus 2.9 Magnesium 2.1 Total Bilirubin 0.9 D AST 21 ALT 8 L D Alkaline Phosphatase 363 H Total Protein 5.3 L Albumin 1.9 L 07/01/16 05:47 WBC RBC Hgb Hct MCV MCHC RDW Plt Count MPV Sodium Potassium Chloride Carbon Dioxide Anion Gap BUN Creatinine Creat Clearance w eGFR POC Glucometer 188.20752 Random Glucose Calcium Phosphorus Magnesium Total Bilirubin AST ALT Alkaline Phosphatase Total Protein Albumin Active Medications Generic Name Dose Route Start Last Admin Trade Name Freq PRN Reason Stop Dose Admin Acetaminophen 650 mg 07/01/16 09:19 Tylenol - PO Q6H PRN FEVER OR PAIN Atorvastatin Calcium 40 mg 07/01/16 22:00 Lipitor - PO HS MI Ciprofloxacin 2 drop 07/01/16 12:00 07/01/16 12:47 Ciloxan 0.3% Eye Drops - OU 2 drop Q6HPO MI Administration Furosemide 40 mg 07/01/16 14:00 Lasix Injection - IVPUSH BID@0600,1400 MI Heparin Sodium (Porcine) 5,000 unit 07/01/16 10:00 07/01/16 09:48 Heparin - SQ 5,000 unit BID MI Administration IV Flush 8 ml 07/01/16 10:49 Picc Line Flush IVPUSH PRN PRN Protocol Nafcillin Sodium 2 gm/ 100 mls @ 100 mls/hr 07/01/16 10:00 07/01/16 09:48 Dextrose IVPB 100 mls/hr Q4H-IV MI Administration Protocol Dobutamine HCl 100,000 mcg/ 100 mls @ 21.63 mls/hr 07/01/16 10:00 07/01/16 11: 30 Dextrose IVPB 07/01/16 14:37 21.63 mls/hr ONCE ONE Administration Protocol 5 MCG/KG/MIN Insulin Aspart 1 vial 07/01/16 11:00 07/01/16 12:48 Novolog Vial Sliding Scale - SQ Not Given [facility] Protocol Insulin Detemir 5 units 07/02/16 07:00 Levemir Vial SQ AM MI Nystatin 1 applic 07/01/16 10:00 07/01/16 09:49 Nystop Powder - TP 1 applic DAILY MI Administration Spironolactone 25 mg 07/01/16 10:00 07/01/16 09:48 Aldactone - PO 25 mg DAILY MI Administration ASSESSMENT/PLAN: This is an 85 yo M with PMH of IDDM, HTN, HLD, who BBEMS after being found unresponsive by . [place] his BG was 23 and increased to 66 after d50 at which time he regained consciousness with baseline mental status. Acute decompensated CHF -likely due to CAD; admission BNP 8222 and congested CXR -EKG L axis, 1 degree av block, poor rv progression, sonspecif t flattening in inferolateral leads, no ACS -TTE severely reduced EF, global LV hypokinesis -awaiting dobitamine stress test result. -evaluated by cardiology -evaluated by EP -switch to PO lasix for second dose. will be on 40 PO bid -restart enalapril 5 tomorrow. restart coreg 12.5 today -aldactone 25 d -asa 81 d -not a cath candidate bc bacteremic. will optimize medically and send home with zoll defibrillator vest, rep contacted to come in tomorrow -cont PT Gram Positive bacteremia -source Left antecubital phlebitis/abscess -gram culture, blood MSSA -ID: nafcillin abx day 4 -redraw bloods to show clearance -warm compresses to area -Picc line today or tomorrow for possible dc tomorrow Hypoglycemia -due to anorexia associated with chf and liver congestion, slowed glipizide metabolism -resolved IDDM -poorly controlled, A1c = 10.8 -on d/c will stop glipizide 10 d, metformin 100bid, levemir 20 d -BGM TIDAC -sliding scale -levemir 5 u AM -Diabetic Na restricted diet subclinical vs sick Hypothyroid -TSH 5.33 -free t4 wnl -no treatment indicated HTN -meds as above HLD -atorvastatin 40 hs Suspect PAD -arterial duplex looks like L sfa, R and L pop disease, hold cath until treated for bacteremia -vascular f/u outpatient. FEN no ivf optimize k and mag Diabetic na restricted diet Dispo xfer to telemetry Problem List - Problems (1) CHF (congestive heart failure) Code(s): I50.9 - HEART FAILURE, UNSPECIFIED Qualifiers: Congestive heart failure type: unspecified congestive heart failure type Congestive heart failure chronicity: acute Qualified Code(s): I50.9 - Heart failure, unspecified (2) Hypoglycemia Code(s): E16.2 - HYPOGLYCEMIA, UNSPECIFIED (3) Hypothyroid Code(s): E03.9 - HYPOTHYROIDISM, UNSPECIFIED Qualifiers: Hypothyroidism type: unspecified Qualified Code(s): E03.9 - Hypothyroidism, unspecified (4) Insulin dependent diabetes mellitus Code(s): E11.9 - TYPE 2 DIABETES MELLITUS WITHOUT COMPLICATIONS Z79.4 - SHELTER (CURRENT) USE OF INSULIN (5) HLD (hyperlipidemia) Code(s): E78.5 - HYPERLIPIDEMIA, UNSPECIFIED (6) HTN (hypertension) Code(s): I10 - ESSENTIAL (PRIMARY) HYPERTENSION (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 - New Patient This patient is new to me today: No - Critical Care Critical Care patient: Yes Total Critical Care Time (in minutes): 45 Critical Care Statement: The care of this patient involved high complexity decision making to prevent further life threatening deterioration of the patient 's condition and/or to evalute & treat vital organ system(s) failure or risk of failure. - Discharge Referral Referred to [facility] Med [facility] No
[2016-07-01] MEDS ORDERED: CARVEDILOL 6.25 MG TABLET (FP) PO ONE ×2 (13:23→16:47)
[2016-07-01] MEDS ORDERED: FUROSEMIDE 40 MG/4 ML INJECTABLE VIAL IVPUSH SCH (14:00)
[2016-07-01] MEDS: FUROSEMIDE 40 MG TABLET (FP) PO SCH (14:08)
--- NOTE | 2016-07-01 14:39 | PN ---
Teaching Attending Note Name of Resident: Stefanie El ATTENDING PHYSICIAN STATEMENT I saw and evaluated the patient. I reviewed the resident's note and discussed the case with the resident. I agree with the resident's findings and plan as documented. SUBJECTIVE: Pt seen and examined in the ICU. No fevers recorded. Left arm tense and erythematous. Borderline hypotensive. OBJECTIVE: Last Vital Signs Temp Pulse Resp BP Pulse Ox 99 F 71 20 99/61 100 07/01/16 13:51 07/01/16 13:51 07/01/16 13:51 07/01/16 13:51 07/01/16 09:55 Intake & Output 06/28/16 06/29/16 06/30/16 07/01/16 23:59 23:59 23:59 23:59 Intake Total 509 354 0950 200 Output Total 1750 1400 2850 1400 Balance -830 -800 -1683 -1200 Weight 164 lb 159 lb 2.78 oz 159 lb Gen: mildly tachypneic at rest Heart: RRR Lung: scattered rhonchi Abd: soft, nontender Ext: LUE erythema, TTP, tense CBC, BMP 07/01/16 05:20 07/01/16 05:20 Active Medications Acetaminophen (Tylenol -) 650 mg PO Q6H PRN PRN Reason: FEVER OR PAIN Atorvastatin Calcium (Lipitor -) 40 mg PO HS MI Carvedilol (Coreg -) 12.5 mg PO BID MI Ciprofloxacin (Ciloxan 0.3% Eye Drops -) 2 drop OU Q6HPO [facility] Last Admin: 07/01/16 12:47 Dose: 2 drop Furosemide (Lasix -) 40 mg PO BID@0600,1400 [facility] Last Admin: 07/01/16 14:08 Dose: Not Given Heparin Sodium (Porcine) (Heparin -) 5,000 unit SQ BID [facility] Last Admin: 07/01/16 09:48 Dose: 5,000 unit IV Flush (Picc Line Flush) 8 ml IVPUSH PRN PRN PRN Reason: Protocol Nafcillin Sodium 2 gm/ (Dextrose) 100 mls @ 100 mls/hr IVPB Q4H-IV MI PRN Reason: Protocol Last Admin: 07/01/16 13:34 Dose: 100 mls/hr Dobutamine HCl 100,000 mcg/ (Dextrose) 100 mls @ 21.63 mls/hr IVPB ONCE ONE; 5 MCG/KG/MIN PRN Reason: Protocol Stop: 07/01/16 14:37 Last Admin: 07/01/16 11:30 Dose: 21.63 mls/hr Insulin Aspart (Novolog Vial Sliding Scale -) 1 vial SQ TIDAC [facility] PRN Reason: Protocol Last Admin: 07/01/16 12:48 Dose: Not Given Insulin Detemir (Levemir Vial) 5 units SQ AM [facility] Nystatin (Nystop Powder -) 1 applic TP DAILY [facility] Last Admin: 07/01/16 09:49 Dose: 1 applic Spironolactone (Aldactone -) 25 mg PO DAILY [facility] Last Admin: 07/01/16 09:48 Dose: 25 mg ASSESSMENT AND PLAN: Acute on Chronic LV Systolic Heart Failure Staph Bacteremia Phlebitis HTN DM PAD - continue antibiotics - f/u pending cultures to ensure clearance - lasix, aldactone - monitor urine output, creatinine - O2 to keep SpO2 >90% - warm compresses to arm - may need CT arm to r/o abscess - beta deepthi, DOMENIC-I/ARB as BP tolerates - glucose control - PO as tolerated - DVT prophylaxis
--- NOTE | 2016-07-01 16:37 | CONSULT ---
Consult - text type - Consultation Consultation Note: Cardiology not in distress, seems stable, no symptoms PE: vitals stable normal cardio-pulmonary symptoms abdomen soft +3 leg edema, better Impression: acute systolic CHF, severely reduced EF, moderate MR and TR, mild aortic sclerosis Nuclear stress test EF 34%, no evidence of ischemia/infarct, most likely moderate to severe non-ischemic cardiomyopathy large left plural effusion, most likely due to CHF, but pulmonary evaluation helpful mild ARF lipids within target hypothyroid, ? need for treatment episode of hypotension, with maybe dyspnea; TOUR GUIDE, transferred to ICU, on neosynephrine; off pressors, BP borderline stable discussed with EP, recpommended ischemia evaluation; patient not a candidate for left heart catheterization just lifevest when discharge with EF re-eval in 3 months bacteremia Rec: continue care can be transferred to telemetry
--- NOTE | 2016-07-01 17:18 | PN ---
Progress Note (short form) - Note Progress Note: Vascular Surgery Pt seen and examined. Left antecutibal space phlebitis. Please place warm compresses twice a hour for 15 min. If does not get better might need drainage. Awaiting official CT readings. Hitesh Joe DO
[2016-07-01] MEDS: ATORVASTATIN CA 40 MG TABLET (FP) PO SCH (21:45)
[2016-07-01] MEDS ORDERED: CARVEDILOL 12.5 MG TABLET (FP) PO SCH (22:00)
[2016-07-02] MEDS: CIPROFLOXACIN HCL 0.3% OPHTH 2.5ML BOTTLE OU SCH ×2 (01:00→06:29)
[2016-07-02] MEDS: NAFCILLIN - 2 GM in DEXTROSE 5%-WATER - 100 ML IVPB SCH ×6 (01:00→21:47)
[2016-07-02] MEDS ORDERED: PT OWN MED DRAWER 7, Y5N ONE ×6 (01:41→22:00)
[2016-07-02] MEDS: FUROSEMIDE 40 MG TABLET (FP) PO SCH ×2 (06:28→13:03)
[2016-07-02] MEDS: INSULIN DETEMIR 100 UNITS/ML MDV SQ SCH (06:28)
[2016-07-02] MEDS: INSULIN SLIDING SCALE (NOVOLOG) 1 VIAL SQ SCH ×3 (06:29→18:42)
[2016-07-02 07:53] LABS: CALCIUM 7.5 mg/dL (8.5-10.1); COCKROFT - GAULT 58.8; CREATININE 0.7 mg/dL (0.7-1.3); PHOSPHOROUS 2.7 mg/dL (2.5-4.9)
[2016-07-02 07:55] LABS: MAGNESIUM 2.1 mg/dL (1.8-2.4)
--- NOTE | 2016-07-02 09:25 | PN ---
Progress Note (short form) - Note Progress Note: Events noted feels better mild pain left elbow area Vital Signs Period Temp Pulse Resp BP Sys/Arboleda Pulse Ox Last 24 Hr 98.1 F-99.2 F 60-90 18-22 94-133/50-74 100-100 PE: Awake alert HEENT: PERRL, EOMI Neck: Supple, No JVD Lungs: CTA CVS: S1S2 Abd: Benign EXt: left antecubital area erythema Neuro: No focal deficit CBCD WBC 8.4 K/mm3 (4.0-10.0) 07/01/16 05:20 RBC 3.64 M/mm3 (4.00-5.60) L 07/01/16 05:20 Hgb 10.6 GM/dL (11.7-16.9) L 07/01/16 05:20 Hct 32.2 % (35.4-49) L 07/01/16 05:20 MCV 88.3 fl (80-96) 07/01/16 05:20 MCHC 32.9 g/dl (32.0-35.9) 07/01/16 05:20 RDW 14.6 % (11.9-15.9) 07/01/16 05:20 Plt Count 157 K/MM3 (134-434) D 07/01/16 05:20 MPV 9.3 fl (7.5-11.1) 07/01/16 05:20 CMP Sodium 134 mmol/L (136-145) L 07/02/16 05:35 Potassium 4.1 mmol/L (3.5-5.1) 07/02/16 05:35 Chloride 92 mmol/L (98-107) L 07/02/16 05:35 Carbon Dioxide 33 mmol/L (21-32) H 07/02/16 05:35 Anion Gap 9 (8-16) 07/02/16 05:35 BUN 21 mg/dL (7-18) H D 07/02/16 05:35 Creatinine 0.7 mg/dL (0.7-1.3) 07/02/16 05:35 Creat Clearance w eGFR > 60 (>60) 07/01/16 05:20 Calcium 7.5 mg/dL (8.5-10.1) L 07/02/16 05:35 Total Bilirubin 0.9 mg/dL (0.2-1.0) D 07/01/16 05:20 AST 21 U/L (15-37) 07/01/16 05:20 ALT 8 U/L (12-78) L D 07/01/16 05:20 Alkaline Phosphatase 363 U/L (45-117) H 07/01/16 05:20 Total Protein 5.3 g/dl (6.4-8.2) L 07/01/16 05:20 Albumin 1.9 g/dl (3.4-5.0) L 07/01/16 05:20 Current Medications Generic Name Dose Route Start Last Admin Trade Name Freq PRN Reason Stop Dose Admin Acetaminophen 650 mg 07/01/16 09:19 Tylenol - PO Q6H PRN FEVER OR PAIN Atorvastatin Calcium 40 mg 07/01/16 22:00 07/01/16 21:45 Lipitor - PO 40 mg HS MI Administration Carvedilol 12.5 mg 07/02/16 10:00 Coreg - PO BID MI Enalapril Maleate 5 mg 07/02/16 12:00 Vasotec - PO DAILY MI Furosemide 40 mg 07/01/16 14:00 07/02/16 06:28 Lasix - PO 40 mg BID@0600,1400 MI Administration Heparin Sodium (Porcine) 5,000 unit 07/01/16 10:00 07/01/16 21:45 Heparin - SQ 5,000 unit BID MI Administration IV Flush 8 ml 07/01/16 10:49 Picc Line Flush IVPUSH PRN PRN Protocol Nafcillin Sodium 2 gm/ 100 mls @ 100 mls/hr 07/01/16 10:00 07/02/16 06:28 Dextrose IVPB 100 mls/hr Q4H-IV MI Administration Protocol Insulin Aspart 1 vial 07/01/16 11:00 07/02/16 06:29 Novolog Vial Sliding Scale - SQ Not Given TIDAC [facility] Protocol Insulin Detemir 5 units 07/02/16 07:00 07/02/16 06:28 Levemir Vial SQ 5 units AM MI Administration Nystatin 1 applic 07/01/16 10:00 07/01/16 09:49 Nystop Powder - TP 1 applic DAILY MI Administration Spironolactone 25 mg 07/01/16 10:00 07/01/16 09:48 Aldactone - PO 25 mg DAILY MI Administration AP: Hypotension; resolved Left antecubital fossa cellulitis /abscess: CT scan report noted Hypoglycemia: resolved T2DM HTN CHF HLD Abnormal TFT Transferred to Telemetry from ICU IV abx Nafcillin Vascular surgery on the case Hypoglycemia sec to prolonged action of Glipizide and poor food intake. Blood sugar stable on current Insulin regimen BGM QACHS Levemir 5 units daily in a.m. and Novolog SS Change Insulin dose as necessary No Glipizide now No Metformin b/o decompensated CHF Repeat TSH 5.33, no need for LT4 replacement at this point Most patient with abnormal TFT during hospitalization have normal levels after discharge Repeat TFT as outpt. Will F/U
--- NOTE | 2016-07-02 09:25 | PN ---
Teaching Attending Note Name of Resident: Devika Eric ATTENDING PHYSICIAN STATEMENT I saw and evaluated the patient. I reviewed the resident's note and discussed the case with the resident. I agree with the resident's findings and plan as documented. SUBJECTIVE: Feeling better, no acute distress. OBJECTIVE: Vital Signs Temperature 98.1 F 07/02/16 06:26 Pulse Rate 80 07/02/16 06:26 Respiratory Rate 20 07/02/16 06:26 Blood Pressure 110/74 07/02/16 06:26 O2 Sat by Pulse Oximetry (%) 100 07/01/16 22:00 CBCD WBC 8.4 K/mm3 (4.0-10.0) 07/01/16 05:20 RBC 3.64 M/mm3 (4.00-5.60) L 07/01/16 05:20 Hgb 10.6 GM/dL (11.7-16.9) L 07/01/16 05:20 Hct 32.2 % (35.4-49) L 07/01/16 05:20 MCV 88.3 fl (80-96) 07/01/16 05:20 MCHC 32.9 g/dl (32.0-35.9) 07/01/16 05:20 RDW 14.6 % (11.9-15.9) 07/01/16 05:20 Plt Count 157 K/MM3 (134-434) D 07/01/16 05:20 MPV 9.3 fl (7.5-11.1) 07/01/16 05:20 CMP Sodium 134 mmol/L (136-145) L 07/02/16 05:35 Potassium 4.1 mmol/L (3.5-5.1) 07/02/16 05:35 Chloride 92 mmol/L (98-107) L 07/02/16 05:35 Carbon Dioxide 33 mmol/L (21-32) H 07/02/16 05:35 Anion Gap 9 (8-16) 07/02/16 05:35 BUN 21 mg/dL (7-18) H D 07/02/16 05:35 Creatinine 0.7 mg/dL (0.7-1.3) 07/02/16 05:35 Creat Clearance w eGFR > 60 (>60) 07/01/16 05:20 Random Glucose 100 mg/dL (74-106) D 07/02/16 05:35 Calcium 7.5 mg/dL (8.5-10.1) L 07/02/16 05:35 Total Bilirubin 0.9 mg/dL (0.2-1.0) D 07/01/16 05:20 AST 21 U/L (15-37) 07/01/16 05:20 ALT 8 U/L (12-78) L D 07/01/16 05:20 Alkaline Phosphatase 363 U/L (45-117) H 07/01/16 05:20 Total Protein 5.3 g/dl (6.4-8.2) L 07/01/16 05:20 Albumin 1.9 g/dl (3.4-5.0) L 07/01/16 05:20 CARDIAC ENZYMES Creatine Kinase 292 IU/L (39-308) 06/30/16 05:27 Troponin I 0.02 ng/ml (0.00-0.05) 06/30/16 05:27 Current Medications Generic Name Dose Route Start Last Admin Trade Name Freq PRN Reason Stop Dose Admin Acetaminophen 650 mg 07/01/16 09:19 Tylenol - PO Q6H PRN FEVER OR PAIN Atorvastatin Calcium 40 mg 07/01/16 22:00 07/01/16 21:45 Lipitor - PO 40 mg HS MI Administration Carvedilol 12.5 mg 07/02/16 10:00 Coreg - PO BID MI Enalapril Maleate 5 mg 07/02/16 12:00 Vasotec - PO DAILY MI Furosemide 40 mg 07/01/16 14:00 07/02/16 06:28 Lasix - PO 40 mg BID@0600,1400 MI Administration Heparin Sodium (Porcine) 5,000 unit 07/01/16 10:00 07/01/16 21:45 Heparin - SQ 5,000 unit BID MI Administration IV Flush 8 ml 07/01/16 10:49 Picc Line Flush IVPUSH PRN PRN Protocol Nafcillin Sodium 2 gm/ 100 mls @ 100 mls/hr 07/01/16 10:00 07/02/16 06:28 Dextrose IVPB 100 mls/hr Q4H-IV MI Administration Protocol Insulin Aspart 1 vial 07/01/16 11:00 07/02/16 06:29 Novolog Vial Sliding Scale - SQ Not Given TIDAC [facility] Protocol Insulin Detemir 5 units 07/02/16 07:00 07/02/16 06:28 Levemir Vial SQ 5 units AM MI Administration Nystatin 1 applic 07/01/16 10:00 07/01/16 09:49 Nystop Powder - TP 1 applic DAILY [facility] Administration Spironolactone 25 mg 07/01/16 10:00 07/01/16 09:48 Aldactone - PO 25 mg DAILY MI Administration Home Medications Medication Instructions Recorded Enalapril Maleate 5 mg PO DAILY 06/22/16 Insulin Detemir [Levemir Flextouch] 20 unit SQ DAILY 06/22/16 Simvastatin 40 mg PO HS 06/22/16 ASSESSMENT AND PLAN: Microbiology 07/01/16 09:00 Blood - Peripheral Venous Blood Culture - Preliminary NO GROWTH OBTAINED AFTER 24 HOURS, INCUBATION TO CONTINUE FOR 4 DAYS. 06/22/16 19:30 Nasopharyngeal Swab Respiratory Virus Panel - Final 06/28/16 00:05 Blood - Peripheral Venous Blood Culture - Final Staphylococcus Aureus 06/28/16 01:30 Wound Gram Stain - Final 06/28/16 01:30 Wound Wound Culture - Final Staphylococcus Aureus 06/28/16 00:05 Blood - Peripheral Venous Blood Culture - Final Staphylococcus Aureus 06/23/16 10:55 Urine - Urine - Catheterized Urine Culture - Final NO GROWTH OBTAINED 06/22/16 19:30 Nasopharyngeal Swab Influenza Types A,B Antigen (ISACC) - Final 06/22/16 19:30 Nasopharyngeal Swab - Final ECHO: LV systolic function severely reduced, severe global hypokinesis ASSESSMENT AND PLAN: Patient is a 85yo M with PMHx DM, HTN and dyslipidemia presented to the ER for Acute hypoglycemia and was admitted for further evaluation of their emergent condition. #Catheter-related phlebitis of LUE anticubital area improving continue warm compressors , Dr.Nirav Joe (Vascular surgeon) seen the patient, Nothing to be done surgical glass ,just to add warm compressors. #G positive Bacteremia(MSSA) on Nafcillin continue, will need a PICC line for an outpatient ABX # VT patient is not a cath candidate bc bacteremia . Nuclear stress test EF 34% , no evidence of ischemia/infarct, most likely moderate to severe non-ischemic cardiomyopathy plan to send home with zoll defibrillator vest, rep contacted to come in today #acute systolic CHF, severely reduced EF, moderate MR and TR, mild aortic sclerosis; on po lasix continue # Acute hyponatremia improving due to dilutional # DM sliding scale DVT px- hep sq; PT evaluation full details as per Resident note.
[2016-07-02] MEDS ORDERED: CARVEDILOL 12.5 MG TABLET (FP) PO SCH (10:00)
[2016-07-02] MEDS: HEPARIN NA (PORCINE) 5,000 UNITS/ML 1ML VIAL SQ SCH (10:23)
[2016-07-02] MEDS: SPIRONOLACTONE 25 MG TABLET (FP) PO SCH (10:23)
[2016-07-02] MEDS: NYSTATIN POWDER 100,000 UNITS/GM - 15 GM TOPICAL POWDER TP SCH (10:25)
[2016-07-02] MEDS ORDERED: ENALAPRIL MALEATE 5 MG TABLET (FP) PO SCH (12:00)
--- NOTE | 2016-07-02 12:51 | PN ---
Addendum entered and electronically signed by Deviak Eric RES 07/02/16 15: 21: A/P Acute hypoxic respiratory failure -due to acute decompensated CHF -now requires supplemental O2 because O2 sat 80% on room air. Original Note: Physical Exam: SUBJECTIVE: Patient seen and examined Resting in bed NAD. afebrile and hemodynamically stable. BG mid 100's-low 200' s. feels well. good appetite. no sob, weakness, dizziness, cough, chest pain, n/ v or h/a. L antecubital cellullitis appears improved OBJECTIVE: Vital Signs Period Temp Pulse Resp BP Sys/Arboleda Pulse Ox Last 24 Hr 98.1 F-99.2 F 70-90 18-22 94-110/50-74 96-100 GENERAL: Awake, alert, and fully oriented, in no acute distress. HEAD: Normal with no signs of trauma. EYES: Pupils equal, round and reactive to light, extraocular movements intact, sclera anicteric, conjunctiva clear. No lid lag. EARS, NOSE, THROAT: oropharynx clear without exudates. Moist mucous membranes. NECK: supple mild JVD, LUNGS: bibasilar crackles improved HEART: Regular rate and rhythm, normal S1 and S2 grade 2 systolic murmur, PMI deviated left ABDOMEN: Soft, nontender, mod distended distended, globally reduced bowel sounds , no abd edema MUSCULOSKELETAL: No CVA tenderness. UPPER EXTREMITIES: 2+ pulses, warm, well-perfused. No cyanosis. No clubbing. No peripheral edema. LOWER EXTREMITIES: not palpable pulses, cool, 1+ pitting edema, improved from yesterday. NEUROLOGICAL: Cranial nerves II-XII intact. Normal speech. strength 4+/5 , 1+ reflexes upper and lower extremities, PSYCHIATRIC: Cooperative. Good eye contact. Appropriate mood and affect. SKIN: Warm, dry. L antecubital cellulitis improving. skin now wrinkled indicating resolution of induration. minimal pain, no drainage. Laboratory Results - last 24 hr 07/01/16 07/01/16 07/02/16 12:46 16:15 05:20 Sodium Potassium Chloride Carbon Dioxide Anion Gap BUN Creatinine POC Glucometer [phone] Random Glucose Calcium Phosphorus Magnesium 07/02/16 05:35 Sodium 134 L Potassium 4.1 Chloride 92 L Carbon Dioxide 33 H Anion Gap 9 BUN 21 H D Creatinine 0.7 POC Glucometer Random Glucose 100 D Calcium 7.5 L Phosphorus 2.7 Magnesium 2.1 Active Medications Generic Name Dose Route Start Last Admin Trade Name Carla PRN Reason Stop Dose Admin Acetaminophen 650 mg 07/01/16 09:19 Tylenol - PO Q6H PRN FEVER OR PAIN Atorvastatin Calcium 40 mg 07/01/16 22:00 07/01/16 21:45 Lipitor - PO 40 mg HS MI Administration Carvedilol 6.25 mg 07/02/16 22:00 Coreg - PO BID MI Enalapril Maleate 5 mg 07/02/16 12:00 Vasotec - PO DAILY MI Furosemide 40 mg 07/01/16 14:00 07/02/16 06:28 Lasix - PO 40 mg BID@0600,1400 MI Administration Heparin Sodium (Porcine) 5,000 unit 07/01/16 10:00 07/02/16 10:23 Heparin - SQ 5,000 unit BID MI Administration IV Flush 8 ml 07/01/16 10:49 Picc Line Flush IVPUSH PRN PRN Protocol Nafcillin Sodium 2 gm/ 100 mls @ 100 mls/hr 07/01/16 10:00 07/02/16 10:24 Dextrose IVPB 100 mls/hr Q4H-IV MI Administration Protocol Insulin Aspart 1 vial 07/01/16 11:00 07/02/16 12:41 Novolog Vial Sliding Scale - SQ Not Given TIDAC [facility] Protocol Insulin Detemir 5 units 07/02/16 07:00 07/02/16 06:28 Levemir Vial SQ 5 units AM MI Administration Nystatin 1 applic 07/01/16 10:00 07/02/16 10:25 Nystop Powder - TP 1 applic DAILY MI Administration Spironolactone 25 mg 07/01/16 10:00 07/02/16 10:23 Aldactone - PO 25 mg DAILY MI Administration ASSESSMENT/PLAN: This is an 85 yo M with PMH of IDDM, HTN, HLD, who BBEMS after being found unresponsive by . IN ambulance his BG was 23 and increased to 66 after d50 at which time he regained consciousness with baseline mental status. Acute decompensated CHF -likely due to CAD; admission BNP 8222 and congested CXR -EKG L axis, 1 degree av block, poor rv progression, sonspecif t flattening in inferolateral leads, no ACS -TTE severely reduced EF, global LV hypokinesis -dobutamine stress test ef 34%, small fixed inferolateral defect consistent with diaphragmatic shadow. -evaluated by cardiology and EP -PO lasix 40 bid -enalapril 5d. restart coreg 6.25 bid; titrate up outpatient -aldactone 25 d -asa 81 d -not a cath candidate bc bacteremic. plan to send home with zoll defibrillator vest, rep contacted to come in today -PT reeval, pre and post, incentive spirometer Gram Positive bacteremia -source Left antecubital phlebitis/abscess, lesion improving -gram culture, blood MSSA -repeat blood negative @ 24 hr -ID: nafcillin abx day 5 -warm compresses to area -Picc line tomorrow for dc Hypoglycemia -due to anorexia associated with chf and liver congestion, slowed glipizide metabolism -resolved IDDM -poorly controlled, A1c = 10.8 -on d/c will stop glipizide 10 d, metformin 100bid, levemir 20 d -BGM TIDAC -sliding scale -levemir 5 u AM -Diabetic Na restricted diet subclinical vs sick Hypothyroid -TSH 5.33 -free t4 wnl -no treatment indicated HTN -meds as above HLD -atorvastatin 40 hs Suspect PAD -arterial duplex no hemodynamically significant occulusion FEN no ivf optimize k and mag Diabetic na restricted diet Dispo telemetry Problem List - Problems (1) CHF (congestive heart failure) Code(s): I50.9 - HEART FAILURE, UNSPECIFIED Qualifiers: Congestive heart failure type: unspecified congestive heart failure type Congestive heart failure chronicity: acute Qualified Code(s): I50.9 - Heart failure, unspecified (2) Hypoglycemia Code(s): E16.2 - HYPOGLYCEMIA, UNSPECIFIED (3) Hypothyroid Code(s): E03.9 - HYPOTHYROIDISM, UNSPECIFIED Qualifiers: Hypothyroidism type: unspecified Qualified Code(s): E03.9 - Hypothyroidism, unspecified (4) Insulin dependent diabetes mellitus Code(s): E11.9 - TYPE 2 DIABETES MELLITUS WITHOUT COMPLICATIONS Z79.4 - [facility] (CURRENT) USE OF INSULIN (5) HLD (hyperlipidemia) Code(s): E78.5 - HYPERLIPIDEMIA, UNSPECIFIED (6) HTN (hypertension) Code(s): I10 - ESSENTIAL (PRIMARY) HYPERTENSION (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 - New Patient This patient is new to me today: No - Critical Care Critical Care patient: No - Discharge Referral Referred to [facility] Med P.C.: No
[2016-07-02] MEDS: ENALAPRIL MALEATE 2.5 MG TABLET (FP) PO SCH (13:03)
--- NOTE | 2016-07-02 14:12 | PN ---
Progress Note (short form) - Note Progress Note: awake and alert NAD Vital Signs Period Temp Pulse Resp BP Sys/Arboleda Pulse Ox Last 24 Hr 98.1 F-99.2 F 70-90 18-22 94-110/50-74 96-100 cor-rrr llungs decreased bs at base left antecuf with erythema and induration (within marked area), no fluctuance abd soft,nt ext no edema CBC, BMP 07/01/16 05:20 07/02/16 05:35 Microbiology 07/01/16 09:30 Blood - Peripheral Venous Blood Culture - Preliminary NO GROWTH OBTAINED AFTER 24 HOURS, INCUBATION TO CONTINUE FOR 4 DAYS. 07/01/16 09:00 Blood - Peripheral Venous Blood Culture - Preliminary NO GROWTH OBTAINED AFTER 24 HOURS, INCUBATION TO CONTINUE FOR 4 DAYS. 06/22/16 19:30 Nasopharyngeal Swab Respiratory Virus Panel - Final 06/28/16 00:05 Blood - Peripheral Venous Blood Culture - Final Staphylococcus Aureus 06/28/16 01:30 Wound Gram Stain - Final 06/28/16 01:30 Wound Wound Culture - Final Staphylococcus Aureus 06/28/16 00:05 Blood - Peripheral Venous Blood Culture - Final Staphylococcus Aureus 06/23/16 10:55 Urine - Urine - Catheterized Urine Culture - Final NO GROWTH OBTAINED 06/22/16 19:30 Nasopharyngeal Swab Influenza Types A,B Antigen (ISACC) - Final 06/22/16 19:30 Nasopharyngeal Swab - Final a/p MSSA bacteremia with phlebitis repeat blood cultures pending esr/crp ordered continue nafcillin dm/htn/chf
[2016-07-02] MEDS: ATORVASTATIN CA 40 MG TABLET (FP) PO SCH (21:48)
[2016-07-02] MEDS ORDERED: CARVEDILOL 6.25 MG TABLET (FP) PO SCH (22:00)
[2016-07-03] MEDS: NAFCILLIN - 2 GM in DEXTROSE 5%-WATER - 100 ML IVPB SCH ×4 (02:29→14:05)
[2016-07-03] MEDS ORDERED: PT OWN MED DRAWER 7, Y5N ONE ×3 (05:23→09:31)
[2016-07-03] MEDS: INSULIN SLIDING SCALE (NOVOLOG) 1 VIAL SQ SCH ×2 (06:00→12:22)
[2016-07-03] MEDS: FUROSEMIDE 40 MG TABLET (FP) PO SCH ×2 (06:14→14:06)
[2016-07-03] MEDS: INSULIN DETEMIR 100 UNITS/ML MDV SQ SCH (06:16)
[2016-07-03 07:41] LABS: CALCIUM 7.1 mg/dL (8.5-10.1); COCKROFT - GAULT 45.73; CREATININE 0.9 mg/dL (0.7-1.3); MAGNESIUM 2.1 mg/dL (1.8-2.4); PHOSPHOROUS 3.6 mg/dL (2.5-4.9)
[2016-07-03] MEDS ORDERED: CARVEDILOL 12.5 MG TABLET (FP) PO SCH (07:49)
[2016-07-03] MEDS: SPIRONOLACTONE 25 MG TABLET (FP) PO SCH (09:14)
[2016-07-03] MEDS: NYSTATIN POWDER 100,000 UNITS/GM - 15 GM TOPICAL POWDER TP SCH (09:14)
[2016-07-03] MEDS: ENALAPRIL MALEATE 2.5 MG TABLET (FP) PO SCH (09:15)
--- NOTE | 2016-07-03 09:22 | PN ---
Progress Note (short form) - Note Progress Note: awake and alert NAD Vital Signs Period Temp Pulse Resp BP Sys/Arboleda Pulse Ox Last 24 Hr 98.3 F-99.5 F 70-89 20-20 97-122/46-61 95-96 cor-rrr lungs decreased bs at bases abd soft,nt ext +induration left antecub- erythema improved, no purulent drainage CBC, BMP 07/01/16 05:20 07/03/16 05:35 Laboratory Tests 07/03/16 07/03/16 05:35 05:35 ESR 50 H C-Reactive Protein 10.6 H Microbiology 07/01/16 09:00 Blood - Peripheral Venous Blood Culture - Preliminary NO GROWTH OBTAINED AFTER 48 HOURS, INCUBATION TO CONTINUE FOR 3 DAYS. 07/01/16 09:30 Blood - Peripheral Venous Blood Culture - Preliminary NO GROWTH OBTAINED AFTER 24 HOURS, INCUBATION TO CONTINUE FOR 4 DAYS. 06/22/16 19:30 Nasopharyngeal Swab Respiratory Virus Panel - Final 06/28/16 00:05 Blood - Peripheral Venous Blood Culture - Final Staphylococcus Aureus 06/28/16 01:30 Wound Gram Stain - Final 06/28/16 01:30 Wound Wound Culture - Final Staphylococcus Aureus 06/28/16 00:05 Blood - Peripheral Venous Blood Culture - Final Staphylococcus Aureus 06/23/16 10:55 Urine - Urine - Catheterized Urine Culture - Final NO GROWTH OBTAINED 06/22/16 19:30 Nasopharyngeal Swab Influenza Types A,B Antigen (ISACC) - Final 06/22/16 19:30 Nasopharyngeal Swab - Final a/p MSSA bacteremia with phlebitis continue nafcillin dm/htn/chf
[2016-07-03 11:01] VITALS: PULSE 70
--- NOTE | 2016-07-03 12:54 | PN ---
Progress Note, Physician History of Present Illness: OOB in chair No complaints No fever/ chills repeat BC no growth - Current Medication List Current Medications: Active Medications Acetaminophen (Tylenol -) 650 mg PO Q6H PRN PRN Reason: FEVER OR PAIN Last Admin: 07/02/16 17:31 Dose: 650 mg Atorvastatin Calcium (Lipitor -) 40 mg PO HS [facility] Last Admin: 07/02/16 21:48 Dose: 40 mg Carvedilol (Coreg -) 12.5 mg PO BID [facility] Last Admin: 07/03/16 09:14 Dose: 12.5 mg Enalapril Maleate (Vasotec -) 5 mg PO DAILY [facility] Last Admin: 07/03/16 09:15 Dose: 5 mg Furosemide (Lasix -) 40 mg PO BID@0600,1400 [facility] Last Admin: 07/03/16 06:14 Dose: 40 mg Heparin Sodium (Porcine) (Heparin -) 5,000 unit SQ BID [facility] Last Admin: 07/02/16 10:23 Dose: 5,000 unit IV Flush (Picc Line Flush) 8 ml IVPUSH PRN PRN PRN Reason: Protocol Nafcillin Sodium 2 gm/ (Dextrose) 100 mls @ 100 mls/hr IVPB Q4H-IV MI PRN Reason: Protocol Last Admin: 07/03/16 12:09 Dose: Not Given Insulin Aspart (Novolog Vial Sliding Scale -) 1 vial SQ TIDAC MI PRN Reason: Protocol Last Admin: 07/03/16 12:22 Dose: Not Given Insulin Detemir (Levemir Vial) 5 units SQ AM [facility] Last Admin: 07/03/16 06:16 Dose: Not Given Nystatin (Nystop Powder -) 1 applic TP DAILY [facility] Last Admin: 07/03/16 09:14 Dose: 1 applic Spironolactone (Aldactone -) 25 mg PO DAILY [facility] Last Admin: 07/03/16 09:14 Dose: 25 mg - Objective Vital Signs: Vital Signs Temperature 98.8 F 07/03/16 10:00 Pulse Rate 70 07/03/16 10:00 Respiratory Rate 18 07/03/16 10:00 Blood Pressure 110/64 07/03/16 10:00 O2 Sat by Pulse Oximetry (%) 98 07/03/16 10:00 Constitutional: Yes: No Distress Eyes: Yes: Conjunctiva Clear Cardiovascular: Yes: Regular Rate and Rhythm, S1, S2 Respiratory: Yes: CTA Bilaterally Gastrointestinal: Yes: Normal Bowel Sounds, Soft. No: Tenderness Labs: CBC, BMP 07/01/16 05:20 07/03/16 05:35 INR, PTT INR 1.26 (0.82-1.09) H 06/22/16 15:19 Assessment/Plan Catheter- related phlebitis/ cellulitis/ abscess L antecubital fossa + Blood c/s MSSA Substitute cefazolin 2gm IVPB q 8h for home infusion To complete 28d course total Will see in office 1 week Discussed with family member who is a medical administrative assistant and will assist patient with infusion therapy
[2016-07-03 14:01] VITALS: BP 90/52; TEMP 99.5
--- NOTE | 2016-07-03 14:14 | DS ---
Physical Exam: SUBJECTIVE: Patient seen and examined Resting in bed NAD. afebrile and hemodynamically stable. BG mid 100's-low 200' s. feels well. good appetite. no sob, weakness, dizziness, cough, chest pain, n/ v or h/a. L antecubital cellullitis appears improved OBJECTIVE: Vital Signs Period Temp Pulse Resp BP Sys/Arboleda Pulse Ox Last 24 Hr 98.3 F-99.5 F 70-89 18-20 90-114/46-64 95-98 PHYSICAL EXAM GENERAL: Awake, alert, and fully oriented, in no acute distress. HEAD: Normal with no signs of trauma. EYES: Pupils equal, round and reactive to light, extraocular movements intact, sclera anicteric, conjunctiva clear. No lid lag. EARS, NOSE, THROAT: oropharynx clear without exudates. Moist mucous membranes. NECK: supple mild JVD, LUNGS: bibasilar crackles improved HEART: Regular rate and rhythm, normal S1 and S2 grade 2 systolic murmur, PMI deviated left ABDOMEN: Soft, nontender, mod distended distended, globally reduced bowel sounds , no abd edema MUSCULOSKELETAL: No CVA tenderness. UPPER EXTREMITIES: 2+ pulses, warm, well-perfused. No cyanosis. No clubbing. No peripheral edema. LOWER EXTREMITIES: not palpable pulses, cool, 1+ pitting edema, improved from yesterday. NEUROLOGICAL: Cranial nerves II-XII intact. Normal speech. strength 4+/5 , 1+ reflexes upper and lower extremities, PSYCHIATRIC: Cooperative. Good eye contact. Appropriate mood and affect. SKIN: Warm, dry. L antecubital cellulitis improving. skin now wrinkled indicating resolution of induration. minimal pain, no drainage. LABS Laboratory Results - last 24 hr 07/02/16 07/03/16 07/03/16 18:06 05:35 05:35 ESR Sodium 135 L Potassium 4.1 Chloride 92 L Carbon Dioxide 32 Anion Gap 11 BUN 18 Creatinine 0.9 D POC Glucometer 72 Random Glucose 94 Calcium 7.1 L Phosphorus 3.6 D Magnesium 2.1 C-Reactive Protein 10.6 H 07/03/16 07/03/16 07/03/16 05:35 05:47 12:20 ESR 50 H Sodium Potassium Chloride Carbon Dioxide Anion Gap BUN Creatinine POC Glucometer 104 132 Random Glucose Calcium Phosphorus Magnesium C-Reactive Protein HOSPITAL COURSE: Date of Admission:06/22/16 This is an 85 yo M with PMH of IDDM, HTN, HLD, who BBEMS after being found unresponsive by . [place] ambulance his BG was 23 and increased to 66 after d50 at which time he regained consciousness with baseline mental status. Per family , he developed a subjective fever 2 w ago w/o associated symptoms of sore throat , rhinorrhea, dysuria, diarrhea. 2 weeks ago he also developed a dry cough, increased exercise intolerance with minimal activity of daily living and difficulty sleeping, possibly due to orthopnea. 1 week ago he developed anorexia. 3 days ago he developed diffuse edema, especially in the lower extremities. He denies chest pain or discomfort, palpitations, loc or dizziness. 3 days ago his metformin dose was doubled to 1000 bid. He does not use glucometer strips, states he only checks sugar at doctors office at which time is is 500 and doesn't know his A1C. He has no metal off bearer or personal history of heart disease, however he does admit to b/l calf cramping during activity. History partially obtained from . In Er his bg remains in 50's-60' s despite eating. EKG showed LVX with L axis and CXR showed congestion and effusions. He was admitted due to Acute decompensated CHF. Had TTE showing severely reduced EF, global LV hypokinesis. Dobutamine stress test ef 34%, small fixed inferolateral defect consistent with diaphragmatic shadow. He was started on lasix 40 bid, aldactone 25 d, coreg 12.5 bid, enalapril 5 daily, asa 81 d and atorvastatin 40 hs. He was evaluated by cardiology and EP. He will need to wear Zoll wearable defibrillator for 3 mo and f/u for a repeat echo; may need implantable defibrillator. Hypoglycemia was due to anorexia associated with chf and liver congestion which slowed glipizide metabolism. His oral hypoglycemic agents were stoppedn and he was controlled n 5 u levemir am daily. HE developed a soft tissue abscess on L antecubital fossa from IV phlebitis and received IV abx, He had a picc line placed and was dcd on IV cefazolin 2 gm q8h for 23 days more. Date of Discharge: 07/03/16 Minutes to complete discharge: 60 (na) Discharge Summary Reason For Visit: HYPOGLYCEMIA Current Active Problems CHF (congestive heart failure) (Acute) Gram-positive bacteremia (Acute) HLD (hyperlipidemia) (Acute) HTN (hypertension) (Acute) Hypoglycemia (Acute) Hypotension (Acute) Insulin dependent diabetes mellitus (Acute) Soft tissue abscess (Acute) Systolic and diastolic CHF w/reduced LV function, NYHA class 4 (Acute) Condition: Stable - Instructions Diet, Activity, Other Instructions: You presented with Heart failure. You heart is very weak and for that reason you are at risk of sudden . We gave you new heart medication that you have to take every day. This medication improves heart strength. You will wear a defibrillator vest every day all the time except for shower. If your heart develops a fatal arrhythmia and you pass out, the vest will automatically shock you in order to restart the heart. On the vest, an alarm goes off 10 seconds before the shock. Vest should not shock you if you are awake because a dangerous arrhythmia will make you pass out but it the alarm accidentally goes off while you are awake, you can press button on battery pack to turn off the shock. If you are with a family member and you pass out and they hear the alarm, they have to step away from you and let the vest shock you. If it shocks you, it will release ink to confirm that shock occurred. You will wear the vest for 3 moths and your metal off bearer will then do another ultrasound of the heart. If the heart strength improves you can take off vest. If it does not improve, you may benefit from an implantable defibrillator (a wire inside your heart that will prevent dangerous arrhythmic events). Your heart medications are: Aldactone 25 mg daily Enalapril 5 mg daily Carvedilol 12.5 md twice a day Lasix 40 mh twice a day Aspirin 81 mg daily Simvastatin 40 mg daily Please follow up with Dr Marroquin cardiology in 1 week to adjust medication and Dr Taylor (metal off bearer who implants defibrillators) in 3 months if heart strength doesnt improve. You developed a skin infection while in the hospital that infected your blood. You need 23 more days of intravenous antibiotic to prevent this infection causing heart problems. The antibiotic Cefazolin will be infused into your picc line catheter 3 time a day. Please follow up with infectious disease specialist Dr Dan in 1 week You came with low blood sugar because of heart failure affecting your liver. Do not take metformin or glipizide any more! Only take 5 units of levemir in the morning. Check sugar every morning. If it is below 90, eat something sweet. If it is above 350 call your doctor Follow up with primary care doctor this week to check sugar. Return to hospital if symptoms worsen Se present con insuficiencia cardaca. Tu corazn es muy dbil y por eso est s en riesgo de muerte sbita. Te dimos un nuevo medicamento para el corazn que tienes que yuki todos los d as. Triny medicamento mejora la fuerza del corazn. Usted llevar un chaleco de desfibrilador todos los fairchild todo el tiempo excepto para la ducha. Si tu corazn desarrolla seda arritmia fatal y te desmayas, el chaleco te sacudir automticamente para reiniciar el corazn. En el chaleco, seda alarma se apaga 10 segundos antes del choque. Chaleco no debe sorprenderle si est despierto porque seda arritmia peligrosa le anmol desmayarse priscilla la alarma accidentalmente se apaga mientras est despierto, puede presionar el bot n en la batera para apagar el choque. Si ests con un miembro de la tommy y te desmayas y escuchan la alarma, tienen que alejarse de ti y dejar que el chaleco te choque. Si te sacude, liberar tinta para confirmar que ocurri un choque. Usted usar el chaleco para 3 polillas y melendez cardilogo anmol otra ecograf a del corazn. Si mejora la fuerza del corazn puede quitarse el chaleco. Si no mejora, usted puede beneficiarse de un desfibrilador implantable (un alambre dentro de melendez corazn que evitar peligrosos eventos arrtmicos). Sana medicamentos para el corazn son: Aldactone 25 mg al da Enalapril 5 mg al da Carvedilol 12,5 md dos veces al da Lasix 40 mh dos veces al da Aspirina 81 mg al da Simvastatina 40 mg al da Por favor, siga con la Dra. Marroquin Cardiologa en 1 semana para ajustar la medicacin y el Dr. Taylor (cardilogo que implantes desfibriladores) en 3 meses si la fuerza del corazn no mejora. Usted desarroll seda infeccin de la piel mientras estaba en el hospital que infect melendez oneida. Necesita 23 fairchild ms de antibitico intravenoso para prevenir esta infeccin causando problemas cardacos. El antibitico Cefazolin se infundir en melendez catter de lnea picc 3 veces al da. Por favor, siga con el especialista en enfermedades infecciosas Dr. Dan en 1 semana Vino con bajo nivel de azcar en la oneida debido a insuficiencia cardaca que afecta melendez hgado. No tome metformin o glipizide ms! Slo yuki 5 unidades de levemir por la maana. Compruebe el azcar cada maana. Si es por debajo de 90, comer algo klaudia. Si est por encima de 350, llame a melendez mdico Seguimiento con el mdico de atencin primaria esta semana para comprobar el az car. Regreso al hospital si los sntomas empeoran Referrals: Delio Taylor MD [Staff Physician] - 1 Week Sue Brown MD [Primary Care Provider] - 1 Week Tam Marroquin MD [Staff Physician] - 1 Week Nikos Dan MD [Staff Physician] - 1 Week Disposition: VNS/HOME HEALTH CARE - Home Medications Comprehensive Discharge Medication List: Ambulatory Orders Enalapril Maleate 5 mg PO DAILY 06/22/16 Simvastatin 40 mg PO HS 06/22/16 Carvedilol [Coreg -] 12.5 mg PO BID #60 tablet 07/03/16 Cefazolin Sodium in 0.9 % NaCl [Cefazolin-0.9% NaCl 2 G/10 ml] 2 gm IV Q8H #70 syringe 07/03/16 Furosemide [Lasix -] 40 mg PO BID@0600,1400 #60 tablet 07/03/16 Insulin (Levemir) [Levemir Vial] 5 units SQ AM #5 ml 07/03/16 Picc Line Flush [Picc Line Flush -] 8 ml IVPUSH PRN PRN #40 ml 07/03/16 Spironolactone [Aldactone -] 25 mg PO DAILY #30 tablet 07/03/16 Problem List - Problems (1) CHF (congestive heart failure) Code(s): I50.9 - HEART FAILURE, UNSPECIFIED Qualifiers: Congestive heart failure type: unspecified congestive heart failure type Congestive heart failure chronicity: acute Qualified Code(s): I50.9 - Heart failure, unspecified (2) Hypoglycemia Code(s): E16.2 - HYPOGLYCEMIA, UNSPECIFIED (3) Hypothyroid Code(s): E03.9 - HYPOTHYROIDISM, UNSPECIFIED Qualifiers: Hypothyroidism type: unspecified Qualified Code(s): E03.9 - Hypothyroidism, unspecified (4) Insulin dependent diabetes mellitus Code(s): E11.9 - TYPE 2 DIABETES MELLITUS WITHOUT COMPLICATIONS Z79.4 - SENIOR CARE (CURRENT) USE OF INSULIN (5) HLD (hyperlipidemia) Code(s): E78.5 - HYPERLIPIDEMIA, UNSPECIFIED (6) HTN (hypertension) Code(s): I10 - ESSENTIAL (PRIMARY) HYPERTENSION (7) Systolic and diastolic CHF w/reduced LV function, NYHA class 4 Code(s): I50.40 - UNSP COMBINED SYSTOLIC AND DIASTOLIC (CONGESTIVE) HRT FAIL (8) Gram-positive bacteremia Code(s): A49.9 - BACTERIAL INFECTION, UNSPECIFIED (9) Soft tissue abscess Code(s): L02.91 - CUTANEOUS ABSCESS, UNSPECIFIED (10) Acute hypoxemic respiratory failure Code(s): J96.01 - ACUTE RESPIRATORY FAILURE WITH HYPOXIA This patient is new to me today: No Emergency Visit: Yes ED Registration Date: 06/22/16 Care time: The patient presented to the Emergency Department on the above date and was hospitalized for further evaluation of their emergent condition. Critical Care patient: No - Discharge Referral Referred to [facility] No
--- NOTE | 2016-07-03 15:32 | PN ---
Teaching Attending Note Name of Resident: Devika Eric ATTENDING PHYSICIAN STATEMENT I saw and evaluated the patient. I reviewed the resident's note and discussed the case with the resident. I agree with the resident's findings and plan as documented. SUBJECTIVE: no apin, no SOB , has no cough . OBJECTIVE: NAD, Awake , alet , sitting in chair CV: RRR, no MRG. Lungs : bibasilar crackles at bases only ( minimal ) Ext: no edema today over legs . L antecubital area with erythematous endurated area at IV site and down to mid fore arm, with palpable vein but no fluctuance ASSESSMENT AND PLAN: 85 y/o gentleman with h/o IDDM , and HTN, who lives with daughter . He was lynnette here after being found unresponsive and was found to be in Heart failure and hypoglycemia 1- sepsis with bacteremia from IV site infection ( infectious phkebitis ) . repeat bloodc x neg x 48 hrs. d/w Dr. Gage. switch to cefazolin for a totla of 4 weeks echo showed no vegetation f/u with ID in 1 week has PICC placed today . 2- IDDM, with initial hypoglycemia : cont with 5 units of levemir at dc . can be titrated up if needed . daughter , was instructed against use of metformin and glipizde at dc 3- New onset of acute decompensated systolic heart failure. with severely reduced EF - cont lasix po BID - EP eval done, need life vest wwhich will be delivered today - cont enalapril, coreg, and aldactone - BP in 90s , acceptable - f/u with card dispo : ismael navarro after delivery of life vest
== END 2016-07-03 17:35 | disposition home health service (06) | DRG 291 ==
LOC: JER 15:04 → JERBED 17:34 → J6S 18:40 → J4W 06-23 21:43 → JICU 06-29 17:44 → J4S 07-01 17:48
PROVIDERS: ADMIT Internal Medicine; ATTEND Internal Medicine
PROC: 3E0F7GC Introduction of Other Therapeutic Substance into Respiratory Tract, Via Natural or Artificial Opening (ICD-10-PCS; 2016-06-22)
PROC: 5A09357 Assistance with Respiratory Ventilation, Less than 24 Consecutive Hours, Continuous Positive Airway Pressure (ICD-10-PCS; principal; 2016-06-29)
DX: I11.0 Hypertensive heart disease with heart failure (principal); J96.01 Acute respiratory failure with hypoxia; E87.1 Hypo-osmolality and hyponatremia; N17.9 Acute kidney failure, unspecified; L03.114 Cellulitis of left upper limb; R78.81 Bacteremia; L02.414 Cutaneous abscess of left upper limb; T81.72XA Complication of vein following a procedure, not elsewhere classified, initial encounter; I50.21 Acute systolic (congestive) heart failure; E11.649 Type 2 diabetes mellitus with hypoglycemia without coma; Z79.4 Long term (current) use of insulin; E78.5 Hyperlipidemia, unspecified; E03.9 Hypothyroidism, unspecified; R60.0 Localized edema; L97.529 Non-pressure chronic ulcer of other part of left foot with unspecified severity; E83.42 Hypomagnesemia; R63.0 Anorexia; Z68.20 Body mass index [BMI] 20.0-20.9, adult; Y92.230 Patient room in hospital as the place of occurrence of the external cause; B95.61 Methicillin susceptible Staphylococcus aureus infection as the cause of diseases classified elsewhere; E11.51 Type 2 diabetes mellitus with diabetic peripheral angiopathy without gangrene
CPT/HCPCS: 36415; 36569; 71010-TC; 73201-TC-RT; 76882; 77001-TC; 78452-TC; 80048; 80053; 80061; 81003; 82550; 82553; 82947; 83036; 83525; 83527; 83605; 83735; 83880; 84100; 84439; 84443; 84484; 85025; 85027; 85610; 85651; 86140; 87040; 87070; 87086; 87186; 87205; 87254; 87804; 93005; 93010; 93017; 93306-TC; 93925-TC; 94010; 94660; 94761; 97116-GP; 97161-GP; 97164-GP; 99284-25; A9502; C1751; J1644